=== PATIENT | female | born 1995 | race Caucasian/White ===

== ENCOUNTER 2017-02-27 22:32 | Emergency (ER) | payer SELFPAY ==
[2017-02-27] MEDS ORDERED: Ondansetron 4 MG Tab.DIS PO ONE (23:46)
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
[2017-02-28 00:12] VITALS: BP 124/58
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
== END 2017-02-28 00:12 | disposition home or self-care (01) ==
LOC: MW.ED 22:32
DX: S06.0X0A Concussion without loss of consciousness, initial encounter (principal); F17.210 Nicotine dependence, cigarettes, uncomplicated; Z91.040 Latex allergy status; Z88.8 Allergy status to other drugs, medicaments and biological substances; V49.9XXA Car occupant (driver) (passenger) injured in unspecified traffic accident, initial encounter
CPT/HCPCS: 70450; 81025; 99284; A9270; 99283

== ENCOUNTER 2017-03-08 02:52 | Emergency (ER) | payer SELFPAY ==
[2017-03-08] MEDS ORDERED: Silver Sulfadiazine 1% Crm 50 GM Tube TOP ONE (02:57)
[2017-03-08] MEDS ORDERED: Bacitracin/Neomycin/Polymyxin B Oint 28.4 GM Tube TOP ONE (03:12)
[2017-03-08] MEDS ORDERED: Ketorolac 60 MG/2 ML SDV IM ONE (03:13)
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
[2017-03-08 04:30] VITALS: BP 140/75
== END 2017-03-08 04:26 | disposition home or self-care (01) ==
LOC: MW.ED 02:52
DX: T20.00XA Burn of unspecified degree of head, face, and neck, unspecified site, initial encounter (principal); T23.002A Burn of unspecified degree of left hand, unspecified site, initial encounter; F17.210 Nicotine dependence, cigarettes, uncomplicated; Z88.8 Allergy status to other drugs, medicaments and biological substances; Z91.040 Latex allergy status; Z98.890 Other specified postprocedural states; X03.0XXA Exposure to flames in controlled fire, not in building or structure, initial encounter
CPT/HCPCS: 16000; 96372; 99284; A9270; J1885; 99283

== ENCOUNTER 2017-03-16 14:51 | Emergency (ER) | payer SELFPAY ==
[2017-03-16] MEDS ORDERED: cefTRIAXone 250 MG Vial IM ONE (15:49)
[2017-03-16] MEDS ORDERED: Silver Sulfadiazine 1% Crm 50 GM Tube TOP ONE (15:49)
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
[2017-03-16] MEDS ORDERED: Lidocaine 2% 5 ML SDV INJECT ONE (16:33)
[2017-03-16] MEDS ORDERED: cefTRIAXone 1,000 MG VIAL IM ONE (16:45)
[2017-03-16 18:39] VITALS: BP 117/67
== END 2017-03-16 17:06 | disposition home or self-care (01) ==
LOC: MW.ED 14:51
DX: T22.20XD Burn of second degree of shoulder and upper limb, except wrist and hand, unspecified site, subsequent encounter (principal); L08.9 Local infection of the skin and subcutaneous tissue, unspecified; J45.909 Unspecified asthma, uncomplicated; F32.9 Major depressive disorder, single episode, unspecified; F17.210 Nicotine dependence, cigarettes, uncomplicated; Z88.8 Allergy status to other drugs, medicaments and biological substances; Z91.040 Latex allergy status
CPT/HCPCS: 16020; 96372; 99283; A9270; J0696

== ENCOUNTER 2017-05-15 22:30 | Emergency (ER) | payer SELFPAY ==
--- NOTE | 2017-05-15 23:23 | EDM.PDOC ---
ED HPI GENERAL MEDICAL PROBLEM - General Chief Complaint: Abdominal Pain Stated Complaint: ABDOMINAL PAIN Time Seen by Provider: 05/15/17 23:18 - History of Present Illness INITIAL COMMENTS - FREE TEXT/NARRATIVE: HISTORY AND PHYSICAL: History of present illness: The patient is a healthy 22-year-old female who presents with complaints of left lower quadrant pain that started since her last period which started on May 03 and the pain seemed to worsen a proximally 9 days ago. She says it comes and goes in intensity and is not associated with nausea vomiting fever chills flank pain dysuria or hematuria. The patient has a significant surgical history of having 2 laparoscopies done in the past in [place], the last one was in August 2016, and on that last one she was diagnosed with endometriosis and she had a large left ovarian cyst that was drained surgically. Patient said she has a history of multiple ovarian cysts. Patient has been eating and drinking normally but she says that she's had a recent change in diet and over the last few months she has had more loose stools that are not black or bloody and she has not seen her provider for that. The patient denies abdominal pain or cramping with her bowel movements and is more concerned about possibly an ovarian cyst. The patient is sexually active and does not use protection and is unsure if she's but she did do a test the middle of April that was negative. The patient currently is not having any vaginal bleeding or spotting and has no dysuria frequency or urgency. She has not taken anything today for the pain. She says presses on the area of her left lower quadrant the pain gets better. Patient has one partner and says that she is having unprotected sex because she would not mind getting she has no vaginal discharge Review of systems: As per history of present illness and below otherwise all systems reviewed and negative. Past medical history: As per history of present illness and as reviewed below otherwise noncontributory. Surgical history: As per history of present illness and as reviewed below otherwise noncontributory. Social history: No reported history of drug or alcohol abuse. Family history: As per history of present illness and as reviewed below otherwise noncontributory. Physical exam: Gen.: Well-developed well-nourished female who is nontoxic and moves easily in the ED without distress. Vital signs are noted by me HEENT: Atraumatic, normocephalic, negative for conjunctival pallor or scleral icterus, mucous membranes moist, throat clear, neck supple, nontender, trachea midline. Lungs: Clear to auscultation, breath sounds equal bilaterally, chest nontender. Heart: S1S2, regular rate and rhythm no overt murmurs Abdomen: Soft, nondistended, there is no fullness no tympany on percussion and bowel sounds are hypoactive. There is minimal tenderness on deep palpation in the left lower quadrant and no tenderness throughout the rest of the abdomen. There is no rebound or guarding. Negative for masses or hepatosplenomegaly. Pelvis: Stable nontender. Genitourinary: Deferred. Rectal: Deferred. Extremities: Atraumatic, negative for cords or calf pain. Neurovascular unremarkable. Neuro: Awake, alert, oriented. Cranial nerves II through XII unremarkable. Cerebellum unremarkable. Motor and sensory unremarkable throughout. Exam nonfocal. Diagnostics: UA UCG urine culture if indicated CBC CMP pelvic ultrasound Therapeutics: If UCG is negative, Toradol Impression: Left lower quadrant pain with history of endometriosis, stable Definitive disposition and diagnosis as appropriate pending reevaluation and review of above. abdominal Pain Score (Numeric/FACES): 6 - Related Data Allergies Allergy/AdvReac Type Severity Reaction Status Date / Time latex Allergy Blisters Verified 05/15/17 22:34 Latex, Natural Rubber Allergy Blisters Verified 05/15/17 22:34 phenazopyridine Allergy Vomiting Verified 05/15/17 22:34 [From Pyridium] chloraprep Allergy Blisters Uncoded 05/15/17 22:34 Home Meds: Home Meds . [No Known Home Meds] 02/27/17 [History] Past Medical History - Past Health History Medical/Surgical History: Denies Medical/Surgical History HEENT History: Reports: None Cardiovascular History: Reports: Other (See Below) Other Cardiovascular History: Heart conditon but doesn't know the exact diagnosis Respiratory History: Reports: Asthma Gastrointestinal History: Reports: None Genitourinary History: Reports: None Other Genitourinary History: endometriosis CLIENT LIAISON History: Reports: 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 Other OB/BYN History: pt reports not being on control Musculoskeletal History: Reports: None Neurological History: Reports: None Psychiatric History: Reports: Anxiety, Depression Endocrine/Metabolic History: Reports: None Hematologic History: Reports: None Immunologic History: Reports: None Oncologic (Cancer) History: Reports: None Dermatologic History: Reports: None - Infectious Disease History Infectious Disease History: Reports: Herpes - Past Surgical History GI Surgical History: Reports: Other (See Below) Other GI Surgeries/Procedures: Laparoscopy Social & Family History - Family History Family Medical History: Noncontributory - Tobacco Use Smoking Status *Q: Current Every Day Smoker Years of Tobacco use: 6 Packs/Tins Daily: 1 Used Tobacco, but Quit: No Second Hand Smoke Exposure: No - Caffeine Use Caffeine Use: Reports: None Caffeine Use Comment: 3drinks/day - Recreational Drug Use Recreational Drug Use: No ED ROS GENERAL - Review of Systems Review Of Systems: ROS reveals no pertinent complaints other than HPI. ED EXAM, GENERAL - Physical Exam Exam: See Below (See dictation) Course - Vital Signs Last Recorded V/S: Last Vital Signs Temp 36.3 C 05/15/17 22:35 Pulse 97 05/15/17 22:35 Resp 14 05/15/17 22:35 BP 136/78 05/15/17 22:35 Pulse Ox 95 05/15/17 22:35 - Orders/Labs/Meds Orders: Active Orders 24 hr Category Date Time Status Pelvis Non OB Comp [US] Stat Exams 05/15/17 23:19 Ordered Labs: Laboratory Tests 05/15/17 05/15/17 05/15/17 Range/Units 23:20 23:20 23:26 WBC 9.95 (4.0-11.0) K/uL RBC 4.33 (4.30-5.90) M/uL Hgb 13.0 (12.0-16.0) g/dL Hct 38.0 (36.0-46.0) % MCV 87.8 (80.0-98.0) fL MCH 30.0 (27.0-32.0) pg MCHC 34.2 (31.0-37.0) g/dL RDW Std Deviation 42.7 (28.0-62.0) fl RDW Coeff of [place] 13 (11.0-15.0) % Plt Count 309 (150-400) K/uL MPV 9.60 (7.40-12.00) fL Neut % (Auto) 66.7 (48.0-80.0) % Lymph % (Auto) 25.5 (16.0-40.0) % [place] % (Auto) 6.4 (0.0-15.0) % Eos % (Auto) 1.2 (0.0-7.0) % Baso % (Auto) 0.2 (0.0-1.5) % Neut # (Auto) 6.6 H (1.4-5.7) K/uL Lymph # (Auto) 2.5 H (0.6-2.4) K/uL [place] # (Auto) 0.6 (0.0-0.8) K/uL Eos # (Auto) 0.1 (0.0-0.7) K/uL Baso # (Auto) 0.0 (0.0-0.1) K/uL Nucleated RBC % 0.0 /100WBC Nucleated RBCs # 0 K/uL Sodium (136-146) mmol/L Potassium (3.5-5.1) mmol/L Chloride (98-110) mmol/L Carbon Dioxide (21-31) mmol/L BUN (6.0-23.0) mg/dL Creatinine (0.6-1.5) mg/dL Est Cr Clr Drug Dosing mL/min Estimated GFR (MDRD) ml/min Glucose (60-110) mg/dL Calcium (8.8-10.8) mg/dL Total Bilirubin (0.1-1.5) mg/dL AST (5-40) IU/L ALT (8-54) IU/L Alkaline Phosphatase (40-150) Total Protein (6.0-8.0) g/dL Albumin (3.5-5.0) g/dL Globulin (2.0-3.5) g/dL Albumin/Globulin Ratio (1.3-2.8) Urine Color YELLOW Urine Appearance SLT CLOUDY Urine pH 7.5 (5.0-8.0) Ur Specific [place] 1.020 (1.001-1.035) Urine Protein NEGATIVE (NEGATIVE) mg/dL Urine Glucose (UA) NEGATIVE (NEGATIVE) mg/dL Urine Ketones NEGATIVE (NEGATIVE) mg/dL Urine Occult Blood TRACE-INTACT (NEGATIVE) Urine Nitrite NEGATIVE (NEGATIVE) Urine Bilirubin NEGATIVE (NEGATIVE) Urine Urobilinogen 0.2 (<2.0) EU/dL Ur Leukocyte Esterase NEGATIVE (NEGATIVE) Urine RBC 0-3 (0-2/HPF) Urine WBC 0-1 (0-5/HPF) Ur Epithelial Cells RARE (NONE-FEW) Amorphous Sediment LIGHT (NEGATIVE) Urine Bacteria FEW (NEGATIVE) Urine HCG, Qual NEGATIVE (NEGATIVE) 05/15/17 Range/Units 23:26 WBC (4.0-11.0) K/uL RBC (4.30-5.90) M/uL Hgb (12.0-16.0) g/dL Hct (36.0-46.0) % MCV (80.0-98.0) fL MCH (27.0-32.0) pg MCHC (31.0-37.0) g/dL RDW Std Deviation (28.0-62.0) fl RDW Coeff of [place] (11.0-15.0) % Plt Count (150-400) K/uL MPV (7.40-12.00) fL Neut % (Auto) (48.0-80.0) % Lymph % (Auto) (16.0-40.0) % [place] % (Auto) (0.0-15.0) % Eos % (Auto) (0.0-7.0) % Baso % (Auto) (0.0-1.5) % Neut # (Auto) (1.4-5.7) K/uL Lymph # (Auto) (0.6-2.4) K/uL [place] # (Auto) (0.0-0.8) K/uL Eos # (Auto) (0.0-0.7) K/uL Baso # (Auto) (0.0-0.1) K/uL Nucleated RBC % /100WBC Nucleated RBCs # K/uL Sodium 139 (136-146) mmol/L Potassium 3.8 (3.5-5.1) mmol/L Chloride 105 (98-110) mmol/L Carbon Dioxide 24 (21-31) mmol/L BUN 11 (6.0-23.0) mg/dL Creatinine 0.8 (0.6-1.5) mg/dL Est Cr Clr Drug Dosing 109.08 mL/min Estimated GFR (MDRD) > 60.0 ml/min Glucose 100 (60-110) mg/dL Calcium 9.9 (8.8-10.8) mg/dL Total Bilirubin 0.4 (0.1-1.5) mg/dL AST 12 (5-40) IU/L ALT 9 (8-54) IU/L Alkaline Phosphatase 64 (40-150) Total Protein 7.8 (6.0-8.0) g/dL Albumin 4.7 (3.5-5.0) g/dL Globulin 3.1 (2.0-3.5) g/dL Albumin/Globulin Ratio 1.5 (1.3-2.8) Urine Color Urine Appearance Urine pH (5.0-8.0) Ur Specific [place] (1.001-1.035) Urine Protein (NEGATIVE) mg/dL Urine Glucose (UA) (NEGATIVE) mg/dL Urine Ketones (NEGATIVE) mg/dL Urine Occult Blood (NEGATIVE) Urine Nitrite (NEGATIVE) Urine Bilirubin (NEGATIVE) Urine Urobilinogen (<2.0) EU/dL Ur Leukocyte Esterase (NEGATIVE) Urine RBC (0-2/HPF) Urine WBC (0-5/HPF) Ur Epithelial Cells (NONE-FEW) Amorphous Sediment (NEGATIVE) Urine Bacteria (NEGATIVE) Urine HCG, Qual (NEGATIVE) Meds: Medications Discontinued Medications Generic Name Dose Route Start Last Admin Trade Name Freq PRN Reason Stop Dose Admin Ketorolac Tromethamine 60 mg 05/16/17 00:02 05/16/17 00:34 Toradol IM 05/16/17 00:03 60 mg ONETIME ONE Administration Departure - Departure Time of Disposition: 00:50 Disposition: Home, Self-Care 01 Condition: Good Clinical Impression: Pelvic pain - Discharge Information Forms: ED Department Discharge Additional Instructions: The following information is given to patients seen in the emergency department who are being discharged to home. This information is to outline your options for follow-up care. We provide all patients seen in our emergency department with a follow-up referral. The need for follow-up, as well as the timing and circumstances, are variable depending upon the specifics of your emergency department visit. If you don't have a primary care physician on staff, we will provide you with a referral. We always advise you to contact your personal physician following an emergency department visit to inform them of the circumstance of the visit and for follow-up with them and/or the need for any referrals to a consulting specialist. The emergency department will also refer you to a specialist when appropriate. This referral assures that you have the opportunity for followup care with a specialist. All of these measure are taken in an effort to provide you with optimal care, which includes your followup. Under all circumstances we always encourage you to contact your private physician who remains a resource for coordinating your care. When calling for followup care, please make the office aware that this follow-up is from your recent emergency room visit. If for any reason you are refused follow-up, please contact the [facility] emergency department at and ask to speak to the emergency department charge nurse. [facility] [address] [address] Please use [id number] medications for pain and discomfort and please call tomorrow to get a clinic appointment as we discussed in the next few days. Return to ER as needed and as discussed - My Orders Last 24 Hours: My Active Orders 05/15/17 23:19 Pelvis Non OB Comp [US] Stat - Assessment/Plan Last 24 Hours: My Active Orders 05/15/17 23:19 Pelvis Non OB Comp [US] Stat
[2017-05-15 23:54] LABS: CHLORIDE,CL 105 mmol/L (98-110); SODIUM,NA 139 mmol/L (136-146)
[2017-05-16] MEDS ORDERED: Ketorolac 60 MG/2 ML SDV IM ONE (00:02)
[2017-05-16 01:19] VITALS: BP 123/66
--- NOTE | 2017-05-16 13:34 | US ---
EXAM DATE: 05/15/17 PATIENT'S AGE: 22 Patient: VANESSA CLARKE Facility: [place], [place] Site . Site : 1997 Study: US Pelvis [id number] 12:09:20 AM Ordering Physician: Doctor Andrade Final Report: INDICATION: LT PELVIC PAIN TECHNIQUE: Ultrasound pelvis transabdominal and transvaginal. Real time sonographic images with Spectral and color Doppler imaging of the ovaries were obtained. COMPARISON: None FINDINGS: Uterus: 7.9 x 4.8 x 3.2 cm. Normal echotexture of the myometrium. No masses. Small amount fluid within the cervical canal Endometrium: 8 mm. No sign of endometrial mass or fluid. Right ovary: 3.6 x 2.4 x 3.2 cm. No ovarian or adnexal masses. Normal arterial and venous blood flow. Left ovary: 3.9 x 2.9 x 4.2 cm. Dominant follicular cyst. No solid ovarian or adnexal masses. Normal arterial and venous blood flow. Cul-de-sac: Trace amount of free fluid within the pelvic cul-de-sac. IMPRESSION: Nonspecific fluid within the cervical canal. Dictated by Joshua Alcala MD @ 05/16/2017 12:12:49 AM Dictated by: Joshua Alcala MD @ 05/16/2017 00:13:57 (Electronic Signature) Report Signed by Proxy. LAWANDA
== END 2017-05-16 01:14 | disposition home or self-care (01) ==
LOC: MW.ED 22:30
DX: R10.2 Pelvic and perineal pain (principal); R10.32 Left lower quadrant pain; J45.909 Unspecified asthma, uncomplicated; Z91.040 Latex allergy status; Z88.8 Allergy status to other drugs, medicaments and biological substances; F17.210 Nicotine dependence, cigarettes, uncomplicated
CPT/HCPCS: 36415; 76856; 80053; 81001; 81025; 85025; 96372; 99284; J1885; 99283

== ENCOUNTER 2017-05-16 22:51 | Emergency (ER) | payer SELFPAY ==
[2017-05-16] MEDS ORDERED: Ondansetron 4 MG/2 ML SDV IVPUSH ONE (22:57)
[2017-05-16] MEDS ORDERED: Ketorolac 30 MG/ML SDV IVPUSH ONE (22:57)
[2017-05-16] MEDS ORDERED: Sodium Chloride 0.9% 1,000 ML IV ONE (22:57)
--- NOTE | 2017-05-16 22:59 | EDM.PDOC ---
ED HPI GENERAL MEDICAL PROBLEM - General Chief Complaint: Abdominal Pain Stated Complaint: LOWER ABDOMINAL PAIN Time Seen by Provider: 05/16/17 22:58 Source of Information: Reports: Patient - History of Present Illness INITIAL COMMENTS - FREE TEXT/NARRATIVE: HISTORY AND PHYSICAL: History of present illness: Patient in for left lower quadrant pain, see Dr. Saunders's note from yesterday with same complaint Patient has a history of endometriosis associated with left lower quadrant pain she states"is in for the usual". She is also had a history of ovarian cysts, ultrasound was performed yesterday and essentially negative per radiology No fever nausea vomiting chills sweats no chest pain shortness breath headache dizziness or palpitation no bowel or urine symptoms Review of systems: As per history of present illness and below otherwise all systems reviewed and negative. Past medical history: As per history of present illness and as reviewed below otherwise noncontributory. Surgical history: As per history of present illness and as reviewed below otherwise noncontributory. Social history: No reported history of drug or alcohol abuse. Family history: As per history of present illness and as reviewed below otherwise noncontributory. Physical exam: HEENT: Atraumatic, normocephalic, pupils reactive, negative for conjunctival pallor or scleral icterus, mucous membranes moist, throat clear, neck supple, nontender, trachea midline. Lungs: Clear to auscultation, breath sounds equal bilaterally, chest nontender. Heart: S1S2, regular, negative for clicks, rubs, or JVD. Abdomen: Soft, nondistended, nontender. Negative for masses or hepatosplenomegaly. Negative for costovertebral tenderness. Pelvis: Stable nontender. Genitourinary: Deferred. Rectal: Deferred. Extremities: Atraumatic, negative for cords or calf pain. Neurovascular unremarkable. Neuro: Awake, alert, oriented. Cranial nerves II through XII unremarkable. Cerebellum unremarkable. Motor and sensory unremarkable throughout. Exam nonfocal. Diagnostics: []Lab as below Therapeutics: []1 L normal saline bolus Toradol 30 mg IV Zofran 8 mg IV Cata[place] 50 mg by mouth 3 times a day when necessary #30 no refill Follow-up with [facility] Impression: Left lower quadrant pain, history of endometriosis with similar pain Definitive disposition and diagnosis as appropriate pending reevaluation and review of above. lower abdominal area Pain Score (Numeric/FACES): 8 - Related Data Allergies Allergy/AdvReac Type Severity Reaction Status Date / Time latex Allergy Blisters Verified 05/16/17 22:57 Latex, Natural Rubber Allergy Blisters Verified 05/16/17 22:57 phenazopyridine Allergy Vomiting Verified 05/16/17 22:57 [From Pyridium] chloraprep Allergy Blisters Uncoded 05/16/17 22:57 Home Meds: Home Meds . 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 Other OB/BYN History: pt reports not being on control Musculoskeletal History: Reports: None Neurological History: Reports: None Psychiatric History: Reports: Anxiety, Depression Endocrine/Metabolic History: Reports: None Hematologic History: Reports: None Immunologic History: Reports: None Oncologic (Cancer) History: Reports: None Dermatologic History: Reports: None - Infectious Disease History Infectious Disease History: Reports: Herpes - Past Surgical History GI Surgical History: Reports: Other (See Below) Other GI Surgeries/Procedures: Laparoscopy Social & Family History - Family History Family Medical History: Noncontributory - Tobacco Use Smoking Status *Q: Current Every Day Smoker Years of Tobacco use: 6 Packs/Tins Daily: 1 Used Tobacco, but Quit: No Second Hand Smoke Exposure: No - Caffeine Use Caffeine Use: Reports: None Caffeine Use Comment: 3drinks/day - Recreational Drug Use Recreational Drug Use: No ED ROS GENERAL - Review of Systems Review Of Systems: ROS reveals no pertinent complaints other than HPI. ED EXAM, GENERAL - Physical Exam Exam: See Below Course - Vital Signs Last Recorded V/S: Last Vital Signs Temp 36.2 C 05/16/17 22:57 Pulse 111 H 05/16/17 22:57 Resp 18 05/16/17 22:57 BP 131/75 05/16/17 22:57 Pulse Ox 98 05/16/17 22:57 - Orders/Labs/Meds Orders: Active Orders 24 hr Category Date Time Status HCG QUALITATIVE,URINE [URCHEM] Stat Lab 05/16/17 22:57 Uncollected UA W/MICROSCOPIC [URIN] Stat Lab 05/16/17 22:57 Uncollected Ondansetron [Zofran ODT] Med 05/17/17 00:14 Active 8 mg PO ONETIME PRN Medication Orders Ondansetron HCl (Zofran Odt) 8 mg PO ONETIME PRN PRN Reason: Nausea/Vomiting Labs: Laboratory Tests 05/16/17 05/16/17 05/16/17 Range/Units 23:17 23:17 23:17 WBC 8.48 (4.0-11.0) K/uL RBC 4.28 L (4.30-5.90) M/uL Hgb 12.8 (12.0-16.0) g/dL Hct 37.6 (36.0-46.0) % MCV 87.9 (80.0-98.0) fL MCH 29.9 (27.0-32.0) pg MCHC 34.0 (31.0-37.0) g/dL RDW Std Deviation 42.8 (28.0-62.0) fl RDW Coeff of [place] 14 (11.0-15.0) % Plt Count 298 (150-400) K/uL MPV 9.30 (7.40-12.00) fL Neut % (Auto) 67.7 (48.0-80.0) % Lymph % (Auto) 25.2 (16.0-40.0) % [place] % (Auto) 6.0 (0.0-15.0) % Eos % (Auto) 0.9 (0.0-7.0) % Baso % (Auto) 0.2 (0.0-1.5) % Neut # (Auto) 5.7 (1.4-5.7) K/uL Lymph # (Auto) 2.1 (0.6-2.4) K/uL [place] # (Auto) 0.5 (0.0-0.8) K/uL Eos # (Auto) 0.1 (0.0-0.7) K/uL Baso # (Auto) 0.0 (0.0-0.1) K/uL Nucleated RBC % 0.0 /100WBC Nucleated RBCs # 0 K/uL Sodium 141 (136-146) mmol/L Potassium 3.8 (3.5-5.1) mmol/L Chloride 109 (98-110) mmol/L Carbon Dioxide 23 (21-31) mmol/L BUN 15 (6.0-23.0) mg/dL Creatinine 0.9 (0.6-1.5) mg/dL Est Cr Clr Drug Dosing 96.71 mL/min Estimated GFR (MDRD) > 60.0 ml/min Glucose 88 (60-110) mg/dL Calcium 9.4 (8.8-10.8) mg/dL Total Bilirubin 0.6 (0.1-1.5) mg/dL AST 12 (5-40) IU/L ALT 9 (8-54) IU/L Alkaline Phosphatase 61 (40-150) C-Reactive Protein 0.05 (0.0-0.5) mg/dL Total Protein 7.4 (6.0-8.0) g/dL Albumin 4.5 (3.5-5.0) g/dL Globulin 2.9 (2.0-3.5) g/dL Albumin/Globulin Ratio 1.6 (1.3-2.8) Amylase 38 (10-90) U/L Lipase 12 (7-80) U/L Meds: Medications Generic Name Dose Route Start Last Admin Trade Name Freq PRN Reason Stop Dose Admin Ondansetron HCl 8 mg 05/17/17 00:14 Zofran Odt PO ONETIME PRN Nausea/Vomiting Discontinued Medications Generic Name Dose Route Start Last Admin Trade Name Freq PRN Reason Stop Dose Admin Sodium Chloride 1,000 mls @ 999 mls/hr 05/16/17 22:57 05/16/17 23:43 Normal Saline IV 05/16/17 23:57 Not Given STAT ONE Ketorolac Tromethamine 30 mg 05/16/17 22:57 05/16/17 23:43 Toradol IVPUSH 05/16/17 22:58 Not Given ONETIME ONE Ketorolac Tromethamine 60 mg 05/16/17 23:12 05/16/17 23:23 Toradol IM 05/16/17 23:13 60 mg ONETIME ONE Administration Ondansetron HCl 8 mg 05/16/17 22:57 05/16/17 23:43 Zofran IVPUSH 05/16/17 22:58 Not Given ONETIME ONE Departure - Departure Time of Disposition: 00:28 Disposition: Home, Self-Care 01 Condition: Good Clinical Impression: Abdominal pain - Discharge Information Forms: ED Department Discharge Additional Instructions: Medication as prescribed Return if symptoms persist or worsen 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 This information is to outline your options for follow-up care. We provide all patients seen in our emergency department with a follow-up referral. The need for follow-up, as well as the timing and circumstances, are variable depending upon the specifics of your emergency department visit. If you don't have a primary care physician on staff, we will provide you with a referral. We always advise you to contact your personal physician following an emergency department visit to inform them of the circumstance of the visit and for follow-up with them and/or the need for any referrals to a consulting specialist. The emergency department will also refer you to a specialist when appropriate. This referral assures that you have the opportunity for follow-up care with a specialist. All of these measure are taken in an effort to provide you with optimal care, which includes your follow-up. Under all circumstances we always encourage you to contact your private physician who remains a resource for coordinating your care. When calling for follow-up care, please make the office aware that this follow-up is from your recent emergency room visit. If for any reason you are refused follow-up, please contact the [facility] emergency department at and asked to speak to the emergency department charge nurse. - My Orders Last 24 Hours: My Active Orders 05/16/17 22:57 HCG QUALITATIVE,URINE [URCHEM] Stat UA W/MICROSCOPIC [URIN] Stat 05/17/17 00:14 Ondansetron [Zofran ODT] 8 mg PO ONETIME PRN - Assessment/Plan Last 24 Hours: My Active Orders 05/16/17 22:57 HCG QUALITATIVE,URINE [URCHEM] Stat UA W/MICROSCOPIC [URIN] Stat 05/17/17 00:14 Ondansetron [Zofran ODT] 8 mg PO ONETIME PRN
[2017-05-16] MEDS ORDERED: Ketorolac 60 MG/2 ML SDV IM ONE (23:12)
[2017-05-16 23:49] LABS: CHLORIDE,CL 109 mmol/L (98-110); SODIUM,NA 141 mmol/L (136-146)
[2017-05-17] MEDS ORDERED: Ondansetron 4 MG Tab.DIS PO PRN (00:14)
[2017-05-17 03:07] VITALS: BP 109/69
== END 2017-05-17 00:38 | disposition home or self-care (01) ==
LOC: MW.ED 22:51
DX: R10.32 Left lower quadrant pain (principal); J45.909 Unspecified asthma, uncomplicated; F17.210 Nicotine dependence, cigarettes, uncomplicated; Z91.040 Latex allergy status; Z88.8 Allergy status to other drugs, medicaments and biological substances
CPT/HCPCS: 36415; 80053; 82150; 83690; 85025; 86140; 96372; 99284; A9270; J1885; 99283

== ENCOUNTER 2017-07-23 00:02 | Emergency (ER) | payer SELFPAY ==
--- NOTE | 2017-07-23 00:38 | EDM.PDOC ---
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 Began having some bleeding and passed a couple of small clots today no fever nausea vomiting chills sweats no chest pain shortness breath headache dizziness palpitation no bowel or urine symptoms ] Review of systems: As per history of present illness and below otherwise all systems reviewed and negative. Past medical history: As per history of present illness and as reviewed below otherwise noncontributory. Surgical history: As per history of present illness and as reviewed below otherwise noncontributory. Social history: No reported history of drug or alcohol abuse. Family history: As per history of present illness and as reviewed below otherwise noncontributory. Physical exam: HEENT: Atraumatic, normocephalic, pupils reactive, negative for conjunctival pallor or scleral icterus, mucous membranes moist, throat clear, neck supple, nontender, trachea midline. Lungs: Clear to auscultation, breath sounds equal bilaterally, chest nontender. Heart: S1S2, regular, negative for clicks, rubs, or JVD. Abdomen: Soft, nondistended, nontender. Negative for masses or hepatosplenomegaly. Negative for costovertebral tenderness. Pelvis: Stable nontender. Genitourinary: Cervix is closed no products of conception no mass scarred lesion Rectal: Deferred. Extremities: Atraumatic, negative for cords or calf pain. Neurovascular unremarkable. Neuro: Awake, alert, oriented. Cranial nerves II through XII unremarkable. Cerebellum unremarkable. Motor and sensory unremarkable throughout. Exam nonfocal. Diagnostics: [Lab as below Ultrasound OB ] Therapeutics: [Normal saline bolus Zofran 8 mg IV ] Impression: LMP June 09, 2017 [Negative hCGs Positive home tests 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 with irregular menstruation Cervix closed Blood type AB positive Definitive disposition and diagnosis as appropriate pending reevaluation and review of above. Lower Back Pain Score (Numeric/FACES): 8 - Related Data Allergies Allergy/AdvReac Type Severity Reaction Status Date / Time latex Allergy Blisters Verified 07/23/17 00:25 Latex, Natural Rubber Allergy Blisters Verified 07/23/17 00:25 phenazopyridine Allergy Vomiting Verified 07/23/17 00:25 [From Pyridium] chloraprep Allergy Blisters Uncoded 07/23/17 00:25 Home Meds: Home Meds Vit #108/Iron/FA [ One Tablet] 1 each PO DAILY 07/23/17 [ History] Past Medical History - Past Health History Medical/Surgical History: Denies Medical/Surgical History HEENT History: Reports: None Cardiovascular History: Reports: Other (See Below) Other Cardiovascular History: Heart conditon but doesn't know the exact diagnosis Respiratory History: Reports: Asthma Gastrointestinal History: Reports: None Genitourinary History: Reports: None Other Genitourinary History: endometriosis 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 Other OB/BYN History: pt reports not being on control Musculoskeletal History: Reports: None Neurological History: Reports: None Psychiatric History: Reports: Anxiety, Depression Endocrine/Metabolic History: Reports: None Hematologic History: Reports: None Immunologic History: Reports: None Oncologic (Cancer) History: Reports: None Dermatologic History: Reports: None - Infectious Disease History Infectious Disease History: Reports: Herpes - Past Surgical History GI Surgical History: Reports: Other (See Below) Other GI Surgeries/Procedures: Laparoscopy Social & Family History - Family History Family Medical History: Noncontributory - Tobacco Use Smoking Status *Q: Current Every Day Smoker Years of Tobacco use: 6 Packs/Tins Daily: 1 Used Tobacco, but Quit: No Second Hand Smoke Exposure: No - Caffeine Use Caffeine Use: Reports: None Caffeine Use Comment: 3drinks/day - Recreational Drug Use Recreational Drug Use: No ED ROS GENERAL - Review of Systems Review Of Systems: ROS reveals no pertinent complaints other than HPI. ED EXAM, GENERAL - Physical Exam Exam: See Below Course - Vital Signs Last Recorded V/S: Last Vital Signs Temp 36.8 C 07/23/17 00:28 Pulse 98 07/23/17 00:28 Resp 19 07/23/17 00:28 BP 119/75 07/23/17 00:28 Pulse Ox 98 07/23/17 00:28 - Orders/Labs/Meds Orders: Active Orders 24 hr Category Date Time Status OB 1st Tri Sgl 1st Gest [US] Stat Exams 07/23/17 00:36 Taken Labs: Laboratory Tests 07/23/17 07/23/17 07/23/17 Range/Units 00:50 00:50 00:50 WBC 9.50 (4.0-11.0) K/uL RBC 4.28 L (4.30-5.90) M/uL Hgb 13.1 (12.0-16.0) g/dL Hct 37.7 (36.0-46.0) % MCV 88.1 (80.0-98.0) fL MCH 30.6 (27.0-32.0) pg MCHC 34.7 (31.0-37.0) g/dL RDW Std Deviation 43.4 (28.0-62.0) fl RDW Coeff of [place] 13 (11.0-15.0) % Plt Count 299 (150-400) K/uL MPV 9.40 (7.40-12.00) fL Neut % (Auto) 52.9 (48.0-80.0) % Lymph % (Auto) 34.8 (16.0-40.0) % [place] % (Auto) 8.6 (0.0-15.0) % Eos % (Auto) 3.4 (0.0-7.0) % Baso % (Auto) 0.3 (0.0-1.5) % Neut # (Auto) 5.0 (1.4-5.7) K/uL Lymph # (Auto) 3.3 H (0.6-2.4) K/uL [place] # (Auto) 0.8 (0.0-0.8) K/uL Eos # (Auto) 0.3 (0.0-0.7) K/uL Baso # (Auto) 0.0 (0.0-0.1) K/uL Nucleated RBC % 0.0 /100WBC Nucleated RBCs # 0 K/uL Sodium 139 (136-146) mmol/L Potassium 3.4 L (3.5-5.1) mmol/L Chloride 107 (98-110) mmol/L Carbon Dioxide 23 (21-31) mmol/L BUN 10 (6.0-23.0) mg/dL Creatinine 0.8 (0.6-1.5) mg/dL Est Cr Clr Drug Dosing 109.08 mL/min Estimated GFR (MDRD) > 60.0 ml/min Glucose 94 (60-110) mg/dL Calcium 10.1 (8.8-10.8) mg/dL Total Bilirubin 0.4 (0.1-1.5) mg/dL AST 16 (5-40) IU/L ALT 10 (8-54) IU/L Alkaline Phosphatase 61 (40-150) Total Protein 7.6 (6.0-8.0) g/dL Albumin 4.5 (3.5-5.0) g/dL Globulin 3.1 (2.0-3.5) g/dL Albumin/Globulin Ratio 1.5 (1.3-2.8) HCG, Quant < 1.2 mIU/mL Urine Color Urine Appearance Urine pH (5.0-8.0) Ur Specific [place] (1.001-1.035) Urine Protein (NEGATIVE) mg/dL Urine Glucose (UA) (NEGATIVE) mg/dL Urine Ketones (NEGATIVE) mg/dL Urine Occult Blood (NEGATIVE) Urine Nitrite (NEGATIVE) Urine Bilirubin (NEGATIVE) Urine Urobilinogen (<2.0) EU/dL Ur Leukocyte Esterase (NEGATIVE) Urine HCG, Qual (NEGATIVE) Blood Type AB POSITIVE 07/23/17 07/23/17 Range/Units 01:33 01:33 WBC (4.0-11.0) K/uL RBC (4.30-5.90) M/uL Hgb (12.0-16.0) g/dL Hct (36.0-46.0) % MCV (80.0-98.0) fL MCH (27.0-32.0) pg MCHC (31.0-37.0) g/dL RDW Std Deviation (28.0-62.0) fl RDW Coeff of [place] (11.0-15.0) % Plt Count (150-400) K/uL MPV (7.40-12.00) fL Neut % (Auto) (48.0-80.0) % Lymph % (Auto) (16.0-40.0) % [place] % (Auto) (0.0-15.0) % Eos % (Auto) (0.0-7.0) % Baso % (Auto) (0.0-1.5) % Neut # (Auto) (1.4-5.7) K/uL Lymph # (Auto) (0.6-2.4) K/uL [place] # (Auto) (0.0-0.8) K/uL Eos # (Auto) (0.0-0.7) K/uL Baso # (Auto) (0.0-0.1) K/uL Nucleated RBC % /100WBC Nucleated RBCs # K/uL Sodium (136-146) mmol/L Potassium (3.5-5.1) mmol/L Chloride (98-110) mmol/L Carbon Dioxide (21-31) mmol/L BUN (6.0-23.0) mg/dL Creatinine (0.6-1.5) mg/dL Est Cr Clr Drug Dosing mL/min Estimated GFR (MDRD) ml/min Glucose (60-110) mg/dL Calcium (8.8-10.8) mg/dL Total Bilirubin (0.1-1.5) mg/dL AST (5-40) IU/L ALT (8-54) IU/L Alkaline Phosphatase (40-150) Total Protein (6.0-8.0) g/dL Albumin (3.5-5.0) g/dL Globulin (2.0-3.5) g/dL Albumin/Globulin Ratio (1.3-2.8) HCG, Quant mIU/mL Urine Color YELLOW Urine Appearance CLEAR Urine pH 6.0 (5.0-8.0) Ur Specific [place] 1.020 (1.001-1.035) Urine Protein NEGATIVE (NEGATIVE) mg/dL Urine Glucose (UA) NEGATIVE (NEGATIVE) mg/dL Urine Ketones NEGATIVE (NEGATIVE) mg/dL Urine Occult Blood LARGE H (NEGATIVE) Urine Nitrite NEGATIVE (NEGATIVE) Urine Bilirubin NEGATIVE (NEGATIVE) Urine Urobilinogen 0.2 (<2.0) EU/dL Ur Leukocyte Esterase SMALL (NEGATIVE) Urine HCG, Qual NEGATIVE (NEGATIVE) Blood Type Meds: Medications Discontinued Medications Generic Name Dose Route Start Last Admin Trade Name Freq PRN Reason Stop Dose Admin Sodium Chloride 1,000 mls @ 999 mls/hr 07/23/17 01:22 07/23/17 02:22 Normal Saline IV 07/23/17 02:22 999 mls/hr STAT ONE Administration Morphine Sulfate 2 mg 07/23/17 01:22 07/23/17 02:31 Morphine IV 10/18/17 01:23 2 mg ONETIME ONE Administration Ondansetron HCl 8 mg 07/23/17 01:22 07/23/17 02:22 Zofran IVPUSH 07/23/17 01:23 8 mg ONETIME ONE Administration Departure - Departure Time of Disposition: 03:12 Disposition: Home, Self-Care 01 Condition: Good Clinical Impression: 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, Irregular menstruation - Discharge Information Referrals: PCP,None [Primary Care Provider] - Forms: ED Department Discharge Additional Instructions: Ibuprofen 400-800 mg by mouth 3 times a day when necessary 7-10 days Return if symptoms persist or worsen Follow-up with gynecology, call for appointment and number below for appropriate follow-up [facility] [address] [address] The following information is given to patients seen in the emergency department who are being discharged to home. This information is to outline your options for follow-up care. We provide all patients seen in our emergency department with a follow-up referral. The need for follow-up, as well as the timing and circumstances, are variable depending upon the specifics of your emergency department visit. If you don't have a primary care physician on staff, we will provide you with a referral. We always advise you to contact your personal physician following an emergency department visit to inform them of the circumstance of the visit and for follow-up with them and/or the need for any referrals to a consulting specialist. The emergency department will also refer you to a specialist when appropriate. This referral assures that you have the opportunity for follow-up care with a specialist. All of these measure are taken in an effort to provide you with optimal care, which includes your follow-up. Under all circumstances we always encourage you to contact your private physician who remains a resource for coordinating your care. When calling for follow-up care, please make the office aware that this follow-up is from your recent emergency room visit. If for any reason you are refused follow-up, please contact the [facility] emergency department at and asked to speak to the emergency department charge nurse. - My Orders Last 24 Hours: My Active Orders 07/23/17 00:36 OB 1st Tri Sgl 1st Gest [US] Stat - Assessment/Plan Last 24 Hours: My Active Orders 07/23/17 00:36 OB 1st Tri Sgl 1st Gest [US] Stat
[2017-07-23 01:17] LABS: CHLORIDE,CL 107 mmol/L (98-110); SODIUM,NA 139 mmol/L (136-146)
[2017-07-23] MEDS ORDERED: Morphine 10 MG/ML Syringe IV ONE (01:22)
[2017-07-23] MEDS ORDERED: Sodium Chloride 0.9% 1,000 ML IV ONE (01:22)
[2017-07-23] MEDS ORDERED: Ondansetron 4 MG/2 ML SDV IVPUSH ONE (01:22)
[2017-07-23 03:15] VITALS: BP 110/74
--- NOTE | 2017-07-23 13:18 | US ---
EXAM DATE: 07/23/17 PATIENT'S AGE: 22 Patient: VANESSA CLARKE Facility: [place], [place] Site . Site : 1995 Study: US OB Pelvis [id number]/23/2017 2:08:53 AM Ordering Physician: Stuart Fisher Final Report: INDICATION: Bleeding TECHNIQUE: Ultrasound OB pelvis transvaginal. Real time do scale imaging of the pelvis was performed. COMPARISON: 05/15/17. FINDINGS: LMP: 06/18/2017 Sonographic imaging demonstrates no evidence of an intrauterine gestational sac. No evidence of debris or fluid in the endometrial canal. The cervix is closed. The myometrium appears normal. The ovaries and adnexa are normal. Trace free fluid in the cul-de-sac. IMPRESSION: No evidence for intrauterine gestational sac. No fluid or debris in the endometrial canal. Correlate with beta HCG levels. Sonographically normal ovaries and adnexa. Dictated by Zeus Huffman MD @ 07/23/2017 2:23:03 AM Dictated by: Zeus Huffman MD @ 07/23/2017 02:23:09 (Electronic Signature) Report Signed by Proxy. LAWANDA
== END 2017-07-23 03:16 | disposition home or self-care (01) ==
LOC: MW.ED 00:02
DX: N92.6 Irregular menstruation, unspecified (principal); N80.9 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, unspecified; F17.210 Nicotine dependence, cigarettes, uncomplicated; Z88.8 Allergy status to other drugs, medicaments and biological substances; Z91.040 Latex allergy status
CPT/HCPCS: 36415; 76801; 80053; 81003; 81025; 84702; 85025; 86900; 86901; 96361; 96374; 96375; 99284; J2270; J2405; J7040; 99283

== ENCOUNTER 2017-10-09 22:27 | Emergency (ER) | payer SELFPAY ==
--- NOTE | 2017-10-10 00:15 | EDM.PDOC ---
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 Stated Complaint: UNK Time Seen by Provider: 10/10/17 00:15 Source of Information: Reports: Patient - History of Present Illness INITIAL COMMENTS - FREE TEXT/NARRATIVE: HISTORY AND PHYSICAL: History of present illness: [Patient with history of endometriosis presents with 5 out of 10 pain diffuse lower abdomen pelvic nonradiating pain consistent with usual symptoms she has been taking ibuprofen and Midol as well as aspirin without benefit He is currently menstruating she has had several loose stools which is consistent with her usual history no fever nausea vomiting chills sweats no chest pain shortness breath headache dizziness or palpitations no urine symptoms no vaginal discharge ] Review of systems: As per history of present illness and below otherwise all systems reviewed and negative. Past medical history: As per history of present illness and as reviewed below otherwise noncontributory. Surgical history: As per history of present illness and as reviewed below otherwise noncontributory. Social history: No reported history of drug or alcohol abuse. Family history: As per history of present illness and as reviewed below otherwise noncontributory. Physical exam: HEENT: Atraumatic, normocephalic, pupils reactive, negative for conjunctival pallor or scleral icterus, mucous membranes moist, throat clear, neck supple, nontender, trachea midline. Lungs: Clear to auscultation, breath sounds equal bilaterally, chest nontender. Heart: S1S2, regular, negative for clicks, rubs, or JVD. Abdomen: Soft, nondistended, nontender. Negative for masses or hepatosplenomegaly. Negative for costovertebral tenderness. Pelvis: Stable nontender. Genitourinary: Deferred. Rectal: Deferred. Extremities: Atraumatic, negative for cords or calf pain. Neurovascular unremarkable. Neuro: Awake, alert, oriented. Cranial nerves II through XII unremarkable. Cerebellum unremarkable. Motor and sensory unremarkable throughout. Exam nonfocal. Diagnostics: [CBC CMP UA hCG ] Therapeutics: [Toradol's 30 mg IV 1 L normal saline bolus ] Tramadol 50 mg by mouth 3 times a day when necessary #30 no refill Impression: [Abdominal pain History of endometriosis] Definitive disposition and diagnosis as appropriate pending reevaluation and review of above. lower abdomin Pain Score (Numeric/FACES): 6 - Related Data Allergies Allergy/AdvReac Type Severity Reaction Status Date / Time latex Allergy Blisters Verified 07/23/17 00:25 Latex, Natural Rubber Allergy Blisters Verified 07/23/17 00:25 lorazepam [From Ativan] Allergy Seizure Verified 10/09/17 23:12 phenazopyridine Allergy Vomiting Verified 07/23/17 00:25 [From Pyridium] chloraprep Allergy Blisters Uncoded 07/23/17 00:25 Home Meds: Home Meds valACYclovir HCl [Valtrex] 500 mg PO TID 10/09/17 [History] Past Medical History - Past Health History Medical/Surgical History: Denies Medical/Surgical History HEENT History: Reports: None Cardiovascular History: Reports: Other (See Below) Other Cardiovascular History: Heart conditon but doesn't know the exact diagnosis Respiratory History: Reports: Asthma Gastrointestinal History: Reports: None Genitourinary History: Reports: None Other Genitourinary History: endometriosis 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 Other OB/BYN History: pt reports not being on control Musculoskeletal History: Reports: None Neurological History: Reports: None Psychiatric History: Reports: Anxiety, Depression Endocrine/Metabolic History: Reports: None Hematologic History: Reports: None Immunologic History: Reports: None Oncologic (Cancer) History: Reports: None Dermatologic History: Reports: None - Infectious Disease History Infectious Disease History: Reports: None - Past Surgical History Head Surgeries/Procedures: Reports: None GI Surgical History: Reports: Other (See Below) Other GI Surgeries/Procedures: Laparoscopy Social & Family History - Family History Family Medical History: Noncontributory - Tobacco Use Smoking Status *Q: Never Smoker Years of Tobacco use: 6 Packs/Tins Daily: 1 Used Tobacco, but Quit: No Second Hand Smoke Exposure: No - Caffeine Use Caffeine Use: Reports: None Caffeine Use Comment: 3drinks/day - Recreational Drug Use Recreational Drug Use: Yes ED ROS GENERAL - Review of Systems Review Of Systems: ROS reveals no pertinent complaints other than HPI. ED EXAM, GENERAL - Physical Exam Exam: See Below Course - Vital Signs Last Recorded V/S: Last Vital Signs Temp 98.2 F 10/09/17 23:14 Pulse 107 H 10/09/17 23:14 Resp 18 10/09/17 23:14 BP 128/62 10/09/17 23:14 Pulse Ox 98 10/09/17 23:14 - Orders/Labs/Meds Orders: Active Orders 24 hr Category Date Time Status CRP, HIGH SENSITIVITY [REF] Stat Lab 10/09/17 00:11 Received Sodium Chloride 0.9% [Normal Saline] 1,000 ml Med 10/10/17 00:16 Active IV STAT Medication Orders Sodium Chloride (Normal Saline) 1,000 mls @ 999 mls/hr IV STAT ONE Stop: 10/10/17 01:16 Last Admin: 10/10/17 00:28 Dose: 999 mls/hr Labs: Laboratory Tests 10/09/17 10/09/17 10/09/17 Range/Units 00:11 00:11 23:20 WBC 10.23 (4.0-11.0) K/uL RBC 4.04 L (4.30-5.90) M/uL Hgb 12.2 (12.0-16.0) g/dL Hct 35.2 L (36.0-46.0) % MCV 87.1 (80.0-98.0) fL MCH 30.2 (27.0-32.0) pg MCHC 34.7 (31.0-37.0) g/dL RDW Std Deviation 41.1 (28.0-62.0) fl RDW Coeff of [place] 13 (11.0-15.0) % Plt Count 270 (150-400) K/uL MPV 9.60 (7.40-12.00) fL Neut % (Auto) 79.3 (48.0-80.0) % Lymph % (Auto) 13.8 L (16.0-40.0) % [place] % (Auto) 6.0 (0.0-15.0) % Eos % (Auto) 0.7 (0.0-7.0) % Baso % (Auto) 0.2 (0.0-1.5) % Neut # (Auto) 8.1 H (1.4-5.7) K/uL Lymph # (Auto) 1.4 (0.6-2.4) K/uL [place] # (Auto) 0.6 (0.0-0.8) K/uL Eos # (Auto) 0.1 (0.0-0.7) K/uL Baso # (Auto) 0.0 (0.0-0.1) K/uL Nucleated RBC % 0.0 /100WBC Nucleated RBCs # 0 K/uL Sodium 139 (136-146) mmol/L Potassium 3.6 (3.5-5.1) mmol/L Chloride 110 (98-110) mmol/L Carbon Dioxide 22 (21-31) mmol/L BUN 10 (6.0-23.0) mg/dL Creatinine 0.7 (0.6-1.5) mg/dL Est Cr Clr Drug Dosing 124.67 mL/min Estimated GFR (MDRD) > 60.0 ml/min Glucose 87 (60-110) mg/dL Calcium 9.4 (8.8-10.8) mg/dL Total Bilirubin 0.6 (0.1-1.5) mg/dL AST 11 (5-40) IU/L ALT 7 L (8-54) IU/L Alkaline Phosphatase 52 (40-150) Total Protein 6.8 (6.0-8.0) g/dL Albumin 4.3 (3.5-5.0) g/dL Globulin 2.5 (2.0-3.5) g/dL Albumin/Globulin Ratio 1.7 (1.3-2.8) Urine Color Urine Appearance Urine pH (5.0-8.0) Ur Specific [place] (1.001-1.035) Urine Protein (NEGATIVE) mg/dL Urine Glucose (UA) (NEGATIVE) mg/dL Urine Ketones (NEGATIVE) mg/dL Urine Occult Blood (NEGATIVE) Urine Nitrite (NEGATIVE) Urine Bilirubin (NEGATIVE) Urine Urobilinogen (<2.0) EU/dL Ur Leukocyte Esterase (NEGATIVE) Urine RBC (0-2/HPF) Urine WBC (0-5/HPF) Ur Epithelial Cells (NONE-FEW) Urine Bacteria (NEGATIVE) Urine HCG, Qual NEGATIVE (NEGATIVE) 10/09/17 Range/Units 23:20 WBC (4.0-11.0) K/uL RBC (4.30-5.90) M/uL Hgb (12.0-16.0) g/dL Hct (36.0-46.0) % MCV (80.0-98.0) fL MCH (27.0-32.0) pg MCHC (31.0-37.0) g/dL RDW Std Deviation (28.0-62.0) fl RDW Coeff of [place] (11.0-15.0) % Plt Count (150-400) K/uL MPV (7.40-12.00) fL Neut % (Auto) (48.0-80.0) % Lymph % (Auto) (16.0-40.0) % [place] % (Auto) (0.0-15.0) % Eos % (Auto) (0.0-7.0) % Baso % (Auto) (0.0-1.5) % Neut # (Auto) (1.4-5.7) K/uL Lymph # (Auto) (0.6-2.4) K/uL [place] # (Auto) (0.0-0.8) K/uL Eos # (Auto) (0.0-0.7) K/uL Baso # (Auto) (0.0-0.1) K/uL Nucleated RBC % /100WBC Nucleated RBCs # K/uL Sodium (136-146) mmol/L Potassium (3.5-5.1) mmol/L Chloride (98-110) mmol/L Carbon Dioxide (21-31) mmol/L BUN (6.0-23.0) mg/dL Creatinine (0.6-1.5) mg/dL Est Cr Clr Drug Dosing mL/min Estimated GFR (MDRD) ml/min Glucose (60-110) mg/dL Calcium (8.8-10.8) mg/dL Total Bilirubin (0.1-1.5) mg/dL AST (5-40) IU/L ALT (8-54) IU/L Alkaline Phosphatase (40-150) Total Protein (6.0-8.0) g/dL Albumin (3.5-5.0) g/dL Globulin (2.0-3.5) g/dL Albumin/Globulin Ratio (1.3-2.8) Urine Color YELLOW Urine Appearance CLEAR Urine pH 6.0 (5.0-8.0) Ur Specific [place] 1.020 (1.001-1.035) Urine Protein NEGATIVE (NEGATIVE) mg/dL Urine Glucose (UA) NEGATIVE (NEGATIVE) mg/dL Urine Ketones NEGATIVE (NEGATIVE) mg/dL Urine Occult Blood MODERATE (NEGATIVE) Urine Nitrite NEGATIVE (NEGATIVE) Urine Bilirubin NEGATIVE (NEGATIVE) Urine Urobilinogen 0.2 (<2.0) EU/dL Ur Leukocyte Esterase NEGATIVE (NEGATIVE) Urine RBC 0-2 (0-2/HPF) Urine WBC 0-1 (0-5/HPF) Ur Epithelial Cells FEW (NONE-FEW) Urine Bacteria RARE (NEGATIVE) Urine HCG, Qual (NEGATIVE) Meds: Medications Generic Name Dose Route Start Last Admin Trade Name Freq PRN Reason Stop Dose Admin Sodium Chloride 1,000 mls @ 999 mls/hr 10/10/17 00:16 10/10/17 00:28 Normal Saline IV 10/10/17 01:16 999 mls/hr STAT ONE Administration Discontinued Medications Generic Name Dose Route Start Last Admin Trade Name Freq PRN Reason Stop Dose Admin Ketorolac Tromethamine 30 mg 10/10/17 00:16 10/10/17 00:28 Toradol IVPUSH 10/10/17 00:17 30 mg ONETIME ONE Administration Ondansetron HCl 8 mg 10/10/17 00:16 10/10/17 00:28 Zofran IVPUSH 10/10/17 00:17 8 mg ONETIME ONE Administration Departure - Departure Time of Disposition: :03 Disposition: Home, Self-Care 01 Condition: Good Clinical Impression: 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, Abdominal pain - Discharge Information Referrals: PCP,None [Primary Care Provider] - Forms: ED Department Discharge Additional Instructions: Return if symptoms persist or worsen or new concerning symptoms develop Medications as directed Follow-up with gynecology: Number below for appropriate follow-up [facility] [address] [place] [id number] The following information is given to patients seen in the emergency department who are being discharged to home. This information is to outline your options for follow-up care. We provide all patients seen in our emergency department with a follow-up referral. The need for follow-up, as well as the timing and circumstances, are variable depending upon the specifics of your emergency department visit. If you don't have a primary care physician on staff, we will provide you with a referral. We always advise you to contact your personal physician following an emergency department visit to inform them of the circumstance of the visit and for follow-up with them and/or the need for any referrals to a consulting specialist. The emergency department will also refer you to a specialist when appropriate. This referral assures that you have the opportunity for follow-up care with a specialist. All of these measure are taken in an effort to provide you with optimal care, which includes your follow-up. Under all circumstances we always encourage you to contact your private physician who remains a resource for coordinating your care. When calling for follow-up care, please make the office aware that this follow-up is from your recent emergency room visit. If for any reason you are refused follow-up, please contact the [facility] emergency department at and asked to speak to the emergency department charge nurse. - My Orders Last 24 Hours: My Active Orders 10/09/17 00:11 CRP, HIGH SENSITIVITY [REF] Stat 10/10/17 00:16 Sodium Chloride 0.9% [Normal Saline] 1,000 ml IV STAT - Assessment/Plan Last 24 Hours: My Active Orders 10/09/17 00:11 CRP, HIGH SENSITIVITY [REF] Stat 10/10/17 00:16 Sodium Chloride 0.9% [Normal Saline] 1,000 ml IV STAT
[2017-10-10] MEDS ORDERED: Ondansetron 4 MG/2 ML SDV IVPUSH ONE (00:16)
[2017-10-10] MEDS ORDERED: Ketorolac 30 MG/ML SDV IVPUSH ONE (00:16)
[2017-10-10] MEDS ORDERED: Sodium Chloride 0.9% 1,000 ML IV ONE (00:16)
[2017-10-10 00:44] LABS: CHLORIDE,CL 110 mmol/L (98-110); SODIUM,NA 139 mmol/L (136-146)
[2017-10-10] MEDS ORDERED: traMADol 50 MG Tab PO ONE (01:12)
[2017-10-10 02:22] VITALS: BP 119/54
== END 2017-10-10 01:47 | disposition home or self-care (01) ==
LOC: MW.ED 22:27
DX: N80.9 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, unspecified (principal); Z88.8 Allergy status to other drugs, medicaments and biological substances; Z91.040 Latex allergy status
CPT/HCPCS: 36415; 80053; 81001; 81025; 85025; 86140; 96361; 96374; 96375; 99284; A9270; J1885; J2405; J7040; 99283

== ENCOUNTER 2017-11-07 20:01 | Emergency (ER) | payer SELFPAY ==
--- NOTE | 2017-11-07 20:13 | EDM.PDOC ---
ED HPI GENERAL MEDICAL PROBLEM - General Chief Complaint: Genitourinary Problem Stated Complaint: LOWER BACK PAIN Time Seen by Provider: 11/07/17 20:13 Source of Information: Reports: Patient - History of Present Illness INITIAL COMMENTS - FREE TEXT/NARRATIVE: HISTORY AND PHYSICAL: History of present illness: [Patient presents with frequency and dysuria over the last week no fever nausea vomiting chills sweats some mild flank pain left greater than right ] Review of systems: As per history of present illness and below otherwise all systems reviewed and negative. Past medical history: As per history of present illness and as reviewed below otherwise noncontributory. Surgical history: As per history of present illness and as reviewed below otherwise noncontributory. Social history: No reported history of drug or alcohol abuse. Family history: As per history of present illness and as reviewed below otherwise noncontributory. Physical exam: HEENT: Atraumatic, normocephalic, pupils reactive, negative for conjunctival pallor or scleral icterus, mucous membranes moist, throat clear, neck supple, nontender, trachea midline. Lungs: Clear to auscultation, breath sounds equal bilaterally, chest nontender. Heart: S1S2, regular, negative for clicks, rubs, or JVD. Abdomen: Soft, nondistended, nontender. Negative for masses or hepatosplenomegaly. Mild costovertebral tenderness on the left/morbid discomfort and tender. Pelvis: Stable nontender. Genitourinary: Deferred. Rectal: Deferred. Extremities: Atraumatic, negative for cords or calf pain. Neurovascular unremarkable. Neuro: Awake, alert, oriented. Cranial nerves II through XII unremarkable. Cerebellum unremarkable. Motor and sensory unremarkable throughout. Exam nonfocal. Diagnostics: [UA hCG ] Therapeutics: [Levaquin 500 mg by mouth now and daily #10 no refill Pyridium ] Impression: [UTI Mild clinical pyelonephritis] Definitive disposition and diagnosis as appropriate pending reevaluation and review of above. flank Pain Score (Numeric/FACES): 7 - Related Data Allergies Allergy/AdvReac Type Severity Reaction Status Date / Time latex Allergy Blisters Verified 11/07/17 20:19 Latex, Natural Rubber Allergy Blisters Verified 11/07/17 20:19 lorazepam [From Ativan] Allergy Seizure Verified 11/07/17 20:19 phenazopyridine Allergy Vomiting Verified 11/07/17 20:19 [From Pyridium] chloraprep Allergy Blisters Uncoded 11/07/17 20:19 Home Meds: Home Meds valACYclovir HCl [Valtrex] 500 mg PO TID 10/09/17 [History] Past Medical History - Past Health History Medical/Surgical History: Denies Medical/Surgical History HEENT History: Reports: None Cardiovascular History: Reports: Other (See Below) Other Cardiovascular History: Heart conditon but doesn't know the exact diagnosis Respiratory History: Reports: Asthma Gastrointestinal History: Reports: None Genitourinary History: Reports: None Other Genitourinary History: endometriosis 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 Other OB/BYN History: pt reports not being on control Musculoskeletal History: Reports: None Neurological History: Reports: None Psychiatric History: Reports: Anxiety, Depression Endocrine/Metabolic History: Reports: None Hematologic History: Reports: None Immunologic History: Reports: None Oncologic (Cancer) History: Reports: None Dermatologic History: Reports: None - Infectious Disease History Infectious Disease History: Reports: None - Past Surgical History Head Surgeries/Procedures: Reports: None GI Surgical History: Reports: Other (See Below) Other GI Surgeries/Procedures: Laparoscopy Social & Family History - Family History Family Medical History: Noncontributory - Tobacco Use Smoking Status *Q: Never Smoker Years of Tobacco use: 6 Packs/Tins Daily: 1 Used Tobacco, but Quit: No Second Hand Smoke Exposure: No - Caffeine Use Caffeine Use: Reports: None Caffeine Use Comment: 3drinks/day - Recreational Drug Use Recreational Drug Use: Yes ED ROS GENERAL - Review of Systems Review Of Systems: ROS reveals no pertinent complaints other than HPI. ED EXAM, GENERAL - Physical Exam Exam: See Below Course - Vital Signs Last Recorded V/S: Last Vital Signs Temp 98.6 F 11/07/17 20:19 Pulse 90 11/07/17 20:19 Resp 18 11/07/17 20:19 BP 120/70 11/07/17 20:19 Pulse Ox 98 11/07/17 20:19 - Orders/Labs/Meds Orders: Active Orders 24 hr Category Date Time Status HCG QUALITATIVE,URINE [URCHEM] Stat Lab 11/07/17 20:20 Received UA W/MICROSCOPIC [URIN] Stat Lab 11/07/17 20:23 Ordered Departure - Departure Time of Disposition: 20:33 Disposition: Home, Self-Care 01 Condition: Good Clinical Impression: UTI, Urinary tract infectious disease, Dysuria - Discharge Information Referrals: Thelma Colbert LIVESTOCK SLAUGHTERER [Primary Care Provider] - Forms: ED Department Discharge Additional Instructions: The following information is given to patients seen in the emergency department who are being discharged to home. This information is to outline your options for follow-up care. We provide all patients seen in our emergency department with a follow-up referral. The need for follow-up, as well as the timing and circumstances, are variable depending upon the specifics of your emergency department visit. If you don't have a primary care physician on staff, we will provide you with a referral. We always advise you to contact your personal physician following an emergency department visit to inform them of the circumstance of the visit and for follow-up with them and/or the need for any referrals to a consulting specialist. The emergency department will also refer you to a specialist when appropriate. This referral assures that you have the opportunity for follow-up care with a specialist. All of these measure are taken in an effort to provide you with optimal care, which includes your follow-up. Under all circumstances we always encourage you to contact your private physician who remains a resource for coordinating your care. When calling for follow-up care, please make the office aware that this follow-up is from your recent emergency room visit. If for any reason you are refused follow-up, please contact the [facility] emergency department at and asked to speak to the emergency department charge nurse. - My Orders Last 24 Hours: My Active Orders 11/07/17 20:20 HCG QUALITATIVE,URINE [URCHEM] Stat 11/07/17 20:23 UA W/MICROSCOPIC [URIN] Stat - Assessment/Plan Last 24 Hours: My Active Orders 11/07/17 20:20 HCG QUALITATIVE,URINE [URCHEM] Stat 11/07/17 20:23 UA W/MICROSCOPIC [URIN] Stat
[2017-11-07] MEDS ORDERED: Azithromycin 250 MG Tab PO STA (20:49)
[2017-11-07] MEDS ORDERED: cefTRIAXone 250 MG in Lidocaine 1% 1 ML IM ONE (20:50)
[2017-11-07] MEDS ORDERED: Ibuprofen 400 MG Tab PO ONE (20:56)
[2017-11-08 01:53] VITALS: BP 117/77
== END 2017-11-07 21:39 | disposition home or self-care (01) ==
LOC: MW.ED 20:01
DX: N39.0 Urinary tract infection, site not specified (principal); Z88.8 Allergy status to other drugs, medicaments and biological substances; Z91.040 Latex allergy status
CPT/HCPCS: 81001; 81025; 87086; 96372; 99283; A9270; J0696; 87491; 87591

== ENCOUNTER 2017-12-13 00:25 | Emergency (ER) | payer SELFPAY ==
[2017-12-13] MEDS ORDERED: Sodium Chloride 0.9% 10 ML Syringe FLUSH PRN (00:45)
[2017-12-13] MEDS ORDERED: Ketorolac 30 MG/ML SDV IVPUSH ONE (00:45)
[2017-12-13] MEDS ORDERED: Sodium Chloride 0.9% 2.5 ML Syringe FLUSH PRN (00:45)
[2017-12-13] MEDS ORDERED: Morphine 2 MG/ML Syringe IVPUSH ONE (00:45)
[2017-12-13] MEDS ORDERED: Ondansetron 4 MG/2 ML SDV IVPUSH ONE (00:45)
[2017-12-13] MEDS ORDERED: Sodium Chloride 0.9% 1,000 ML IV ONE (00:45)
--- NOTE | 2017-12-13 00:49 | EDM.PDOC ---
ED HPI GENERAL MEDICAL PROBLEM - General Chief Complaint: Abdominal Pain Stated Complaint: RIGHT SIDE ABDOMINAL PAIN Time Seen by Provider: 12/13/17 00:39 - History of Present Illness INITIAL COMMENTS - FREE TEXT/NARRATIVE: HISTORY AND PHYSICAL: History of present illness: The patient is a 22-year-old female who presents with right-sided abdominal pain which starts at her right mid back and radiates to the right mid and right lower abdomen that started after she woke up this morning. She says it felt cramping in character initially and now it is more squeezing in character and she had a bowel movement today which was hard but that is characteristic for her. She had no nausea and vomiting until just a couple of hours ago. She has been eating through the day although not much of an appetite and she has not had any urinary symptoms or vaginal complaints. The patient has a significant gynecologic history of endometriosis and has had 2 laparoscopies for it she's never had any open surgical procedures. She also says she has had an ovarian cyst in the past. Patient says that she gets irregular periods and she has been trying to get so she is unsure of that. She has no discrete midline back pain or upper flank pain. Patient took ibuprofen throughout the course of the day and the pain is worsened so she came for evaluation. She says this pain does not feel like her endometriosis and she has not had any trauma recently. The pain doesn't radiate to her legs. Patient is on any fever or upper respiratory symptoms. The patient admits she does not hydrate very well and mostly drinks caffeinated products. The patient also denies any hematuria or dysuria Review of systems: As per history of present illness and below otherwise all systems reviewed and negative. Past medical history: As per history of present illness and as reviewed below otherwise noncontributory. Surgical history: As per history of present illness and as reviewed below otherwise noncontributory. Social history: No reported history of drug or alcohol abuse. Family history: As per history of present illness and as reviewed below otherwise noncontributory. Physical exam: General: Well-developed well-nourished thin female who is nontoxic and vital signs have been reviewed by me. Patient moves easily in the ED. HEENT: Atraumatic, normocephalic, negative for conjunctival pallor or scleral icterus, mucous membranes moist, throat clear, neck supple, nontender, trachea midline. Lungs: Clear to auscultation, breath sounds equal bilaterally, chest nontender. Heart: S1S2, regular in rhythm no overt murmurs Abdomen: Soft, nondistended, bowel sounds are hypoactive. There is tenderness in the right mid and right lower abdominal areas which is mild in character without rebound or guarding. Negative for masses or hepatosplenomegaly. Negative for costovertebral tenderness. Pelvis: Stable nontender. Genitourinary: Deferred. Rectal: Deferred. Extremities: Atraumatic, negative for cords or calf pain. Neurovascular unremarkable. Neuro: Awake, alert, oriented. Cranial nerves II through XII unremarkable. Cerebellum unremarkable. Motor and sensory unremarkable throughout. Exam nonfocal. Diagnostics: CBC CMP amylase lipase UA UCG urine culture if indicated CT scan of the abdomen and pelvis Therapeutics: IV IV fluids morphine Toradol Zofran and Bentyl Patient is aware of all testing results and we have discussed that this possibly could be due to colonic colic or potentially her endometriosis but I cannot diagnose that here. She has followed in our clinic before and advised her to reconnect. I will give her Bentyl and some tramadol to use for pain and advised her on dietary changes and increasing hydration and fiber in her diet and [id number] MiraLAX. Impression: Right-sided abdominal pain, constipation, history of endometriosis, Definitive disposition and diagnosis as appropriate pending reevaluation and review of above. right flank/right mid abdominal Pain Score (Numeric/FACES): 6 - Related Data Allergies Allergy/AdvReac Type Severity Reaction Status Date / Time latex Allergy Blisters Verified 12/13/17 00:32 Latex, Natural Rubber Allergy Blisters Verified 12/13/17 00:32 lorazepam [From Ativan] Allergy Seizure Verified 12/13/17 00:32 phenazopyridine Allergy Vomiting Verified 12/13/17 00:32 [From Pyridium] chloraprep Allergy Blisters Uncoded 12/13/17 00:32 Home Meds: Home Meds valACYclovir HCl [Valtrex] 500 mg PO TID 10/09/17 [History] Past Medical History - Past Health History Medical/Surgical History: Denies Medical/Surgical History HEENT History: Reports: None Cardiovascular History: Reports: Other (See Below) Other Cardiovascular History: Heart conditon but doesn't know the exact diagnosis Respiratory History: Reports: Asthma Gastrointestinal History: Reports: None Genitourinary History: Reports: None, Other (See Below) Other Genitourinary History: endometriosis, painful bladder syndrom 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 NON MEDICAL History: Reports: 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 Other OB/BYN History: pt reports not being on control Musculoskeletal History: Reports: None Neurological History: Reports: None Psychiatric History: Reports: Anxiety, Depression Endocrine/Metabolic History: Reports: None Hematologic History: Reports: None Immunologic History: Reports: None Oncologic (Cancer) History: Reports: None Dermatologic History: Reports: None - Infectious Disease History Infectious Disease History: Reports: None - Past Surgical History Head Surgeries/Procedures: Reports: None GI Surgical History: Reports: Other (See Below) Other GI Surgeries/Procedures: Laparoscopy Social & Family History - Family History Family Medical History: Noncontributory - Tobacco Use Smoking Status *Q: Current Every Day Smoker Years of Tobacco use: 6 Packs/Tins Daily: 1 Used Tobacco, but Quit: No Second Hand Smoke Exposure: No - Caffeine Use Caffeine Use: Reports: None Caffeine Use Comment: 3drinks/day - Recreational Drug Use Recreational Drug Use: No ED ROS GENERAL - Review of Systems Review Of Systems: ROS reveals no pertinent complaints other than HPI. ED EXAM, GENERAL - Physical Exam Exam: See Below (see dictation) Course - Vital Signs Last Recorded V/S: Last Vital Signs Temp 36.8 C 12/13/17 00:32 Pulse 107 H 12/13/17 00:32 Resp 16 12/13/17 00:32 BP 131/75 12/13/17 00:32 Pulse Ox 98 12/13/17 00:32 - Orders/Labs/Meds Orders: Active Orders 24 hr Category Date Time Status Abdomen Pelvis w Cont [CT] Stat Exams 12/13/17 00:45 Taken Dicyclomine [Bentyl] Med 12/13/17 02:13 Once 20 mg PO ONETIME ONE Sodium Chloride 0.9% [Saline Flush] Med 12/13/17 00:45 Active 10 ml FLUSH ASDIRECTED PRN Sodium Chloride 0.9% [Saline Flush] Med 12/13/17 00:45 Active 2.5 ml FLUSH ASDIRECTED PRN Saline Lock Insert [OM.PC] Stat Oth 12/13/17 00:44 Ordered Medication Orders Dicyclomine HCl (Bentyl) 20 mg PO ONETIME ONE Stop: 12/13/17 02:14 Sodium Chloride (Saline Flush) 10 ml FLUSH ASDIRECTED PRN PRN Reason: Keep Vein Open Sodium Chloride (Saline Flush) 2.5 ml FLUSH ASDIRECTED PRN PRN Reason: Keep Vein Open Labs: Laboratory Tests 12/13/17 12/13/17 12/13/17 Range/Units 00:45 00:45 00:50 WBC 8.50 (4.0-11.0) K/uL RBC 4.24 L (4.30-5.90) M/uL Hgb 12.9 (12.0-16.0) g/dL Hct 37.0 (36.0-46.0) % MCV 87.3 (80.0-98.0) fL MCH 30.4 (27.0-32.0) pg MCHC 34.9 (31.0-37.0) g/dL RDW Std Deviation 42.5 (28.0-62.0) fl RDW Coeff of [place] 13 (11.0-15.0) % Plt Count 342 (150-400) K/uL MPV 9.20 (7.40-12.00) fL Neut % (Auto) 50.4 (48.0-80.0) % Lymph % (Auto) 40.9 H (16.0-40.0) % [place] % (Auto) 5.6 (0.0-15.0) % Eos % (Auto) 2.7 (0.0-7.0) % Baso % (Auto) 0.4 (0.0-1.5) % Neut # (Auto) 4.3 (1.4-5.7) K/uL Lymph # (Auto) 3.5 H (0.6-2.4) K/uL Dawson # (Auto) 0.5 (0.0-0.8) K/uL Eos # (Auto) 0.2 (0.0-0.7) K/uL Baso # (Auto) 0.0 (0.0-0.1) K/uL Nucleated RBC % 0.0 /100WBC Nucleated RBCs # 0 K/uL Sodium (136-145) mmol/L Potassium (3.5-5.1) mmol/L Chloride (98-107) mmol/L Carbon Dioxide (21.0-32.0) mmol/L BUN (7.0-18.0) mg/dL Creatinine (0.6-1.0) mg/dL Est Cr Clr Drug Dosing mL/min Estimated GFR (MDRD) ml/min Glucose (74-106) mg/dL Calcium (8.5-10.1) mg/dL Total Bilirubin (0.2-1.0) mg/dL AST (15-37) IU/L ALT (14-63) IU/L Alkaline Phosphatase (46-116) U/L Total Protein (6.4-8.2) g/dL Albumin (3.4-5.0) g/dL Globulin (2.0-3.5) g/dL Albumin/Globulin Ratio (1.3-2.8) Amylase (25-115) U/L Lipase (73-393) U/L Urine Color YELLOW Urine Appearance CLEAR Urine pH 8.0 (5.0-8.0) Ur Specific [place] 1.015 (1.001-1.035) Urine Protein NEGATIVE (NEGATIVE) mg/dL Urine Glucose (UA) NEGATIVE (NEGATIVE) mg/dL Urine Ketones NEGATIVE (NEGATIVE) mg/dL Urine Occult Blood NEGATIVE (NEGATIVE) Urine Nitrite NEGATIVE (NEGATIVE) Urine Bilirubin NEGATIVE (NEGATIVE) Urine Urobilinogen 0.2 (<2.0) EU/dL Ur Leukocyte Esterase NEGATIVE (NEGATIVE) Urine RBC 0-2 (0-2/HPF) Urine WBC 0-3 (0-5/HPF) Ur Epithelial Cells FEW (NONE-FEW) Amorphous Sediment MODERATE (NEGATIVE) Urine Bacteria FEW (NEGATIVE) Urine HCG, Qual NEGATIVE (NEGATIVE) 12/13/17 Range/Units 00:50 WBC (4.0-11.0) K/uL RBC (4.30-5.90) M/uL Hgb (12.0-16.0) g/dL Hct (36.0-46.0) % MCV (80.0-98.0) fL MCH (27.0-32.0) pg MCHC (31.0-37.0) g/dL RDW Std Deviation (28.0-62.0) fl RDW Coeff of [place] (11.0-15.0) % Plt Count (150-400) K/uL MPV (7.40-12.00) fL Neut % (Auto) (48.0-80.0) % Lymph % (Auto) (16.0-40.0) % Dawson % (Auto) (0.0-15.0) % Eos % (Auto) (0.0-7.0) % Baso % (Auto) (0.0-1.5) % Neut # (Auto) (1.4-5.7) K/uL Lymph # (Auto) (0.6-2.4) K/uL Dawson # (Auto) (0.0-0.8) K/uL Eos # (Auto) (0.0-0.7) K/uL Baso # (Auto) (0.0-0.1) K/uL Nucleated RBC % /100WBC Nucleated RBCs # K/uL Sodium 141 (136-145) mmol/L Potassium 3.4 L (3.5-5.1) mmol/L Chloride 106 (98-107) mmol/L Carbon Dioxide 24.9 (21.0-32.0) mmol/L BUN 12 (7.0-18.0) mg/dL Creatinine 0.8 (0.6-1.0) mg/dL Est Cr Clr Drug Dosing 109.08 mL/min Estimated GFR (MDRD) > 60.0 ml/min Glucose 118 H (74-106) mg/dL Calcium 9.3 (8.5-10.1) mg/dL Total Bilirubin 0.2 (0.2-1.0) mg/dL AST 12 L (15-37) IU/L ALT 14 (14-63) IU/L Alkaline Phosphatase 53 (46-116) U/L Total Protein 7.1 (6.4-8.2) g/dL Albumin 4.0 (3.4-5.0) g/dL Globulin 3.1 (2.0-3.5) g/dL Albumin/Globulin Ratio 1.3 (1.3-2.8) Amylase 35 (25-115) U/L Lipase 84 (73-393) U/L Urine Color Urine Appearance Urine pH (5.0-8.0) Ur Specific [place] (1.001-1.035) Urine Protein (NEGATIVE) mg/dL Urine Glucose (UA) (NEGATIVE) mg/dL Urine Ketones (NEGATIVE) mg/dL Urine Occult Blood (NEGATIVE) Urine Nitrite (NEGATIVE) Urine Bilirubin (NEGATIVE) Urine Urobilinogen (<2.0) EU/dL Ur Leukocyte Esterase (NEGATIVE) Urine RBC (0-2/HPF) Urine WBC (0-5/HPF) Ur Epithelial Cells (NONE-FEW) Amorphous Sediment (NEGATIVE) Urine Bacteria (NEGATIVE) Urine HCG, Qual (NEGATIVE) Meds: Medications Generic Name Dose Route Start Last Admin Trade Name Freq PRN Reason Stop Dose Admin Dicyclomine HCl 20 mg 12/13/17 02:13 Bentyl PO 12/13/17 02:14 ONETIME ONE Sodium Chloride 10 ml 12/13/17 00:45 Saline Flush FLUSH ASDIRECTED PRN Keep Vein Open Sodium Chloride 2.5 ml 12/13/17 00:45 Saline Flush FLUSH ASDIRECTED PRN Keep Vein Open Discontinued Medications Generic Name Dose Route Start Last Admin Trade Name Freq PRN Reason Stop Dose Admin Sodium Chloride 1,000 mls @ 999 mls/hr 12/13/17 00:45 12/13/17 00:50 Normal Saline IV 12/13/17 01:45 999 mls/hr STAT ONE Administration Iopamidol 100 ml 12/13/17 02:05 12/13/17 02:06 Isovue-370 (76%) IVPUSH 12/13/17 02:06 100 ml ONETIME STA Administration Ketorolac Tromethamine 30 mg 12/13/17 00:45 12/13/17 00:54 Toradol IVPUSH 12/13/17 00:46 30 mg ONETIME ONE Administration Morphine Sulfate 2 mg 12/13/17 00:45 12/13/17 00:55 Morphine IVPUSH 12/13/17 00:46 2 mg ONETIME ONE Administration Ondansetron HCl 4 mg 12/13/17 00:45 12/13/17 00:54 Zofran IVPUSH 12/13/17 00:46 4 mg ONETIME ONE Administration Departure - Departure Time of Disposition: 02:15 Disposition: Home, Self-Care 01 Condition: Good Clinical Impression: Abdominal pain Qualifiers: Abdominal location: right lower quadrant Qualified Code(s): R10.31 - Right lower quadrant pain - Discharge Information Referrals: Thelma Colbert TECHNICAL SALES SUPPORT SPECIALIST [Primary Care Provider] - Forms: ED Department Discharge Additional Instructions: The following information is given to patients seen in the emergency department who are being discharged to home. This information is to outline your options for follow-up care. We provide all patients seen in our emergency department with a follow-up referral. The need for follow-up, as well as the timing and circumstances, are variable depending upon the specifics of your emergency department visit. If you don't have a primary care physician on staff, we will provide you with a referral. We always advise you to contact your personal physician following an emergency department visit to inform them of the circumstance of the visit and for follow-up with them and/or the need for any referrals to a consulting specialist. The emergency department will also refer you to a specialist when appropriate. This referral assures that you have the opportunity for followup care with a specialist. All of these measure are taken in an effort to provide you with optimal care, which includes your followup. Under all circumstances we always encourage you to contact your private physician who remains a resource for coordinating your care. When calling for followup care, please make the office aware that this follow-up is from your recent emergency room visit. If for any reason you are refused follow-up, please contact the [facility] emergency department at and ask to speak to the emergency department charge nurse. [facility] Primary care- Internal Medicine and Family [address] [address] Please try to increase hydration and reduce caffeine intake, increase fiber in your diet and use [id number] stool softeners and fiber supplements. Please also start taking [id number] MiraLAX once a day to try to promote bowel cleansing. Please use the [facility]icyclom[facility] and [facility]. Please call and schedule a follow-up appointment in the clinic and return to ER as needed and as discussed - My Orders Last 24 Hours: My Active Orders 12/13/17 00:44 Saline Lock Insert [OM.PC] Stat 12/13/17 00:45 Abdomen Pelvis w Cont [CT] Stat Sodium Chloride 0.9% [Saline Flush] 10 ml FLUSH ASDIRECTED PRN Sodium Chloride 0.9% [Saline Flush] 2.5 ml FLUSH ASDIRECTED PRN 12/13/17 02:13 Dicyclomine [Bentyl] 20 mg PO ONETIME ONE - Assessment/Plan Last 24 Hours: My Active Orders 12/13/17 00:44 Saline Lock Insert [OM.PC] Stat 12/13/17 00:45 Abdomen Pelvis w Cont [CT] Stat Sodium Chloride 0.9% [Saline Flush] 10 ml FLUSH ASDIRECTED PRN Sodium Chloride 0.9% [Saline Flush] 2.5 ml FLUSH ASDIRECTED PRN 12/13/17 02:13 Dicyclomine [Bentyl] 20 mg PO ONETIME ONE
[2017-12-13 01:22] LABS: CHLORIDE,CL 106 mmol/L (98-107); SODIUM,NA 141 mmol/L (136-145)
[2017-12-13] MEDS ORDERED: Iopamidol 755 Mg/ML 100 ML Bottle IVPUSH STA (02:05)
[2017-12-13] MEDS ORDERED: Dicyclomine 10 MG Cap PO ONE (02:13)
[2017-12-13 02:37] VITALS: BP 117/60
--- NOTE | 2017-12-15 10:52 | CT ---
EXAM DATE: 12/13/17 PATIENT'S AGE: 22 Patient: VANESSA CLARKE Facility: [place], [place] Site . Site : 1995 Study: CT Abdomen/Pelvis WITH [id number]/[id number] 1:48:15 AM Ordering Physician: Zora Gama Final Report: INDICATION: R side abd pain TECHNIQUE: CT abdomen and pelvis acquired with IV contrast. COMPARISON: None FINDINGS: Lower chest: Unremarkable. Liver: Nonspecific hepatomegaly. Spleen: Unremarkable. Pancreas: Unremarkable. Gallbladder and bile ducts: Unremarkable. Kidneys: Multiple left renal cysts the largest measuring 1.7 cm. Adrenal glands: Unremarkable. GI tract: Moderate amount of stool. Appendix is normal. Vascular structures: Negative. No sign of aneurysm. Lymph nodes: Unremarkable. Miscellaneous: Unremarkable. No free air. Small amount of free fluid. Pelvic Organs: Unremarkable. Bones: Unremarkable for age. IMPRESSION: No acute abnormality of the abdomen and pelvis. Moderate amount of stool. Dictated by Joshua Alcala MD @ 12/13/2017 2:01:14 AM Dictated by: Joshua Alcala MD @ 12/13/2017 02:01:58 (Electronic Signature) Report Signed by Proxy. JOHN [facility]. [facility] CHILDREN[facility]S HOSPITALAnkit
== END 2017-12-13 02:35 | disposition home or self-care (01) ==
LOC: MW.ED 00:25
DX: R10.31 Right lower quadrant pain (principal); K59.00 Constipation, unspecified; J45.909 Unspecified asthma, uncomplicated; F41.9 Anxiety disorder, unspecified; F17.210 Nicotine dependence, cigarettes, uncomplicated; Z87.42 Personal history of other diseases of the female genital tract; Z91.040 Latex allergy status; Z88.8 Allergy status to other drugs, medicaments and biological substances; Z79.899 Other long term (current) drug therapy
CPT/HCPCS: 36415; 74177; 80053; 81001; 81025; 82150; 83690; 85025; 96361; 96374; 96375; 99284; A9270; J1885; J2270; J2405; J7040; Q9967

== ENCOUNTER 2017-12-22 01:59 | Emergency (ER) | payer SELFPAY ==
--- NOTE | 2017-12-22 02:36 | EDM.PDOC ---
ED HPI GENERAL MEDICAL PROBLEM - General Chief Complaint: General Stated Complaint: MOUTH PAIN Time Seen by Provider: 12/22/17 02:35 Source of Information: Reports: Patient - History of Present Illness INITIAL COMMENTS - FREE TEXT/NARRATIVE: HISTORY AND PHYSICAL: History of present illness: [Patient presents with pain left upper jawline, she had a temporary crown placed last July she is not had follow-up with dentist. She did call and leave voicemail today expecting an appointment tomorrow she presents as such with 7 out of 10 pain left upper jawline she appreciates some swelling however I do not visualize any swelling she is tender along the upper jawline. No fever nausea vomiting chills sweats ] Review of systems: As per history of present illness and below otherwise all systems reviewed and negative. Past medical history: As per history of present illness and as reviewed below otherwise noncontributory. Surgical history: As per history of present illness and as reviewed below otherwise noncontributory. Social history: No reported history of drug or alcohol abuse. Family history: As per history of present illness and as reviewed below otherwise noncontributory. Physical exam: HEENT: Atraumatic, normocephalic, pupils reactive, negative for conjunctival pallor or scleral icterus, mucous membranes moist, throat clear, neck supple, nontender, trachea midline. [place] noted left upper temporary tender with palpation Lungs: Clear to auscultation, breath sounds equal bilaterally, chest nontender. Heart: S1S2, regular, negative for clicks, rubs, or JVD. Abdomen: Soft, nondistended, nontender. Negative for masses or hepatosplenomegaly. Negative for costovertebral tenderness. Pelvis: Stable nontender. Genitourinary: Deferred. Rectal: Deferred. Extremities: Atraumatic, negative for cords or calf pain. Neurovascular unremarkable. Neuro: Awake, alert, oriented. Cranial nerves II through XII unremarkable. Cerebellum unremarkable. Motor and sensory unremarkable throughout. Exam nonfocal. Diagnostics: [Clinical ] Therapeutics: [Toradol 60 IM Amoxicillin 875 by mouth twice a day #20 no refill Toradol 10 mg by mouth 3 times a day #15 no refill ] Impression: [Dental pain] Definitive disposition and diagnosis as appropriate pending reevaluation and review of above. Treatments SEW OUT OPERATOR: Reports: NSAIDS, Other (see below) Other Treatments SEW OUT OPERATOR: oragel Left Face Pain Score (Numeric/FACES): 10 - Related Data Allergies Allergy/AdvReac Type Severity Reaction Status Date / Time latex Allergy Blisters Verified 12/13/17 00:32 Latex, Natural Rubber Allergy Blisters Verified 12/13/17 00:32 lorazepam [From Ativan] Allergy Seizure Verified 12/13/17 00:32 phenazopyridine Allergy Vomiting Verified 12/13/17 00:32 [From Pyridium] chloraprep Allergy Blisters Uncoded 12/13/17 00:32 Home Meds: Home Meds valACYclovir HCl [Valtrex] 500 mg PO TID PRN 10/09/17 [History] Vit W-Ca,Fe,FA(<1 mg) [ Vitamins] PO DAILY 12/22/17 [History] Past Medical History - Past Health History Medical/Surgical History: Denies Medical/Surgical History HEENT History: Reports: None Cardiovascular History: Reports: Other (See Below) Other Cardiovascular History: Heart conditon but doesn't know the exact diagnosis Respiratory History: Reports: Asthma Gastrointestinal History: Reports: None Genitourinary History: Reports: None, Other (See Below) Other Genitourinary History: endometriosis, painful bladder syndrom, HSV 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 Other OB/BYN History: pt reports not being on control Musculoskeletal History: Reports: None Neurological History: Reports: None Psychiatric History: Reports: Anxiety, Depression Endocrine/Metabolic History: Reports: None Hematologic History: Reports: None Immunologic History: Reports: None Oncologic (Cancer) History: Reports: None Dermatologic History: Reports: None - Infectious Disease History Infectious Disease History: Reports: Herpes - Past Surgical History Head Surgeries/Procedures: Reports: None GI Surgical History: Reports: Other (See Below) Other GI Surgeries/Procedures: Laparoscopy Other Female Surgeries/Procedures: pt states hshe has home confirmed , LMP Oct 30. Pt states she has apt with obgyn . Social & Family History - Family History Family Medical History: Noncontributory - Tobacco Use Smoking Status *Q: Current Every Day Smoker Years of Tobacco use: 6 Packs/Tins Daily: 1 Used Tobacco, but Quit: No Second Hand Smoke Exposure: No - Caffeine Use Caffeine Use: Reports: None Caffeine Use Comment: 3drinks/day - Recreational Drug Use Recreational Drug Use: No ED ROS GENERAL - Review of Systems Review Of Systems: ROS reveals no pertinent complaints other than HPI. ED EXAM, GENERAL - Physical Exam Exam: See Below Course - Vital Signs Last Recorded V/S: Last Vital Signs Temp 97.8 F 12/22/17 02:09 Pulse 99 12/22/17 02:09 Resp 16 12/22/17 02:09 BP 131/73 12/22/17 02:09 Pulse Ox 100 12/22/17 02:09 Departure - Departure Time of Disposition: 02:47 Disposition: Home, Self-Care 01 Condition: Good Clinical Impression: Pain, dental - Discharge Information Referrals: Thelma Colbert PACS ADMINISTRATOR [Primary Care Provider] - Forms: ED Department Discharge Additional Instructions: The following information is given to patients seen in the emergency department who are being discharged to home. This information is to outline your options for follow-up care. We provide all patients seen in our emergency department with a follow-up referral. The need for follow-up, as well as the timing and circumstances, are variable depending upon the specifics of your emergency department visit. If you don't have a primary care physician on staff, we will provide you with a referral. We always advise you to contact your personal physician following an emergency department visit to inform them of the circumstance of the visit and for follow-up with them and/or the need for any referrals to a consulting specialist. The emergency department will also refer you to a specialist when appropriate. This referral assures that you have the opportunity for follow-up care with a specialist. All of these measure are taken in an effort to provide you with optimal care, which includes your follow-up. Under all circumstances we always encourage you to contact your private physician who remains a resource for coordinating your care. When calling for follow-up care, please make the office aware that this follow-up is from your recent emergency room visit. If for any reason you are refused follow-up, please contact the [facility] emergency department at and asked to speak to the emergency department charge nurse.
[2017-12-22] MEDS ORDERED: Ketorolac 60 MG/2 ML SDV IM ONE (02:48)
[2017-12-22] MEDS ORDERED: Amoxicillin 500 MG Cap PO ONE (02:48)
[2017-12-22 04:49] VITALS: BP 125/53
== END 2017-12-22 03:30 | disposition home or self-care (01) ==
LOC: MW.ED 01:59
DX: K08.89 Other specified disorders of teeth and supporting structures (principal); F17.210 Nicotine dependence, cigarettes, uncomplicated; Z91.040 Latex allergy status; Z88.8 Allergy status to other drugs, medicaments and biological substances
CPT/HCPCS: 96372; 99282; A9270; J1885

== ENCOUNTER 2018-02-06 17:36 | Emergency (ER) | payer OTHER ==
--- NOTE | 2018-02-06 17:51 | EDM.PDOC ---
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 Review of systems: As per history of present illness and below otherwise all systems reviewed and negative. Past medical history: As per history of present illness and as reviewed below otherwise noncontributory. Surgical history: As per history of present illness and as reviewed below otherwise noncontributory. Social history: No reported history of drug or alcohol abuse. Family history: As per history of present illness and as reviewed below otherwise noncontributory. Physical exam: HEENT: Atraumatic, normocephalic, pupils reactive, no obvious corneal yousif abrasions foreign-body very minimal injection of the conjunctiva left greater than right visual acuity grossly normal negative for conjunctival pallor or scleral icterus, mucous membranes moist, throat clear, neck supple, nontender, trachea midline. Lungs: Clear to auscultation, breath sounds equal bilaterally, chest nontender. Heart: S1S2, regular, negative for clicks, rubs, or JVD. Abdomen: Soft, nondistended, nontender. Negative for masses or hepatosplenomegaly. Negative for costovertebral tenderness. Pelvis: Stable nontender. Genitourinary: Deferred. Rectal: Deferred. Extremities: Atraumatic, negative for cords or calf pain. Neurovascular unremarkable. Neuro: Awake, alert, oriented. Cranial nerves II through XII unremarkable. Cerebellum unremarkable. Motor and sensory unremarkable throughout. Exam nonfocal. Diagnostics: None Therapeutics: Ocular anesthesia followed by Austen lens with 1 L saline each eye irrigation. Impression: #1 noxious exposure with minor chemical conjunctivitis Definitive disposition and diagnosis as appropriate pending reevaluation and review of above. Bilateral Eye Pain Score (Numeric/FACES): 3 - Related Data Allergies Allergy/AdvReac Type Severity Reaction Status Date / Time latex Allergy Blisters Verified 02/06/18 18:01 Latex, Natural Rubber Allergy Blisters Verified 02/06/18 18:01 lorazepam [From Ativan] Allergy Seizure Verified 02/06/18 18:01 phenazopyridine Allergy Vomiting Verified 02/06/18 18:01 [From Pyridium] chloraprep Allergy Blisters Uncoded 02/06/18 18:01 Home Meds: Home Meds valACYclovir HCl [Valtrex] 500 mg PO DAILY PRN 10/09/17 [History] Vit W-Ca,Fe,FA(<1 mg) [ Vitamins] 1 tab PO DAILY 12/22/17 [ History] Past Medical History - Past Health History Medical/Surgical History: Denies Medical/Surgical History HEENT History: Reports: None Cardiovascular History: Reports: Other (See Below) Other Cardiovascular History: Heart conditon but doesn't know the exact diagnosis Respiratory History: Reports: Asthma Gastrointestinal History: Reports: None Genitourinary History: Reports: None, Other (See Below) Other Genitourinary History: endometriosis, painful bladder syndrom, HSV 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 Other OB/BYN History: pt reports not being on control Musculoskeletal History: Reports: None Neurological History: Reports: None Psychiatric History: Reports: Anxiety, Depression Endocrine/Metabolic History: Reports: None Hematologic History: Reports: None Immunologic History: Reports: None Oncologic (Cancer) History: Reports: None Dermatologic History: Reports: None - Infectious Disease History Infectious Disease History: Reports: Herpes - Past Surgical History Head Surgeries/Procedures: Reports: None GI Surgical History: Reports: Other (See Below) Other GI Surgeries/Procedures: Laparoscopy Other Female Surgeries/Procedures: pt states hshe has home confirmed , LMP Oct 30. Pt states she has apt with obgyn . Social & Family History - Family History Family Medical History: Noncontributory - Tobacco Use Smoking Status *Q: Current Every Day Smoker Years of Tobacco use: 6 Packs/Tins Daily: 1 Used Tobacco, but Quit: No Second Hand Smoke Exposure: No - Caffeine Use Caffeine Use: Reports: None Caffeine Use Comment: 3drinks/day - Recreational Drug Use Recreational Drug Use: No ED ROS GENERAL - Review of Systems Review Of Systems: ROS reveals no pertinent complaints other than HPI. ED EXAM GENERAL W FULL EYE - Physical Exam Exam: See Below (See dictation) Course - Vital Signs Text/Narrative:: I discussed case with ophthalmology who agrees with disposition home natural tears 4 times a day he requested I give patient his cell number which is [phone] and that she follows up with him on Friday at 8 AM. BPH status post irrigation pending case endorsed to Dr. Davidson who will reevaluate disposition accordingly as discussed Last Recorded V/S: Last Vital Signs Temp 98.7 F 02/06/18 17:44 Pulse 130 H 02/06/18 17:44 Resp 20 02/06/18 17:44 BP 126/79 02/06/18 17:44 Pulse Ox 96 02/06/18 17:44 - Orders/Labs/Meds Orders: Active Orders 24 hr Category Date Time Status Proparacaine [Proparacaine 0.5% Ophth Soln] Med 02/06/18 17:53 Active 2 ml EYEBOTH STAT Medication Orders Proparacaine HCl (Proparacaine 0.5% Ophth Soln) 2 ml EYEBOTH STAT LILIANA Last Admin: 02/06/18 17:58 Dose: 2 drop Meds: Medications Generic Name Dose Route Start Last Admin Trade Name Freq PRN Reason Stop Dose Admin Proparacaine HCl 2 ml 02/06/18 17:53 02/06/18 17:58 Proparacaine 0.5% Ophth Soln EYEBOTH 2 drop STAT LILIANA Administration Departure - Departure Disposition: Home, Self-Care 01 Clinical Impression: Conjunctivitis - Discharge Information Referrals: PCP,None [Primary Care Provider] - Forms: ED Department Discharge Additional Instructions: Artificial tears 4 times daily No contact lens usage Follow-up with ophthalmology on Friday at [facility] 8 AM Return to emergency room if symptoms persist or worsen or you may call the supply chain generalist at [phone] between and Friday as needed [address] [address] The following information is given to patients seen in the emergency department who are being discharged to home. This information is to outline your options for follow-up care. We provide all patients seen in our emergency department with a follow-up referral. The need for follow-up, as well as the timing and circumstances, are variable depending upon the specifics of your emergency department visit. If you don't have a primary care physician on staff, we will provide you with a referral. We always advise you to contact your personal physician following an emergency department visit to inform them of the circumstance of the visit and for follow-up with them and/or the need for any referrals to a consulting specialist. The emergency department will also refer you to a specialist when appropriate. This referral assures that you have the opportunity for follow-up care with a specialist. All of these measure are taken in an effort to provide you with optimal care, which includes your follow-up. Under all circumstances we always encourage you to contact your private physician who remains a resource for coordinating your care. When calling for follow-up care, please make the office aware that this follow-up is from your recent emergency room visit. If for any reason you are refused follow-up, please contact the [facility] emergency department at and asked to speak to the emergency department charge nurse. <Phillip Arce - Last Filed: 02/06/18 19:17> ED HPI GENERAL MEDICAL PROBLEM - History of Present Illness INITIAL COMMENTS - FREE TEXT/NARRATIVE: Have seen and evaluated the patient and agree with the above HEENT atraumatic normocephalic pupils reactive no foreign body or obvious chemical yousif, acuity as above pH is 7.4 post treatment above Chest clear CV regular Abdomen benign Extremities four-inch motion strength 5 out of 5 no edema WINDOW CUTTER alert nonfocal Diagnostics: PH 7.4 Therapeutics Austen lens 1 L normal saline each eye Dr. Rosado was consulted, ophthalmology on-call via Dr. Jin, recommendation for artificial tears 4 times a day and follow-up Friday Recommend no contact lens use Follow-up with Dr. rosado Friday, she may call his cell phone or return to ER if problems develop in the interim Impression: Chemical conjunctivitis, post noxious exposure Departure - Departure Time of Disposition: 19:15 Condition: Good
[2018-02-06] MEDS ORDERED: Proparacaine 0.5% Ophth Soln 15 ML Bottle EYEBOTH SCH (17:53)
[2018-02-06 19:43] VITALS: BP 124/67
== END 2018-02-06 19:45 | disposition home or self-care (01) ==
LOC: MW.ED 17:36
DX: T65.91XA Toxic effect of unspecified substance, accidental (unintentional), initial encounter (principal); H10.213 Acute toxic conjunctivitis, bilateral; Z91.040 Latex allergy status; Z88.8 Allergy status to other drugs, medicaments and biological substances; Z79.899 Other long term (current) drug therapy; F17.210 Nicotine dependence, cigarettes, uncomplicated; Y99.0 Civilian activity done for income or pay
CPT/HCPCS: 99283

== ENCOUNTER 2018-03-14 21:58 | Emergency (ER) | payer SELFPAY ==
--- NOTE | 2018-03-14 22:14 | EDM.PDOC ---
ED HPI GENERAL MEDICAL PROBLEM - General Stated Complaint: ABDOMINAL PAIN Time Seen by Provider: 03/14/18 22:10 - History of Present Illness INITIAL COMMENTS - FREE TEXT/NARRATIVE: HISTORY AND PHYSICAL: History of present illness: Patient's 22-year-old female with history of chronic intermittent abdominal pain secondary to endometriosis she's been seen by us in the past she had trouble securing follow-up due to insurance reasons and is here today with concern of analgesia she denies fever chills nausea states she had 2 negative home tests at home and has no concern of she deferred any diagnostics. Review of systems: As per history of present illness and below otherwise all systems reviewed and negative. Past medical history: As per history of present illness and as reviewed below otherwise noncontributory. Surgical history: As per history of present illness and as reviewed below otherwise noncontributory. Social history: No reported history of drug or alcohol abuse. Family history: As per history of present illness and as reviewed below otherwise noncontributory. Physical exam: HEENT: Atraumatic, normocephalic, pupils reactive, negative for conjunctival pallor or scleral icterus, mucous membranes moist, throat clear, neck supple, nontender, trachea midline. Lungs: Clear to auscultation, breath sounds equal bilaterally, chest nontender. Heart: S1S2, regular, negative for clicks, rubs, or JVD. Abdomen: Soft, nondistended, no localized tenderness no rebound no guarding Negative for masses or hepatosplenomegaly. Negative for costovertebral tenderness. Pelvis: Stable nontender. Genitourinary: Deferred. Rectal: Deferred. Extremities: Atraumatic, negative for cords or calf pain. Neurovascular unremarkable. Neuro: Awake, alert, oriented. Cranial nerves II through XII unremarkable. Cerebellum unremarkable. Motor and sensory unremarkable throughout. Exam nonfocal. Diagnostics: Deferred by patient Therapeutics: None Impression: #1 chronic intermittent abdominal pain #2 history of endometriosis Definitive disposition and diagnosis as appropriate pending reevaluation and review of above. - Related Data Allergies Allergy/AdvReac Type Severity Reaction Status Date / Time latex Allergy Blisters Verified 02/06/18 18:01 Latex, Natural Rubber Allergy Blisters Verified 02/06/18 18:01 lorazepam [From Ativan] Allergy Seizure Verified 02/06/18 18:01 phenazopyridine Allergy Vomiting Verified 02/06/18 18:01 [From Pyridium] chloraprep Allergy Blisters Uncoded 02/06/18 18:01 Home Meds: Home Meds valACYclovir HCl [Valtrex] 500 mg PO DAILY PRN 10/09/17 [History] Vit W-Ca,Fe,FA(<1 mg) [ Vitamins] 1 tab PO DAILY 12/22/17 [ History] Past Medical History - Past Health History Medical/Surgical History: Denies Medical/Surgical History HEENT History: Reports: None Cardiovascular History: Reports: Other (See Below) Other Cardiovascular History: Heart conditon but doesn't know the exact diagnosis Respiratory History: Reports: Asthma Gastrointestinal History: Reports: None Genitourinary History: Reports: None, Other (See Below) Other Genitourinary History: endometriosis, painful bladder syndrom, HSV 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 Other OB/BYN History: pt reports not being on control Musculoskeletal History: Reports: None Neurological History: Reports: None Psychiatric History: Reports: Anxiety, Depression Endocrine/Metabolic History: Reports: None Hematologic History: Reports: None Immunologic History: Reports: None Oncologic (Cancer) History: Reports: None Dermatologic History: Reports: None - Infectious Disease History Infectious Disease History: Reports: Herpes - Past Surgical History Head Surgeries/Procedures: Reports: None GI Surgical History: Reports: Other (See Below) Other GI Surgeries/Procedures: Laparoscopy Other Female Surgeries/Procedures: pt states hshe has home confirmed , LMP Oct 30. Pt states she has apt with obgyn . Social & Family History - Family History Family Medical History: Noncontributory - Caffeine Use Caffeine Use: Reports: None Caffeine Use Comment: 3drinks/day ED ROS GENERAL - Review of Systems Review Of Systems: ROS reveals no pertinent complaints other than HPI. ED EXAM, GENERAL - Physical Exam Exam: See Below (The dictation) Departure - Departure Time of Disposition: 22:12 Disposition: Home, Self-Care 01 Condition: Good Clinical Impression: Chronic abdominal pain, 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 - Discharge Information Referrals: Thelma Colbert BED MANAGER [Primary Care Provider] - Additional Instructions: The following information is given to patients seen in the emergency department who are being discharged to home. This information is to outline your options for follow-up care. We provide all patients seen in our emergency department with a follow-up referral. The need for follow-up, as well as the timing and circumstances, are variable depending upon the specifics of your emergency department visit. If you don't have a primary care physician on staff, we will provide you with a referral. We always advise you to contact your personal physician following an emergency department visit to inform them of the circumstance of the visit and for follow-up with them and/or the need for any referrals to a consulting specialist. The emergency department will also refer you to a specialist when appropriate. This referral assures that you have the opportunity for followup care with a specialist. All of these measure are taken in an effort to provide you with optimal care, which includes your followup. Under all circumstances we always encourage you to contact your private physician who remains a resource for coordinating your care. When calling for followup care, please make the office aware that this follow-up is from your recent emergency room visit. If for any reason you are refused follow-up, please contact the [facility] emergency department at and asked to speak to the emergency department charge nurse. Follow-up primary medical doctor/RESIDENT CARE AIDE he has discussed Ultram as prescribed return as needed as discussed
[2018-03-14 22:48] VITALS: BP 134/59
== END 2018-03-14 22:30 | disposition home or self-care (01) ==
LOC: MW.ED 21:58
DX: N80.9 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, unspecified (principal); Z91.040 Latex allergy status; Z88.8 Allergy status to other drugs, medicaments and biological substances; Z79.899 Other long term (current) drug therapy
CPT/HCPCS: 99282; 99283

== ENCOUNTER 2018-04-06 02:09 | Emergency (ER) | payer SELFPAY ==
--- NOTE | 2018-04-06 02:49 | EDM.PDOC ---
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 Patient states that she took a test that was positive and today began having some crampy abdominal pain. Last menstrual period she believes was on March 13 or . Making her 3 weeks and 3 days. Patient has had 3 previous miscarriages so she is currently A3. She denies any vaginal bleeding or discharge. No history of STD. Denies any pain with urination. Does have a history of endometriosis. Has had some nausea without vomiting. Denies any current chest pain, palpitations, shortness of breath, syncopal episodes, focal neurologic deficits. Review of systems: As per history of present illness and below otherwise all systems reviewed and negative. Past medical history: As per history of present illness and as reviewed below otherwise noncontributory. Surgical history: As per history of present illness and as reviewed below otherwise noncontributory. Social history: No reported history of drug or alcohol abuse. Family history: As per history of present illness and as reviewed below otherwise noncontributory. Physical exam: HEENT: Atraumatic, normocephalic, pupils reactive, negative for conjunctival pallor or scleral icterus, mucous membranes moist, throat clear, neck supple, nontender, trachea midline. Lungs: Clear to auscultation, breath sounds equal bilaterally, chest nontender. Heart: S1S2, regular, negative for clicks, rubs, or JVD. Abdomen: Soft, nondistended, nontender. Negative for masses or hepatosplenomegaly. Negative for costovertebral tenderness. Pelvis: Stable nontender. Genitourinary: Deferred. Rectal: Deferred. Extremities: Atraumatic, negative for cords or calf pain. Neurovascular unremarkable. Neuro: Awake, alert, oriented. Cranial nerves II through XII unremarkable. Cerebellum unremarkable. Motor and sensory unremarkable throughout. Exam nonfocal. Diagnostics: UA/UC, urine qual/quant Therapeutics: [] Impression: Abdominal cramps False positive home Plan: HCG Quant and Qual were negative and patient most likely had a false positive on her home test. This was explained to the patient and she was instructed to follow-up with her PCP Thelma Colbert. She was also instructed to return to the ER if she had any new or worsening symptoms. Abdomen Pain Score (Numeric/FACES): 4 - Related Data Allergies Allergy/AdvReac Type Severity Reaction Status Date / Time latex Allergy Blisters Verified 04/06/18 02:23 Latex, Natural Rubber Allergy Blisters Verified 04/06/18 02:23 lorazepam [From Ativan] Allergy Seizure Verified 04/06/18 02:23 phenazopyridine Allergy Vomiting Verified 04/06/18 02:23 [From Pyridium] chloraprep Allergy Blisters Uncoded 04/06/18 02:23 Home Meds: Home Meds Vit W-Ca,Fe,FA(<1 mg) [ Vitamins] 1 tab PO DAILY 12/22/17 [ History] Past Medical History - Past Health History Medical/Surgical History: Denies Medical/Surgical History HEENT History: Reports: None Cardiovascular History: Reports: Other (See Below) Other Cardiovascular History: Heart conditon but doesn't know the exact diagnosis Respiratory History: Reports: Asthma Gastrointestinal History: Reports: None Genitourinary History: Reports: None, Other (See Below) Other Genitourinary History: endometriosis, painful bladder syndrom, HSV 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: Reports: 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 Other 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: pt reports not being on control Musculoskeletal History: Reports: None Neurological History: Reports: None Psychiatric History: Reports: Anxiety, Depression Endocrine/Metabolic History: Reports: None Hematologic History: Reports: None Immunologic History: Reports: None Oncologic (Cancer) History: Reports: None Dermatologic History: Reports: None - Infectious Disease History Infectious Disease History: Reports: None - Past Surgical History Head Surgeries/Procedures: Reports: None GI Surgical History: Reports: Other (See Below) Other GI Surgeries/Procedures: Laparoscopy Social & Family History - Family History Family Medical History: Noncontributory - Tobacco Use Smoking Status *Q: Current Every Day Smoker Years of Tobacco use: 6 Packs/Tins Daily: 1 - Caffeine Use Caffeine Use: Reports: Energy Drinks, Soda Caffeine Use Comment: 3drinks/day - Recreational Drug Use Recreational Drug Use: No ED ROS GENERAL - Review of Systems Review Of Systems: ROS reveals no pertinent complaints other than HPI. ED EXAM, GENERAL - Physical Exam Exam: See Below Course - Vital Signs Last Recorded V/S: Last Vital Signs Temp 98.1 F 04/06/18 02:24 Pulse 110 H 04/06/18 02:24 Resp 18 04/06/18 02:24 BP 131/76 04/06/18 02:24 Pulse Ox 98 04/06/18 02:24 - Orders/Labs/Meds Orders: Active Orders 24 hr Category Date Time Status CULTURE URINE [RM] Stat Lab 04/06/18 03:01 Ordered HCG QUALITATIVE,URINE [URCHEM] Stat Lab 04/06/18 03:01 Ordered UA W/MICROSCOPIC [URIN] Stat Lab 04/06/18 03:01 Ordered Labs: Laboratory Tests 04/06/18 04/06/18 04/06/18 Range/Units 03:01 03:01 03:01 HCG, Quant < 1.0 mIU/mL Urine Color YELLOW Urine Appearance CLEAR Urine pH 7.0 (5.0-8.0) Ur Specific Nichols 1.015 (1.001-1.035) Urine Protein NEGATIVE (NEGATIVE) mg/dL Urine Glucose (UA) NEGATIVE (NEGATIVE) mg/dL Urine Ketones NEGATIVE (NEGATIVE) mg/dL Urine Occult Blood NEGATIVE (NEGATIVE) Urine Nitrite NEGATIVE (NEGATIVE) Urine Bilirubin NEGATIVE (NEGATIVE) Urine Urobilinogen 0.2 (<2.0) EU/dL Ur Leukocyte Esterase NEGATIVE (NEGATIVE) Urine RBC 0-2 (0-2/HPF) Urine WBC 0-2 (0-5/HPF) Ur Epithelial Cells FEW (NONE-FEW) Urine Bacteria FEW (NEGATIVE) Urine HCG, Qual NEGATIVE (NEGATIVE) Departure - Departure Time of Disposition: 04:38 Disposition: Home, Self-Care 01 Condition: Good Clinical Impression: Abdominal bloating with cramps - Discharge Information Referrals: PCP,None [Primary Care Provider] - Forms: ED Department Discharge Additional Instructions: My general discharge The following information is given to patients seen in the emergency department who are being discharged to home. This information is to outline your options for follow-up care. We provide all patients seen in our emergency department with a follow-up referral. The need for follow-up, as well as the timing and circumstances, are variable depending upon the specifics of your emergency department visit. If you don't have a primary care physician on staff, we will provide you with a referral. We always advise you to contact your personal physician following an emergency department visit to inform them of the circumstance of the visit and for follow-up with them and/or the need for any referrals to a consulting specialist. The emergency department will also refer you to a specialist when appropriate. This referral assures that you have the opportunity for follow-up care with a specialist. All of these measure are taken in an effort to provide you with optimal care, which includes your follow-up. Under all circumstances we always encourage you to contact your private physician who remains a resource for coordinating your care. When calling for follow-up care, please make the office aware that this follow-up is from your recent emergency room visit. If for any reason you are refused follow-up, please contact the [facility] Emergency Department at and asked to speak to the emergency department charge nurse. [facility] - [facility] [address] [place] [id number] Follow-up with Thelma as soon as possible. Be sure to tell them that he was in the emergency department and they would like you to be followed up with. Return to emergency department if any new or worsening symptoms. - My Orders Last 24 Hours: My Active Orders 04/06/18 03:01 CULTURE URINE [RM] Stat HCG QUALITATIVE,URINE [URCHEM] Stat UA W/MICROSCOPIC [URIN] Stat - Assessment/Plan Last 24 Hours: My Active Orders 04/06/18 03:01 CULTURE URINE [RM] Stat HCG QUALITATIVE,URINE [URCHEM] Stat UA W/MICROSCOPIC [URIN] Stat
[2018-04-06 05:17] VITALS: BP 118/52
== END 2018-04-06 04:44 | disposition home or self-care (01) ==
LOC: MW.ED 02:09
DX: R14.0 Abdominal distension (gaseous) (principal); J45.909 Unspecified asthma, uncomplicated; F32.9 Major depressive disorder, single episode, unspecified; F17.210 Nicotine dependence, cigarettes, uncomplicated; F41.9 Anxiety disorder, unspecified; Z91.040 Latex allergy status; Z88.8 Allergy status to other drugs, medicaments and biological substances
CPT/HCPCS: 36415; 81001; 81025; 84702; 87086; 99284

== ENCOUNTER 2020-05-29 15:34 | Emergency (ER) | payer OTHER, MEDICAID ==
--- NOTE | 2020-05-29 16:10 | EDM.PDOC ---
ED HPI GENERAL MEDICAL PROBLEM - General Chief Complaint: General Stated Complaint: WORKERS COMP Time Seen by Provider: 05/29/20 15:47 Source of Information: Reports: Patient History Limitations: Reports: No Limitations - History of Present Illness INITIAL COMMENTS - FREE TEXT/NARRATIVE: HISTORY AND PHYSICAL: History of present illness: Patient is a 25-year-old female who presents to the ED today with concern of a needlestick to her right middle finger that occurred at work. 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 Patient states she looked in the garbage and noted that there was a needle that had poked her. Patient states that it did not draw blood but was instructed by her work to come and get and be evaluated. Patient denies any symptoms or concerns at this time. Patient denies fever, chills, chest pain, shortness of breath, or cough. Denies headache, neck stiff ness, change in vision, syncope, or near syncope. Denies nausea, vomiting, abdominal pain, diarrhea, constipation, or dysuria. Has not noted any blood in urine or stool. Patient has been eating and drinking appropriately. Review of systems: As per history of present illness and below otherwise all systems reviewed and negative. Past medical history: As per history of present illness and as reviewed below otherwise noncontributo ry. Surgical history: As per history of present illness and as reviewed below otherwise noncontributory. Social history: See social history for further information Family history: As per history of present illness and as reviewed below otherwise noncontributory. Physical exam: General: Patient is alert, oriented, and in no acute distress. Patient sitting comfortably on exam table. HEENT: Atraumatic, normocephalic, pupils equal and reactive bilaterally, negative for conjunctival pallor or scleral icterus, mucous membranes moist, TMs normal bilaterally, throat clear, neck supple, nontender, trachea midline. No drooling or trismus noted. No meningeal signs. No hot potato voice noted. Lungs: Clear to auscultation, breath sounds equal bilaterally, chest nontender. Heart: S1S2, regular rate and rhythm without overt murmur Abdomen: Soft, nondistended, nontender. Negative for masses or hepatosplenomegaly. Negative for costovertebral tenderness. Pelvis: Stable nontender. Genitourinary: Deferred. Rectal: Deferred. Skin: Intact, warm, dry. No lesions or rashes noted. Extremities: Atraumatic, negative for cords or calf pain. Neurovascular unremarkable. Neuro: Awake, alert, oriented. Cranial nerves II through XII unremarkable. Cerebellum unremarkable. Motor and sensory unremarkable throughout. Exam nonfocal. Notes: Discussed importance for follow-up with a primary care provider. Voices understanding and is agreeable to plan of care. Denies any further questions or concerns at this time. Diagnostics: Source exposure labs Therapeutics: None Prescription: None Impression: Needlestick exposure Plan: 1. Follow-up with your primary care provider for repeat lab draw as discussed. Return to the ED as needed and as discussed. Definitive disposition and diagnosis as appropriate pending reevaluation and review of above. - Related Data Allergies Allergy/AdvReac Type Severity Reaction Status Date / Time latex Allergy Blisters Verified 05/29/20 15:47 Latex, Natural Rubber Allergy Blisters Verified 05/29/20 15:47 lorazepam [From Ativan] Allergy Seizure Verified 05/29/20 15:47 phenazopyridine Allergy Vomiting Verified 05/29/20 15:47 [From Pyridium] promethazine Allergy Other Verified 05/29/20 15:47 chloraprep Allergy Blisters Uncoded 05/29/20 15:47 Home Meds: Home Meds Albuterol Sulfate [Albuterol Sulfate Hfa] 1 puff INH ASDIRECTED 05/29/20 [History] Albuterol [Proventil Neb Soln] 1 dose INH ASDIRECTED 05/29/20 [History] valACYclovir [Valtrex] 1 tab PO ASDIRECTED 05/29/20 [History] Past Medical History - Past Health History Medical/Surgical History: Denies Medical/Surgical History HEENT History: Reports: None Cardiovascular History: Reports: Other (See Below) Other Cardiovascular History: cyantistachardia Respiratory History: Reports: Asthma Gastrointestinal History: Reports: None Genitourinary History: Reports: None Other Genitourinary History: endometriosis, painful bladder syndrom, HSV 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, 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 Musculoskeletal History: Reports: None Neurological History: Reports: None Psychiatric History: Reports: Anxiety, Depression Endocrine/Metabolic History: Reports: None Hematologic History: Reports: None Immunologic History: Reports: None Oncologic (Cancer) History: Reports: None Dermatologic History: Reports: None - Infectious Disease History Infectious Disease History: Reports: Herpes - Past Surgical History Head Surgeries/Procedures: Reports: None HEENT Surgical History: Reports: None Cardiovascular Surgical History: Reports: None Respiratory Surgical History: Reports: None GI Surgical History: Reports: Other (See Below) Other GI Surgeries/Procedures: Laparoscopy Female Surgical History: Reports: None Endocrine Surgical History: Reports: None Neurological Surgical History: Reports: None Musculoskeletal Surgical History: Reports: None Oncologic Surgical History: Reports: None Dermatological Surgical History: Reports: None Social & Family History - Family History Family Medical History: Noncontributory - Tobacco Use Smoking Status *Q: Current Every Day Smoker Years of Tobacco use: 10 Packs/Tins Daily: 1 - Caffeine Use Caffeine Use: Reports: Energy Drinks Caffeine Use Comment: 3drinks/day - Recreational Drug Use Recreational Drug Use: No ED ROS GENERAL - Review of Systems Review Of Systems: Comprehensive ROS is negative, except as noted in HPI. ED EXAM, GENERAL - Physical Exam Exam: See Below (see dictation) Course - Vital Signs Last Recorded V/S: Last Vital Signs Temp 97.5 F 05/29/20 15:45 Pulse 107 H 05/29/20 15:45 Resp 18 05/29/20 15:45 BP 118/83 05/29/20 15:45 Pulse Ox 97 05/29/20 15:45 - Orders/Labs/Meds Orders: Active Orders 24 hr Category Date Time Status HEPATITIS B SURFACE AG [CHEM] Routine Lab 05/29/20 15:59 Ordered HEPATITIS C ANTIBODY [CHEM] Routine Lab 05/29/20 15:59 Ordered HIV12 AG/AB 4TH GEN [CHEM] Routine Lab 05/29/20 15:59 Ordered Departure - Departure Time of Disposition: 16:08 Disposition: Home, Self-Care 01 Clinical Impression: Needle exposure Qualifiers: Encounter type: initial encounter Qualified Code(s): X58.XXXA - Exposure to other specified factors, initial encounter - Discharge Information Referrals: PCP,None [Primary Care Provider] - Forms: ED Department Discharge Additional Instructions: The following information is given to patients seen in the emergency department who are being discharged to home. This information is to outline your options for follow-up care. We provide all patients seen in our emergency department with a follow-up referral. The need for follow-up, as well as the timing and circumstances, are variable depending upon the specifics of your emergency department visit. If you don't have a primary care physician on staff, we will provide you with a referral. We always advise you to contact your personal physician following an emergency department visit to inform them of the circumstance of the visit and for follow-up with them and/or the need for any referrals to a consulting specialist. The emergency department will also refer you to a specialist when appropriate. This referral assures that you have the opportunity for follow-up care with a specialist. All of these measure are taken in an effort to provide you with optimal care, which includes your follow-up. Under all circumstances we always encourage you to contact your private physician who remains a resource for coordinating your care. When calling for follow-up care, please make the office aware that this follow-up is from your recent emergency room visit. If for any reason you are refused follow-up, please contact the [facility] Emergency Department at and asked to speak to the emergency department charge nurse. [facility] [address] [place] [address] [place] [address] 1. Follow-up with your primary care provider for repeat lab draw as discussed. Return to the ED as needed and as discussed. Sepsis Event Note (ED) - Evaluation Sepsis Screening Result: No Definite Risk - Focused Exam Vital Signs: Vital Signs Temp Pulse Resp BP Pulse Ox 05/29/20 15:45 97.5 F 107 H 18 118/83 97 - My Orders Last 24 Hours: My Active Orders 05/29/20 15:59 HEPATITIS B SURFACE AG [CHEM] Routine HEPATITIS C ANTIBODY [CHEM] Routine HIV12 AG/AB 4TH GEN [CHEM] Routine - Assessment/Plan Last 24 Hours: My Active Orders 05/29/20 15:59 HEPATITIS B SURFACE AG [CHEM] Routine HEPATITIS C ANTIBODY [CHEM] Routine HIV12 AG/AB 4TH GEN [CHEM] Routine
[2020-05-29 16:27] VITALS: BP 127/74; PULSE 102
== END 2020-05-29 16:20 | disposition home or self-care (01) ==
LOC: MW.ED 15:34
DX: S60.452A Superficial foreign body of right middle finger, initial encounter (principal); J45.909 Unspecified asthma, uncomplicated; F17.210 Nicotine dependence, cigarettes, uncomplicated; Z91.040 Latex allergy status; Z88.3 Allergy status to other anti-infective agents; Z88.8 Allergy status to other drugs, medicaments and biological substances; X58.XXXA Exposure to other specified factors, initial encounter; Y92.89 Other specified places as the place of occurrence of the external cause; Y99.0 Civilian activity done for income or pay
CPT/HCPCS: 36415; 86803; 87340; 87389; 99282; 99283

== ENCOUNTER 2020-06-25 12:41 | Emergency (ER) | payer MEDICAID, OTHER ==
[2020-06-25] MEDS ORDERED: Ibuprofen 800 MG Tab PO ONE (13:12)
--- NOTE | 2020-06-25 13:20 | EDM.PDOC ---
ED HPI GENERAL MEDICAL PROBLEM - General Chief Complaint: Upper Extremity Injury/Pain Stated Complaint: RIGHT WRIST INJURY Time Seen by Provider: 06/25/20 12:58 - History of Present Illness INITIAL COMMENTS - FREE TEXT/NARRATIVE: History of present illness: [] Patient presents with right thumb pain and decreased range of motion for the past 2 days patient previously had some difficulty with her thumb last December she had a tendon release surgery in [place] where she was living at the time and that had healed well and done fine until 2 days ago when she suddenly had increased amounts of pain and was unable to move the thumb and its full range of motion. She denies any new injuries there is been no fever chills no redness or swelling at the site of the surgery had completely healed prior to this episode. Movement makes it worse being still makes it better Review of systems: As per history of present illness and below otherwise all systems reviewed and negative. Past medical history: As per history of present illness and as reviewed below otherwise noncontributory. Surgical history: As per history of present illness and as reviewed below otherwise noncontributory. Social history: No reported history of drug or alcohol abuse. Family history: As per history of present illness and as reviewed below otherwise noncontributory. Physical exam: HEENT: Atraumatic, normocephalic, pupils reactive, negative for conjunctival pallor or scleral icterus, mucous membranes moist, throat clear, neck supple, nontender, trachea midline. Lungs: Clear to auscultation, breath sounds equal bilaterally, chest nontender. Heart: S1S2, regular, negative for clicks, rubs, or JVD. Abdomen: Soft, nondistended, nontender. Negative for masses or hepatosplenomegaly. Negative for costovertebral tenderness. Pelvis: Stable nontender. Genitourinary: Deferred. Rectal: Deferred. Extremities: Atraumatic, negative for cords or calf pain. Neurovascular unremarkable. There is pain with passive range of motion of the thumb she has g ood distal pulse motor sensation cap refill there is no signs of infection at the incision site which has healed completely no bony tenderness Neuro: Awake, alert, oriented. Cranial nerves II through XII unremarkable. Cerebellum unremarkable. Motor and sensory unremarkable throughout. Exam nonfocal. Diagnostics: [] Therapeutics: [] Impression: Tendinitis and wrist pain right thumb [] Plan: Obtain an x-ray of the right wrist, Motrin ice pack and application of thumb spica by nursing staff for pain control [] Definitive disposition and diagnosis as appropriate pending reevaluation and review of above. R Forearm/Wrist/Hand Pain Score (Numeric/FACES): 7 - Related Data Allergies Allergy/AdvReac Type Severity Reaction Status Date / Time latex Allergy Blisters Verified 06/25/20 13:15 Latex, Natural Rubber Allergy Blisters Verified 06/25/20 13:15 lorazepam [From Ativan] Allergy Seizure Verified 06/25/20 13:15 phenazopyridine Allergy Vomiting Verified 06/25/20 13:15 [From Pyridium] promethazine Allergy Other Verified 06/25/20 13:15 chloraprep Allergy Blisters Uncoded 06/25/20 13:15 Home Meds: Home Meds Naproxen [Naprosyn] 500 mg PO Q12HR #20 tab 06/25/20 [Rx] Past Medical History - Past Health History Medical/Surgical History: Denies Medical/Surgical History HEENT History: Reports: None Cardiovascular History: Reports: Other (See Below) Other Cardiovascular History: cyantistachardia Respiratory History: Reports: Asthma Gastrointestinal History: Reports: None Genitourinary History: Reports: None Other Genitourinary History: endometriosis, painful bladder syndrom, HSV 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: 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, Other SUPER[employer]OR [employer] History: pt reports not being on control Musculoskeletal History: Reports: None Neurological History: Reports: None Psychiatric History: Reports: Anxiety, Depression Endocrine/Metabolic History: Reports: None Hematologic History: Reports: None Immunologic History: Reports: None Oncologic (Cancer) History: Reports: None Dermatologic History: Reports: None - Infectious Disease History Infectious Disease History: Reports: Herpes - Past Surgical History Head Surgeries/Procedures: Reports: None HEENT Surgical History: Reports: None Cardiovascular Surgical History: Reports: None Respiratory Surgical History: Reports: None GI Surgical History: Reports: Other (See Below) Other GI Surgeries/Procedures: Laparoscopy Female Surgical History: Reports: None Endocrine Surgical History: Reports: None Neurological Surgical History: Reports: None Musculoskeletal Surgical History: Reports: None Oncologic Surgical History: Reports: None Dermatological Surgical History: Reports: None Social & Family History - Family History Family Medical History: Noncontributory - Caffeine Use Caffeine Use: Reports: Energy Drinks Caffeine Use Comment: 3drinks/day Review of Systems - Review of Systems Review Of Systems: See Below ED EXAM, GENERAL - Physical Exam Exam: See Below Course - Vital Signs Text/Narrative:: Patient be splinted naproxen at home follow-up with orthopedics A 3 view right wrist was obtained that is negative for acute fractures or dislocations read and interpreted by me Last Recorded V/S: Last Vital Signs Temp 36.3 C 06/25/20 13:16 Pulse 87 06/25/20 13:16 Resp 16 06/25/20 13:16 BP 122/69 06/25/20 13:16 Pulse Ox 99 06/25/20 13:16 - Orders/Labs/Meds Orders: Active Orders 24 hr Category Date Time Status Wrist Comp Min 3V Rt [CR] Stat Exams 06/25/20 13:12 Taken DME for Discharge [COMM] Stat Oth 06/25/20 13:13 Ordered Meds: Medications Discontinued Medications Generic Name Dose Route Start Last Admin Trade Name Freq PRN Reason Stop Dose Admin Ibuprofen 800 mg 06/25/20 13:12 Motrin PO 06/25/20 13:13 ONETIME ONE Departure - Departure Time of Disposition: 13:38 Disposition: Home, Self-Care 01 Condition: Good Clinical Impression: Tendinitis - Discharge Information *PRESCRIPTION DRUG MONITORING PROGRAM REVIEWED*: Not Applicable *COPY OF PRESCRIPTION DRUG MONITORING REPORT IN PATIENT DAMION: Not Applicable Prescriptions: Naproxen [Naprosyn] 500 mg PO Q12HR #20 tab Instructions: Tenosynovitis Referrals: PCP,None [Primary Care Provider] - Forms: ED Department Discharge, ED Return to Work/School Form Additional Instructions: The following information is given to patients seen in the emergency department who are being discharged to home. This information is to outline your options for follow-up care. We provide all patients seen in our emergency department with a follow-up referral. The need for follow-up, as well as the timing and circumstances, are variable depending upon the specifics of your emergency department visit. If you don't have a primary care physician on staff, we will provide you with a referral. We always advise you to contact your personal physician following an emergency department visit to inform them of the circumstance of the visit and for follow-up with them and/or the need for any referrals to a consulting specialist. The emergency department will also refer you to a specialist when appropriate. This referral assures that you have the opportunity for follow-up care with a specialist. All of these measure are taken in an effort to provide you with optimal care, which includes your follow-up. Under all circumstances we always encourage you to contact your private physician who remains a resource for coordinating your care. When calling for follow-up care, please make the office aware that this follow-up is from your recent emergency room visit. If for any reason you are refused follow-up, please contact the [facility] Emergency Department at and asked to speak to the emergency department charge nurse. [facility] Professional Building [address] [place] [address], [address] [place] [address] Sepsis Event Note (ED) - Focused Exam Vital Signs: Vital Signs Temp Pulse Resp BP Pulse Ox 06/25/20 13:16 36.3 C 87 16 122/69 99 - My Orders Last 24 Hours: My Active Orders 06/25/20 13:12 Wrist Comp Min 3V Rt [CR] Stat 06/25/20 13:13 DME for Discharge [COMM] Stat - Assessment/Plan Last 24 Hours: My Active Orders 06/25/20 13:12 Wrist Comp Min 3V Rt [CR] Stat 06/25/20 13:13 DME for Discharge [COMM] Stat
--- NOTE | 2020-06-25 13:41 | CR ---
Right wrist: 3 views of the right wrist were obtained. Comparison: No previous wrist study. Several calcifications are seen lateral to the trapezium. This may relate to tendon calcification. Joint spaces are preserved. No acute fracture or other bony abnormality is appreciated. Impression: 1. Calcifications lateral to the trapezium which may be tendinous in location and representing calcific tendinitis if patient has symptoms to this area. Findings are otherwise dystrophic if patient has no symptoms to this area. 2. No acute bony abnormality is appreciated. Diagnostic code #3 Study was dictated in MDT
[2020-06-25 13:46] VITALS: BP 117/73; PULSE 84
== END 2020-06-25 14:03 | disposition home or self-care (01) ==
LOC: MW.ED 12:41
DX: M77.9 Enthesopathy, unspecified (principal); J45.909 Unspecified asthma, uncomplicated; Z88.8 Allergy status to other drugs, medicaments and biological substances; Z91.040 Latex allergy status
CPT/HCPCS: 29125; 73110; 99283; A9270; 99282

== ENCOUNTER 2020-07-02 15:20 | Emergency (ER) | payer MEDICAID ==
[2020-07-02 15:37] VITALS: BP 123/69; PULSE 99
--- NOTE | 2020-07-02 15:45 | EDM.PDOC ---
ED HPI GENERAL MEDICAL PROBLEM - General Chief Complaint: ROSTER CLERK Problem Stated Complaint: CRAMPING/6WK GESTATION Time Seen by Provider: 07/02/20 15:23 Source of Information: Reports: Patient History Limitations: Reports: No Limitations - History of Present Illness INITIAL COMMENTS - FREE TEXT/NARRATIVE: HISTORY AND PHYSICAL: History of present illness: Patient is a 25-year-old female who presents to the emergency room with complaints of abdominal cramping and pressure in . She states she is approximately 6 weeks gestation, started having cramping around noon. Patient states she was seen at "[facility]" and had an ultrasound which told her she was approximately 6 weeks and 2 days. Due to the cramping and numerous previous miscarriages she wanted to come in for evaluation. Denies any vaginal bleeding or discharge. Patient denies any fever, chills, headache, change in vision, syncope or near syncope. Denies any chest pain, back pain, shortness of breath or cough. Denies any nausea, vomiting, diarrhea, constipation or dysuria. Has not noted any blood in urine or stool. Patient has been eating and drinking appropriately. She recently moved here from out of [facility], no previous ROSTER CLERK care here/set up. 5, para 1. Review of systems: As per history of present illness and below otherwise all systems reviewed and negative. Past medical history: As per history of present illness and as reviewed below otherwise noncontributory. Surgical history: As per history of present illness and as reviewed below otherwise noncontributory. Social history: See social history for further information Family history: As per history of present illness and as reviewed below otherwise noncontributory. Physical exam: General: Well developed and well nourished. Alert and orientated x 3. Nontoxic in appearance and in no acute distress. Vital signs are stable and have been reviewed by me. Nursing notes were reviewed. HEENT: Atraumatic, normocephalic, pupils equal and reactive bilaterally, negative for conjunctival pallor or scleral icterus, mucous membranes moist, TMs normal bilaterally, throat clear, neck supple, nontender, trachea midline. No drooling or trismus noted. No meningeal signs. No hot potato voice noted. Lungs: Clear to auscultation, breath sounds equal bilaterally, chest nontender. Normal work of breathing, no accessory muscles used. Heart: S1S2, regular rate and rhythm without overt murmur Abdomen: Soft, nondistended, nontender. Negative for masses or hepatosplenomegaly. Negative for costovertebral tenderness. Skin: Intact, warm, dry. No lesions or rashes noted. Hematologic: No petechiae or purpra. Mucosa appropriate color and normal nail bed color and refill. Extremities: Atraumatic, moves all extremities per self without difficulty or deficits, negative for cords or calf pain. Neurovascular unremarkable. Neuro: Awake, alert, oriented. Cranial nerves II through XII unremarkable. Cerebellum unremarkable. Motor and sensory unremarkable throughout. Exam nonfocal. Psychiatric: Mood and affect are appropriate. Normal thought process. Answering questions appropriately. Notes: Quant HCG 1.0; no previous quants available. Ultrasound shows no intrauterine gestational sac. Cystic area with thick surrounding rim within the left adnexa, radiology states this is suspicious for ectopic . Mild to moderate free fluid in the left adnexa. 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 Patient is able to be discharged home, will follow-up with ROSTER CLERK within 2 weeks. I have spoken with the patient and discussed today's findings, in addition to providing specific details for plan of care. The patient is stable for discharge, counseling was provided and we discussed in great detail signs and symptoms that would prompt them to return to the Emergency Department. Medication, follow up and supportive care measures were reviewed and discussed. Voices understanding and is agreeable to plan of care. Denies any further questions or concerns at this time. Diagnostics: CBC, CMP, UA, Quant HCG Therapeutics: None Prescription: None Impression: Abdominal Pain Plan: 1. Your ultrasound shows no gestational sac. There is some concern with some debri in the left adnexa (this needs to be followed). [facility] at [facility] or [facility]. Please be re- evaluated in 1-2 weeks. 2. Pelvic rest until cleared by your OBGYN (no tampons, sex, etc...) 3. Tylenol as needed for pain management. 4. Follow up with her ROSTER CLERK in the next 1-2 days. Return to the ED as needed and as discussed. Definitive disposition and diagnosis as appropriate pending reevaluation and review of above. lower abdomen Pain Score (Numeric/FACES): 7 - Related Data Allergies Allergy/AdvReac Type Severity Reaction Status Date / Time latex Allergy Blisters Verified 07/02/20 15:29 Latex, Natural Rubber Allergy Blisters Verified 07/02/20 15:29 lorazepam [From Ativan] Allergy Seizure Verified 07/02/20 15:29 phenazopyridine Allergy Vomiting Verified 07/02/20 15:29 [From Pyridium] promethazine Allergy Other Verified 07/02/20 15:29 chloraprep Allergy Blisters Uncoded 07/02/20 15:29 Home Meds: Home Meds . 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, Other ROSTER CLERK History: pt reports not being on control Musculoskeletal History: Reports: None Neurological History: Reports: None Psychiatric History: Reports: Anxiety, Depression Endocrine/Metabolic History: Reports: None Hematologic History: Reports: None Immunologic History: Reports: None Oncologic (Cancer) History: Reports: None Dermatologic History: Reports: None - Infectious Disease History Infectious Disease History: Reports: None - Past Surgical History Head Surgeries/Procedures: Reports: None HEENT Surgical History: Reports: None Cardiovascular Surgical History: Reports: None Respiratory Surgical History: Reports: None GI Surgical History: Reports: Other (See Below) Other GI Surgeries/Procedures: Laparoscopy Female Surgical History: Reports: None Endocrine Surgical History: Reports: None Neurological Surgical History: Reports: None Musculoskeletal Surgical History: Reports: None Oncologic Surgical History: Reports: None Dermatological Surgical History: Reports: None Social & Family History - Family History Family Medical History: Noncontributory - Tobacco Use Smoking Status *Q: Current Every Day Smoker Years of Tobacco use: 10 Packs/Tins Daily: 1 - Caffeine Use Caffeine Use: Reports: Energy Drinks Caffeine Use Comment: 3drinks/day - Recreational Drug Use Recreational Drug Use: No ED ROS GENERAL - Review of Systems Review Of Systems: Comprehensive ROS is negative, except as noted in HPI. ED EXAM - Physical Exam Exam: See Below (See dictation) Course - Vital Signs Last Recorded V/S: Last Vital Signs Temp 97.9 F 07/02/20 15:30 Pulse 99 07/02/20 15:30 Resp 17 07/02/20 15:30 BP 123/69 07/02/20 15:30 Pulse Ox 97 07/02/20 15:30 - Orders/Labs/Meds Labs: Laboratory Tests 07/02/20 07/02/20 07/02/20 Range/Units 15:34 15:48 15:48 WBC 7.19 (4.0-11.0) K/uL RBC 4.37 (4.30-5.90) M/uL Hgb 13.1 (12.0-16.0) g/dL Hct 38.8 (36.0-46.0) % MCV 88.8 (80.0-98.0) fL MCH 30.0 (27.0-32.0) pg MCHC 33.8 (31.0-37.0) g/dL RDW Std Deviation 42.4 (28.0-62.0) fl RDW Coeff of [place] 13 (11.0-15.0) % Plt Count 267 (150-400) K/uL MPV 10.10 (7.40-12.00) fL Neut % (Auto) 56.9 (48.0-80.0) % Lymph % (Auto) 35.2 (16.0-40.0) % Rains % (Auto) 5.7 (0.0-15.0) % Eos % (Auto) 1.9 (0.0-7.0) % Baso % (Auto) 0.3 (0.0-1.5) % Neut # (Auto) 4.1 (1.4-5.7) K/uL Lymph # (Auto) 2.5 H (0.6-2.4) K/uL Rains # (Auto) 0.4 (0.0-0.8) K/uL Eos # (Auto) 0.1 (0.0-0.7) K/uL Baso # (Auto) 0.0 (0.0-0.1) K/uL Nucleated RBC % 0.0 /100WBC Nucleated RBCs # 0 K/uL Sodium 139 (136-145) mmol/L Potassium 3.5 (3.5-5.1) mmol/L Chloride 105 (98-107) mmol/L Carbon Dioxide 25.2 (21.0-32.0) mmol/L BUN 24 H (7.0-18.0) mg/dL Creatinine 0.8 (0.6-1.0) mg/dL Est Cr Clr Drug Dosing 106.36 mL/min Estimated GFR (MDRD) > 60.0 ml/min Glucose 103 (74-106) mg/dL Calcium 9.1 (8.5-10.1) mg/dL Total Bilirubin 0.5 (0.2-1.0) mg/dL AST 12 L (15-37) IU/L ALT 19 (14-63) IU/L Alkaline Phosphatase 58 (46-116) U/L Total Protein 7.3 (6.4-8.2) g/dL Albumin 4.4 (3.4-5.0) g/dL Globulin 2.9 (2.6-4.0) g/dL Albumin/Globulin Ratio 1.5 (0.9-1.6) HCG, Quant 1.0 mIU/mL Urine Color YELLOW Urine Appearance CLEAR Urine pH 6.0 (5.0-8.0) Ur Specific [place] >= 1.030 (1.001-1.035) Urine Protein NEGATIVE (NEGATIVE) mg/dL Urine Glucose (UA) NEGATIVE (NEGATIVE) mg/dL Urine Ketones NEGATIVE (NEGATIVE) mg/dL Urine Occult Blood TRACE-INTACT H (NEGATIVE) Urine Nitrite NEGATIVE (NEGATIVE) Urine Bilirubin NEGATIVE (NEGATIVE) Urine Urobilinogen 0.2 (<2.0) EU/dL Ur Leukocyte Esterase SMALL H (NEGATIVE) Urine RBC 3-5 (0-2/HPF) Urine WBC 1-2 (0-5/HPF) Ur Epithelial Cells MODERATE (NONE-FEW) Urine Bacteria RARE (NEGATIVE) Blood Type 07/02/20 Range/Units 15:48 WBC (4.0-11.0) K/uL RBC (4.30-5.90) M/uL Hgb (12.0-16.0) g/dL Hct (36.0-46.0) % MCV (80.0-98.0) fL MCH (27.0-32.0) pg MCHC (31.0-37.0) g/dL RDW Std Deviation (28.0-62.0) fl RDW Coeff of [place] (11.0-15.0) % Plt Count (150-400) K/uL MPV (7.40-12.00) fL Neut % (Auto) (48.0-80.0) % Lymph % (Auto) (16.0-40.0) % Rains % (Auto) (0.0-15.0) % Eos % (Auto) (0.0-7.0) % Baso % (Auto) (0.0-1.5) % Neut # (Auto) (1.4-5.7) K/uL Lymph # (Auto) (0.6-2.4) K/uL Rains # (Auto) (0.0-0.8) K/uL Eos # (Auto) (0.0-0.7) K/uL Baso # (Auto) (0.0-0.1) K/uL Nucleated RBC % /100WBC Nucleated RBCs # K/uL Sodium (136-145) mmol/L Potassium (3.5-5.1) mmol/L Chloride (98-107) mmol/L Carbon Dioxide (21.0-32.0) mmol/L BUN (7.0-18.0) mg/dL Creatinine (0.6-1.0) mg/dL Est Cr Clr Drug Dosing mL/min Estimated GFR (MDRD) ml/min Glucose (74-106) mg/dL Calcium (8.5-10.1) mg/dL Total Bilirubin (0.2-1.0) mg/dL AST (15-37) IU/L ALT (14-63) IU/L Alkaline Phosphatase (46-116) U/L Total Protein (6.4-8.2) g/dL Albumin (3.4-5.0) g/dL Globulin (2.6-4.0) g/dL Albumin/Globulin Ratio (0.9-1.6) HCG, Quant mIU/mL Urine Color Urine Appearance Urine pH (5.0-8.0) Ur Specific [place] (1.001-1.035) Urine Protein (NEGATIVE) mg/dL Urine Glucose (UA) (NEGATIVE) mg/dL Urine Ketones (NEGATIVE) mg/dL Urine Occult Blood (NEGATIVE) Urine Nitrite (NEGATIVE) Urine Bilirubin (NEGATIVE) Urine Urobilinogen (<2.0) EU/dL Ur Leukocyte Esterase (NEGATIVE) Urine RBC (0-2/HPF) Urine WBC (0-5/HPF) Ur Epithelial Cells (NONE-FEW) Urine Bacteria (NEGATIVE) Blood Type AB POSITIVE Departure - Departure Time of Disposition: 17:03 Disposition: Home, Self-Care 01 Clinical Impression: Abdominal pain Qualifiers: Abdominal location: lower abdomen, unspecified Qualified Code(s): R10.30 - Lower abdominal pain, unspecified - Discharge Information Instructions: Threatened Miscarriage, [id number] Referrals: PCP,Not In Area [Primary Care Provider] - Forms: ED Department Discharge Additional Instructions: The following information is given to patients seen in the emergency department who are being discharged to home. This information is to outline your options for follow-up care. We provide all patients seen in our emergency department with a follow-up referral. The need for follow-up, as well as the timing and circumstances, are variable depending upon the specifics of your emergency department visit. If you don't have a primary care physician on staff, we will provide you with a referral. We always advise you to contact your personal physician following an emergency department visit to inform them of the circumstance of the visit and for follow-up with them and/or the need for any referrals to a consulting specialist. The emergency department will also refer you to a specialist when appropriate. This referral assures that you have the opportunity for follow-up care with a specialist. All of these measure are taken in an effort to provide you with optimal care, which includes your follow-up. Under all circumstances we always encourage you to contact your private physician who remains a resource for coordinating your care. When calling for follow-up care, please make the office aware that this follow-up is from your recent emergency room visit. If for any reason you are refused follow-up, please contact the [facility] Emergency Department at and asked to speak to the emergency department charge nurse. [facility] Primary Care - Women's Health [address] [place] [id number] [facility] [address] [place] [address] Thank you for choosing the [facility] emergency department in [place] for your medical needs today. It was a pleasure caring for you. Today you were seen in the emergency department for pelvic pain in . 1. Your ultrasound shows no gestational sac. There is some concern with some debri in the left adnexa (this needs to be followed). You can follow up at the [facility] or [facility]. Please be re- evaluated in 1-2 weeks. 2. Pelvic rest until cleared by your OBGYN (no tampons, sex, etc...) 3. Tylenol as needed for pain management. 4. Follow up with her ROSTER CLERK in the next 1-2 days. Return to the ED as needed and as discussed. Sepsis Event Note (ED) - Evaluation Sepsis Screening Result: No Definite Risk - Focused Exam Vital Signs: Vital Signs Temp Pulse Resp BP Pulse Ox 07/02/20 15:30 97.9 F 99 17 123/69 97
[2020-07-02 16:35] LABS: BLOOD UREA NITROGEN,BUN 24 mg/dL (7.0-18.0); CARBON DIOXIDE,CO2 25.2 mmol/L (21.0-32.0); CHLORIDE,CL 105 mmol/L (98-107); GLUCOSE RANDOM 103 mg/dL (74-106); POTASSIUM,K 3.5 mmol/L (3.5-5.1); SODIUM,NA 139 mmol/L (136-145)
--- NOTE | 2020-07-02 16:37 | US ---
First trimester obstetrical ultrasound: Multiple real-time images were obtained transvaginally. Comparison: No previous study for current is available. Findings: Uterus is anteverted. No intrauterine gestational sac is identified. There is a small amount of free fluid being seen within the right adnexa. Left adnexa shows a small cystic area with debris measuring 2.5 cm suspicious for ectopic if patient has correlating beta-hCG. Right adnexa appears within normal limits. Impression: 1. No intrauterine gestational sac. 2. Cystic area with thick surrounding rim within the left adnexa suspicious for ectopic if patient has correlating beta-hCG. 3. Mild to moderate of free fluid within the left adnexa. Diagnostic code #5 This report was dictated in MDT
== END 2020-07-02 17:30 | disposition home or self-care (01) ==
LOC: MW.ED 15:20
DX: O26.91 Pregnancy related conditions, unspecified, first trimester (principal); Z3A.01 Less than 8 weeks gestation of pregnancy; R10.30 Lower abdominal pain, unspecified; J45.909 Unspecified asthma, uncomplicated; O99.331 Smoking (tobacco) complicating pregnancy, first trimester; F17.210 Nicotine dependence, cigarettes, uncomplicated; Z91.040 Latex allergy status; Z88.8 Allergy status to other drugs, medicaments and biological substances; Z88.3 Allergy status to other anti-infective agents
CPT/HCPCS: 36415; 76801; 76801-26; 80053; 81001; 84702; 85025; 86900; 86901; 99283; 99284-25

== ENCOUNTER 2020-08-15 11:49 | Emergency (ER) | payer MEDICAID ==
--- NOTE | 2020-08-15 12:09 | EDM.PDOC ---
ED HPI GENERAL MEDICAL PROBLEM - General Chief Complaint: Upper Extremity Injury/Pain Stated Complaint: POSSIBLE BROKEN WRIST RIGHT HAND Time Seen by Provider: 08/15/20 12:02 Source of Information: Reports: Patient History Limitations: Reports: No Limitations - History of Present Illness INITIAL COMMENTS - FREE TEXT/NARRATIVE: 25-year-old female presents for pain in right wrist following a fall. Patient states that she fell forward landing on the radial aspect of her right wrist. She denies hitting her head or loss of consciousness. She states that she has limited movement of the hand secondary to pain. She also notes some numbness and tingling sensation to the entire hand. She notes history of tendon release surgery in December of this year on the same wrist. right wrist Pain Score (Numeric/FACES): 9 - Related Data Allergies Allergy/AdvReac Type Severity Reaction Status Date / Time latex Allergy Blisters Verified 08/15/20 12:31 Latex, Natural Rubber Allergy Blisters Verified 08/15/20 12:31 lorazepam [From Ativan] Allergy Seizure Verified 08/15/20 12:31 phenazopyridine Allergy Vomiting Verified 08/15/20 12:31 [From Pyridium] promethazine Allergy Other Verified 08/15/20 12:31 chloraprep Allergy Blisters Uncoded 08/15/20 12:31 Home Meds: Home Meds . 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 Musculoskeletal History: Reports: None Neurological History: Reports: None Psychiatric History: Reports: Anxiety, Depression Endocrine/Metabolic History: Reports: None Hematologic History: Reports: None Immunologic History: Reports: None Oncologic (Cancer) History: Reports: None Dermatologic History: Reports: None - Infectious Disease History Infectious Disease History: Reports: None - Past Surgical History Head Surgeries/Procedures: Reports: None HEENT Surgical History: Reports: None Cardiovascular Surgical History: Reports: None Respiratory Surgical History: Reports: None GI Surgical History: Reports: Other (See Below) Other GI Surgeries/Procedures: Laparoscopy Female Surgical History: Reports: None Endocrine Surgical History: Reports: None Neurological Surgical History: Reports: None Musculoskeletal Surgical History: Reports: None Oncologic Surgical History: Reports: None Dermatological Surgical History: Reports: None Social & Family History - Family History Family Medical History: No Pertinent Family History - Caffeine Use Caffeine Use: Reports: Energy Drinks Caffeine Use Comment: 3drinks/day Review of Systems - Review of Systems Review Of Systems: Comprehensive ROS is negative, except as noted in HPI. ED EXAM, GENERAL - Physical Exam Exam: See Below Exam Limited By: No Limitations General Appearance: Alert, WD/WN, No Apparent Distress Throat/Mouth: Normal Voice, No Airway Compromise Neck: Non-Tender, Full Range of Motion Respiratory/Chest: No Respiratory Distress, No Accessory Muscle Use Cardiovascular: Normal Peripheral Pulses Extremities: Other (no overt deformity of the RUE; + bruising to radial aspect of R hand/wrist, +TTP of R wrist diffuse, normal color/cap refill/temperature of R hand but with limited ROM, patient states she can feel me touching all of R hand/wrist but notes a numb/tingle sensation) Psychiatric: Normal Affect, Normal Mood Skin Exam: Warm, Dry, Intact, Normal Color Course - Vital Signs Last Recorded V/S: Last Vital Signs Temp 97.8 F 08/15/20 12:31 Pulse 111 H 08/15/20 12:31 Resp 18 08/15/20 12:31 BP 115/77 08/15/20 12:31 Pulse Ox 98 08/15/20 12:31 - Orders/Labs/Meds Orders: Active Orders 24 hr Category Date Time Status Splinting [RC] ASDIRECTED Care 08/15/20 13:10 Ordered Meds: Medications Discontinued Medications Generic Name Dose Route Start Last Admin Trade Name Freq PRN Reason Stop Dose Admin Ibuprofen 600 mg 08/15/20 12:31 08/15/20 12:37 Motrin PO 08/15/20 12:32 600 mg ONETIME ONE Administration Oxycodone/Acetaminophen 1 tab 08/15/20 12:31 08/15/20 12:37 Percocet 325-5 Mg PO 08/15/20 12:32 1 tab ONETIME ONE Administration - Re-Assessments/Exams Free Text/Narrative Re-Assessment/Exam: 08/15/20 12:36 Will treat pain, will get XR imaging to r/o fracture, will f/u results and disposition accordingly. 08/15/20 13:10 Subtle lucency at radial styloid process concerning for possible nondisplaced fracture. Will place patient in a short arm splint, recommend follow-up with orthopedics in a week for reimaging. Will discharge with pain medication and return precautions for compartment syndrome Departure - Departure Time of Disposition: 13:11 Disposition: Home, Self-Care 01 Condition: Good Clinical Impression: Fracture of radius Qualifiers: Encounter type: initial encounter Radius location: styloid process Fracture type: closed Fracture alignment: nondisplaced Laterality: right Qualified Code(s): S52.514A - Nondisplaced fracture of right radial styloid process, initial encounter for closed fracture - Discharge Information Instructions: Wrist Fracture Treated With Immobilization, [id number] Referrals: PCP,None [Primary Care Provider] - Forms: ED Department Discharge Additional Instructions: Your x-ray of your wrist shows a subtle lucency at your radial styloid process. This is a small part of the end of your arm bone. A subtle lucency on x-ray could be a normal variant meaning there is no fracture, or it could be a very small fracture. We will put you in a wrist splint, and you should follow-up with an orthopedic surgeon in roughly 1 week to have a repeat x-ray. When there is a subtle fracture, it becomes more noticeable after about a week on repeat imaging. If there is no fracture, there will not be a difference on the repeat image. Either way, it is very unlikely that this will need surgery. If you develop worsening pain or any concerning symptoms, come back to the emergency department for reassessment. [facility] [address], [address] [place] [address] The following information is given to patients seen in the emergency department who are being discharged to home. This information is to outline your options for follow-up care. We provide all patients seen in our emergency department with a follow-up referral. The need for follow-up, as well as the timing and circumstances, are variable depending upon the specifics of your emergency department visit. If you don't have a primary care physician on staff, we will provide you with a referral. We always advise you to contact your personal physician following an emergency department visit to inform them of the circumstance of the visit and for follow-up with them and/or the need for any referrals to a consulting specialist. The emergency department will also refer you to a specialist when appropriate. This referral assures that you have the opportunity for follow-up care with a specialist. All of these measure are taken in an effort to provide you with optimal care, which includes your follow-up. Under all circumstances we always encourage you to contact your private physician who remains a resource for coordinating your care. When calling for follow-up care, please make the office aware that this follow-up is from your recent emergency room visit. If for any reason you are refused follow-up, please contact the [facility] Emergency Department at and asked to speak to the emergency department charge nurse. Please follow up with your primary care physician. If you do not have a primary care physician, see below: [facility] [address] [place] [id number] [facility] [address] [place] [id number] Sepsis Event Note (ED) - Focused Exam Vital Signs: Vital Signs Temp Pulse Resp BP Pulse Ox 08/15/20 12:31 97.8 F 111 H 18 115/77 98 - My Orders Last 24 Hours: My Active Orders 08/15/20 13:10 Splinting [RC] ASDIRECTED - Assessment/Plan Last 24 Hours: My Active Orders 08/15/20 13:10 Splinting [RC] ASDIRECTED
[2020-08-15] MEDS ORDERED: Ibuprofen 600 MG Tab PO ONE (12:31)
[2020-08-15] MEDS ORDERED: Acetaminophen/oxyCODONE 325-5 MG Tab PO ONE (12:31)
--- NOTE | 2020-08-15 13:06 | CR ---
Indication: Fall Comparison: None available. Technique: AP, Lateral, and Oblique views right were obtained Findings: There is questionable subtle lucency through the radial styloid process. There is no other large, displaced fracture. There is mild soft tissue prominence. Impression: Questionable subtle lucency through the radial styloid process which may represent a nondisplaced injury. Correlate with site of clinical tenderness. Dictated by Gino Clark MD @ Aug 15 2020 1:03PM Signed by Dr. Gino Clark @ Aug 15 2020 1:05PM
[2020-08-15 13:50] VITALS: BP 124/69; PULSE 112
== END 2020-08-15 13:35 | disposition home or self-care (01) ==
LOC: MW.ED 11:49
DX: S52.514A Nondisplaced fracture of right radial styloid process, initial encounter for closed fracture (principal); J45.909 Unspecified asthma, uncomplicated; Z91.040 Latex allergy status; Z88.8 Allergy status to other drugs, medicaments and biological substances; W19.XXXA Unspecified fall, initial encounter
CPT/HCPCS: 73110; 99283; A9270; 29125

== ENCOUNTER 2020-11-08 22:19 | Emergency (ER) | payer MEDICAID ==
[2020-11-08] MEDS ORDERED: Acetaminophen/HYDROcodone 325-5 MG Tab PO ONE (22:57)
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
[2020-11-09 01:09] VITALS: BP 113/53; PULSE 84
== END 2020-11-09 00:45 | disposition home or self-care (01) ==
LOC: MW.ED 22:19
DX: G89.18 Other acute postprocedural pain (principal); J45.909 Unspecified asthma, uncomplicated; Z88.5 Allergy status to narcotic agent; Z91.040 Latex allergy status; Z88.8 Allergy status to other drugs, medicaments and biological substances
CPT/HCPCS: 71046; 99284; A9270; 99282

== ENCOUNTER 2021-01-16 22:00 | Emergency (ER) | payer SELFPAY ==
[2021-01-16] MEDS ORDERED: Sodium Chloride 0.9% 10 ML Syringe FLUSH PRN (22:06)
[2021-01-16] MEDS ORDERED: Sodium Chloride 0.9% 2.5 ML Syringe FLUSH PRN (22:06)
[2021-01-16] MEDS ORDERED: Lactated Ringers 1,000 ML IV ONE (22:06)
--- NOTE | 2021-01-16 22:14 | EDM.PDOC ---
ED HPI GENERAL MEDICAL PROBLEM - General Chief Complaint: Syncope Stated Complaint: HIT HEAD, LOSS CONSCIOUSNESS Time Seen by Provider: 01/16/21 22:02 Source of Information: Reports: Patient History Limitations: Reports: No Limitations - History of Present Illness INITIAL COMMENTS - FREE TEXT/NARRATIVE: 25-year-old female presents with head injury status post syncopal episode. She was standing and her body felt warm and fuzzy, her vision started getting black and she felt palpitations as if her heart rate "dropped" and she passed out, she hit the wall on the right side of her forehead with LOC. He sees an foundry technician at [facility], Dr. Keane. She has had a loop recorder in since November. Patient denies fever, chills, chest pain, shortness of breath, abdominal pain, focal numbness or weakness. ROS: A 10-point review of systems, other than pertinent positives and negatives as stated per HPI, is otherwise negative Past medical history: No additional pertinent history Past Surgical history: No additional pertinent history Social history: No additional pertinent history Family history: No additional pertinent history PHYSICAL EXAM General: AOx4, GCS = 15, No distress HEENT: dry mucous membrane Neck: supple, no meningismus, no Kernig or Brudzinski Cardiac: S1S2 tachycardia Respiratory: CTAB, no crackles or rales, no wheezing Abdomen: Soft, nontender, no rebound or guarding, nondistended, no pulsatile mass. Back: nontender Musculoskeletal: NVI distally, no deformity Neuro: No focal deficits, CN 2 - 12 WNL. headache Pain Score (Numeric/FACES): 9 - Related Data Allergies Allergy/AdvReac Type Severity Reaction Status Date / Time hydromorphone [From Dilaudid] Allergy Rash Verified 01/16/21 22:11 latex Allergy Blisters Verified 01/16/21 22:11 Latex, Natural Rubber Allergy Blisters Verified 01/16/21 22:11 lorazepam [From Ativan] Allergy Seizure Verified 01/16/21 22:11 phenazopyridine Allergy Vomiting Verified 01/16/21 22:11 [From Pyridium] promethazine Allergy Other Verified 01/16/21 22:11 chloraprep Allergy Blisters Uncoded 01/16/21 22:11 Home Meds: Home Meds . [No Known Home Meds] 11/08/20 [History] Past Medical History - Past Health History Medical/Surgical History: Denies Medical/Surgical History HEENT History: Reports: None Cardiovascular History: Reports: Other (See Below) Other Cardiovascular History: cyantistachardia Respiratory History: Reports: Asthma Gastrointestinal History: Reports: None Genitourinary History: Reports: None Other Genitourinary History: endometriosis, painful bladder syndrome HAND EDGER History: Reports: 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, Other HAND EDGER History: pt reports not being on control Musculoskeletal History: Reports: None Neurological History: Reports: None Psychiatric History: Reports: Anxiety, Depression Endocrine/Metabolic History: Reports: None Hematologic History: Reports: None Immunologic History: Reports: None Oncologic (Cancer) History: Reports: None Dermatologic History: Reports: None - Infectious Disease History Infectious Disease History: Reports: None - Past Surgical History Head Surgeries/Procedures: Reports: None HEENT Surgical History: Reports: None Cardiovascular Surgical History: Reports: None Respiratory Surgical History: Reports: None GI Surgical History: Reports: Other (See Below) Other GI Surgeries/Procedures: Laparoscopy Female Surgical History: Reports: None Endocrine Surgical History: Reports: None Neurological Surgical History: Reports: None Musculoskeletal Surgical History: Reports: None Other Musculoskeletal Surgeries/Procedures:: right wrist surgery Oncologic Surgical History: Reports: None Dermatological Surgical History: Reports: None Social & Family History - Family History Family Medical History: No Pertinent Family History - Caffeine Use Caffeine Use: Reports: Energy Drinks Caffeine Use Comment: 3drinks/day ED ROS GENERAL - Review of Systems Review Of Systems: See Below (see dictation) ED EXAM, GENERAL - Physical Exam Exam: See Below (see dictation) #1 Interpretation EKG Interpretation Comments: Heart rate = 101 bpm, sinus tachycardia, normal QRS interval, no STEMI. EKG and rhythm strip interpreted by me at 2205 Course - Vital Signs Last Recorded V/S: Last Vital Signs Temp 98.7 F 01/16/21 22:05 Pulse 104 H 01/16/21 22:05 Resp 16 01/16/21 22:05 BP 131/84 01/16/21 22:05 Pulse Ox 99 01/16/21 22:05 Orthostatic Blood Pressure [ 123/71 Supine] Orthostatic Blood Pressure [ 120/71 Sitting] Orthostatic Blood Pressure [ 122/70 Standing] - Orders/Labs/Meds Orders: Active Orders 24 hr Category Date Time Status Cardiac Monitoring [RC] . DIRECTED Care 01/16/21 22:06 Active EKG Documentation Completion [RC] STAT Care 01/16/21 22:07 Active Orthostatic Vital Signs [RC] ASDIRECTED Care 01/16/21 22:07 Active Pulse Oximetry [RC] ASDIRECTED Care 01/16/21 22:06 Active Sodium Chloride 0.9% [Saline Flush] Med 01/16/21 22:06 Active 10 ml FLUSH ASDIRECTED PRN Sodium Chloride 0.9% [Saline Flush] Med 01/16/21 22:06 Active 2.5 ml FLUSH ASDIRECTED PRN Saline Lock Insert [OM.PC] Stat Oth 01/16/21 22:07 Ordered Medication Orders Sodium Chloride (Sodium Chloride 0.9% 10 Ml Syringe) 10 ml FLUSH ASDIRECTED PRN PRN Reason: Keep Vein Open Last Admin: 01/17/21 00:43 Dose: 10 ml Documented by: LIZZY Sodium Chloride (Sodium Chloride 0.9% 2.5 Ml Syringe) 2.5 ml FLUSH ASDIRECTED PRN PRN Reason: Keep Vein Open Last Admin: 01/17/21 00:42 Dose: 2.5 ml Documented by: LIZZY Labs: Laboratory Tests 01/16/21 01/16/21 01/16/21 Range/Units 22:05 22:05 22:05 WBC 8.88 (4.0-11.0) K/uL RBC 4.54 (4.30-5.90) M/uL Hgb 14.1 (12.0-16.0) g/dL Hct 40.9 (36.0-46.0) % MCV 90.1 (80.0-98.0) fL MCH 31.1 (27.0-32.0) pg MCHC 34.5 (31.0-37.0) g/dL RDW Std Deviation 42.7 (28.0-62.0) fl RDW Coeff of [place] 13 (11.0-15.0) % Plt Count 329 (150-400) K/uL MPV 10.10 (7.40-12.00) fL Neut % (Auto) 53.1 (48.0-80.0) % Lymph % (Auto) 31.3 (16.0-40.0) % Sabine % (Auto) 6.6 (0.0-15.0) % Eos % (Auto) 8.7 H (0.0-7.0) % Baso % (Auto) 0.3 (0.0-1.5) % Neut # (Auto) 4.7 (1.4-5.7) K/uL Lymph # (Auto) 2.8 H (0.6-2.4) K/uL Sabine # (Auto) 0.6 (0.0-0.8) K/uL Eos # (Auto) 0.8 H (0.0-0.7) K/uL Baso # (Auto) 0.0 (0.0-0.1) K/uL Nucleated RBC % 0.0 /100WBC Nucleated RBCs # 0 K/uL Sodium 139 (136-145) mmol/L Potassium 3.3 L (3.5-5.1) mmol/L Chloride 103 (98-107) mmol/L Carbon Dioxide 25.6 (21.0-32.0) mmol/L BUN 16 (7.0-18.0) mg/dL Creatinine 1.0 (0.6-1.0) mg/dL Est Cr Clr Drug Dosing 66.02 mL/min Estimated GFR (MDRD) > 60.0 ml/min Glucose 128 H (74-106) mg/dL Calcium 9.2 (8.5-10.1) mg/dL Phosphorus 3.3 (2.6-4.7) mg/dL Magnesium 2.2 (1.8-2.4) mg/dL Total Bilirubin 0.1 L (0.2-1.0) mg/dL AST 10 L (15-37) IU/L ALT 18 (14-63) IU/L Alkaline Phosphatase 67 (46-116) U/L Troponin I < 0.050 (0.000-0.056) ng/mL Total Protein 7.9 (6.4-8.2) g/dL Albumin 4.3 (3.4-5.0) g/dL Globulin 3.6 (2.6-4.0) g/dL Albumin/Globulin Ratio 1.2 (0.9-1.6) HCG, Qual NEGATIVE (NEG) Urine Color Urine Appearance Urine pH (5.0-8.0) Ur Specific Ell[place] (1.001-1.035) Urine Protein (NEGATIVE) mg/dL Urine Glucose (UA) (NEGATIVE) mg/dL Urine Ketones (NEGATIVE) mg/dL Urine Occult Blood (NEGATIVE) Urine Nitrite (NEGATIVE) Urine Bilirubin (NEGATIVE) Urine Urobilinogen (<2.0) EU/dL Ur Leukocyte Esterase (NEGATIVE) 01/16/21 Range/Units 22:25 WBC (4.0-11.0) K/uL RBC (4.30-5.90) M/uL Hgb (12.0-16.0) g/dL Hct (36.0-46.0) % MCV (80.0-98.0) fL MCH (27.0-32.0) pg MCHC (31.0-37.0) g/dL RDW Std Deviation (28.0-62.0) fl RDW Coeff of [place] (11.0-15.0) % Plt Count (150-400) K/uL MPV (7.40-12.00) fL Neut % (Auto) (48.0-80.0) % Lymph % (Auto) (16.0-40.0) % Sabine % (Auto) (0.0-15.0) % Eos % (Auto) (0.0-7.0) % Baso % (Auto) (0.0-1.5) % Neut # (Auto) (1.4-5.7) K/uL Lymph # (Auto) (0.6-2.4) K/uL Sabine # (Auto) (0.0-0.8) K/uL Eos # (Auto) (0.0-0.7) K/uL Baso # (Auto) (0.0-0.1) K/uL Nucleated RBC % /100WBC Nucleated RBCs # K/uL Sodium (136-145) mmol/L Potassium (3.5-5.1) mmol/L Chloride (98-107) mmol/L Carbon Dioxide (21.0-32.0) mmol/L BUN (7.0-18.0) mg/dL Creatinine (0.6-1.0) mg/dL Est Cr Clr Drug Dosing mL/min Estimated GFR (MDRD) ml/min Glucose (74-106) mg/dL Calcium (8.5-10.1) mg/dL Phosphorus (2.6-4.7) mg/dL Magnesium (1.8-2.4) mg/dL Total Bilirubin (0.2-1.0) mg/dL AST (15-37) IU/L ALT (14-63) IU/L Alkaline Phosphatase (46-116) U/L Troponin I (0.000-0.056) ng/mL Total Protein (6.4-8.2) g/dL Albumin (3.4-5.0) g/dL Globulin (2.6-4.0) g/dL Albumin/Globulin Ratio (0.9-1.6) HCG, Qual (NEG) Urine Color YELLOW Urine Appearance CLOUDY Urine pH 7.0 (5.0-8.0) Ur Specific Ell[place] 1.025 (1.001-1.035) Urine Protein NEGATIVE (NEGATIVE) mg/dL Urine Glucose (UA) NEGATIVE (NEGATIVE) mg/dL Urine Ketones NEGATIVE (NEGATIVE) mg/dL Urine Occult Blood NEGATIVE (NEGATIVE) Urine Nitrite NEGATIVE (NEGATIVE) Urine Bilirubin NEGATIVE (NEGATIVE) Urine Urobilinogen 0.2 (<2.0) EU/dL Ur Leukocyte Esterase NEGATIVE (NEGATIVE) Meds: Medications Generic Name Dose Route Start Last Admin Trade Name Freq PRN Reason Stop Dose Admin Sodium Chloride 10 ml 01/16/21 22:06 01/17/21 00:43 Sodium Chloride 0.9% 10 Ml Syringe FLUSH 10 ml ASDIRECTED PRN Administration Keep Vein Open Sodium Chloride 2.5 ml 01/16/21 22:06 01/17/21 00:42 Sodium Chloride 0.9% 2.5 Ml Syringe FLUSH 2.5 ml ASDIRECTED PRN Administration Keep Vein Open Discontinued Medications Generic Name Dose Route Start Last Admin Trade Name Freq PRN Reason Stop Dose Admin Acetaminophen 1,000 mg 01/17/21 00:30 01/17/21 00:43 Acetaminophen 500 Mg Tab PO 01/17/21 00:31 1,000 mg ONETIME ONE Administration Lactated Ringer's 1,000 mls @ 999 mls/hr 01/16/21 22:06 01/16/21 22:30 Ringers, Lactated IV 01/16/21 23:06 999 mls/hr .BOLUS ONE Administration Potassium Chloride 40 meq 01/16/21 23:44 01/17/21 00:43 Potassium Chloride 20 Meq Tab.Er PO 01/16/21 23:45 40 meq ONETIME ONE Administration - Re-Assessments/Exams Free Text/Narrative Re-Assessment/Exam: 01/17/21 01:25 After IVF in the ER, the patient improved and is currently stable for discharge. I performed a repeat exam and did not appreciate new abnormal findings. Patient exhibits normal vital signs and has a normal gait on road test. I advised the patient to return to the ER for reevaluation if symptoms worsened, including fever, worsening pain, or any other worrisome symptoms. I instructed the patient to follow up with their PCP within 2-3 days. MEDICAL DECISION MAKING: I reviewed the patients past medical records, lab and radiographic findings. I discussed the case with the patient. My differential diagnosis included: Electrolyte abnormality, hypoglycemia, dehydration. Patient's clinical history is consistent with vasovagal syncope. Potassium = 3.3, repleted in the ED. CT head was performed for injury to her head and did not reveal ICH or fracture. Patient's urine did not demonstrate UTI. She is not . Her EKG did not demonstrate arrhythmia. She has a loop monitor in place followed by an foundry technician. I suspect she is stable for outpatient follow-up. Departure - Departure Time of Disposition: 01:28 Disposition: Home, Self-Care 01 Condition: Good Clinical Impression: Vasovagal syncope, Dehydration, Hypokalemia - Discharge Information *PRESCRIPTION DRUG MONITORING PROGRAM REVIEWED*: Not Applicable *COPY OF PRESCRIPTION DRUG MONITORING REPORT IN PATIENT DAMION: Not Applicable Instructions: Dehydration, Adult, [id number], Syncope, [id number], Hypokalemia Referrals: PCP,None [Primary Care Provider] - Forms: ED Department Discharge Additional Instructions: The need for follow-up, as well as the timing and circumstances, are variable depending upon the specifics of your emergency department visit. If you don't have a primary care physician on staff, we will provide you with a referral. We always advise you to contact your personal physician following an emergency department visit to inform them of the circumstance of the visit and for follow-up with them and/or the need for any referrals to a consulting specialist. The emergency department will also refer you to a specialist when appropriate. This referral assures that you have the opportunity for follow-up care with a specialist. All of these measure are taken in an effort to provide you with optimal care, which includes your follow-up. Under all circumstances we always encourage you to contact your private physician who remains a resource for coordinating your care. When calling for follow-up care, please make the office aware that this follow-up is from your recent emergency room visit. If for any reason you are refused follow-up, please contact the [facility] Emergency Department at and asked to speak to the emergency department charge nurse. If you do not have a primary care doctor, please follow up with the clinics below within 3-5 days. [facility] [address] [place], [place] [id number] [address] [address] Sepsis Event Note (ED) - Evaluation Sepsis Screening Result: No Definite Risk - Focused Exam Vital Signs: Vital Signs Temp Pulse Resp BP Pulse Ox 01/16/21 22:05 98.7 F 104 H 16 131/84 99 - My Orders Last 24 Hours: My Active Orders 01/16/21 22:06 Cardiac Monitoring [RC] . DIRECTED Pulse Oximetry [RC] ASDIRECTED Sodium Chloride 0.9% [Saline Flush] 10 ml FLUSH ASDIRECTED PRN Sodium Chloride 0.9% [Saline Flush] 2.5 ml FLUSH ASDIRECTED PRN 01/16/21 22:07 EKG Documentation Completion [RC] STAT Orthostatic Vital Signs [RC] ASDIRECTED Saline Lock Insert [OM.PC] Stat - Assessment/Plan Last 24 Hours: My Active Orders 01/16/21 22:06 Cardiac Monitoring [RC] . DIRECTED Pulse Oximetry [RC] ASDIRECTED Sodium Chloride 0.9% [Saline Flush] 10 ml FLUSH ASDIRECTED PRN Sodium Chloride 0.9% [Saline Flush] 2.5 ml FLUSH ASDIRECTED PRN 01/16/21 22:07 EKG Documentation Completion [RC] STAT Orthostatic Vital Signs [RC] ASDIRECTED Saline Lock Insert [OM.PC] Stat
[2021-01-16 22:43] LABS: BLOOD UREA NITROGEN,BUN 16 mg/dL (7.0-18.0); CARBON DIOXIDE,CO2 25.6 mmol/L (21.0-32.0); CHLORIDE,CL 103 mmol/L (98-107); GLUCOSE RANDOM 128 mg/dL (74-106); POTASSIUM,K 3.3 mmol/L (3.5-5.1); SODIUM,NA 139 mmol/L (136-145)
[2021-01-16] MEDS ORDERED: Potassium Chloride 20 MEQ Tab.ER PO ONE (23:44)
--- NOTE | 2021-01-17 00:26 | CR ---
INDICATION: Syncope TECHNIQUE: Chest 1 view. COMPARISON: Chest x-ray 12/06/2020 FINDINGS: The heart is normal in size. The pulmonary vasculature is within normal limits. The lungs are clear. There is a stable loop recorder device over the left chest wall. IMPRESSION: No acute process. Dictated by Olga Chin MD @ Jan 17 2021 12:22AM Signed by Dr. Olga Chin @ Jan 17 2021 12:23AM
[2021-01-17] MEDS ORDERED: Acetaminophen 500 MG Tab PO ONE (00:30)
--- NOTE | 2021-01-17 00:53 | CT ---
INDICATION: Trauma with loss of consciousness. TECHNIQUE: CT Head without contrast. COMPARISON: [address] head. FINDINGS: CSF spaces: Within normal limits for age. Brain parenchyma: The do-white differentiation is normal. No sign of mass, hemorrhage, or midline shift. Skull base and calvarium: The visualized paranasal sinuses and mastoid air cells are clear. The visualized orbits are grossly unremarkable. No skull fractures. . IMPRESSION: Unremarkable noncontrast head CT. Please note that all CT scans at this facility use dose modulation, iterative reconstruction, and/or weight-based dosing when appropriate to reduce radiation dose to as low as reasonably achievable. Dictated by Stevie Bolden MD @ Jan 17 2021 12:50AM Signed by Dr. Stevie Bolden @ Jan 17 2021 12:51AM
[2021-01-17 03:24] VITALS: BP 109/58; PULSE 88
== END 2021-01-17 00:50 | disposition home or self-care (01) ==
LOC: MW.ED 22:00
DX: R55 Syncope and collapse (principal); E86.0 Dehydration; E87.6 Hypokalemia; Z91.040 Latex allergy status; Z88.5 Allergy status to narcotic agent; Z88.8 Allergy status to other drugs, medicaments and biological substances; Z88.4 Allergy status to anesthetic agent
CPT/HCPCS: 36415; 70450; 71045; 80053; 81003; 83735; 84100; 84484; 84703; 85025; 93005; 99285; A9270; J7120; 93010; 99284

== ENCOUNTER 2021-02-02 00:46 | Emergency (ER) | payer SELFPAY ==
[2021-02-02] MEDS ORDERED: Ondansetron 4 MG/2 ML SDV IVPUSH ONE (01:04)
[2021-02-02] MEDS ORDERED: Ketorolac 30 MG/ML SDV IVPUSH ONE (01:04)
[2021-02-02] MEDS ORDERED: Sodium Chloride 0.9% 2.5 ML Syringe FLUSH PRN (01:04)
[2021-02-02] MEDS ORDERED: fentaNYL 50 MCG/ML SDV IVPUSH ONE (01:04)
[2021-02-02] MEDS ORDERED: Sodium Chloride 0.9% 10 ML Syringe FLUSH PRN (01:04)
[2021-02-02] MEDS ORDERED: Sodium Chloride 0.9% 1,000 ML IV ONE (01:04)
[2021-02-02 01:54] LABS: BLOOD UREA NITROGEN,BUN 17 mg/dL (7.0-18.0); CARBON DIOXIDE,CO2 25.5 mmol/L (21.0-32.0); CHLORIDE,CL 104 mmol/L (98-107); GLUCOSE RANDOM 112 mg/dL (74-106); LIPASE 67 U/L (73-393); POTASSIUM,K 3.5 mmol/L (3.5-5.1); SODIUM,NA 141 mmol/L (136-145)
--- NOTE | 2021-02-02 02:25 | EDM.PDOC ---
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 Patient denies any recent fevers, shakes, chills, nausea, vomiting, diarrhea, dysuria, frequency, urgency, hematuria, melena, bright red blood per rectum. Patient reports her last menstrual period was approximately 1 to 2 weeks ago. Patient has any vaginal discharge or vaginal pain. Patient has any chest pain or shortness of breath. Patient reports that she took a Suboxone from a friend prior to coming with no relief in her pain or discomfort. Patient reports that she has been taking Midol without any significant discomfort relief. Review of systems: As per history of present illness and below otherwise all systems reviewed and negative. Past medical history: As per history of present illness and as reviewed below otherwise noncontributory. Surgical history: As per history of present illness and as reviewed below otherwise noncontributory. Social history: No reported history of drug or alcohol abuse. Family history: As per history of present illness and as reviewed below otherwise noncontributory. Physical exam: This patient was seen and evaluated during the 2019 SARS-CoV-2 novel coronavirus pandemic period. Community viral transmission is ongoing at time of this encounter and the emergency department is operating under pandemic response procedures. Constitutional: Patient is oriented to person, place, and time. Appears well- developed and well-nourished. No distress. HEENT: Moist mucous membranes Head: Normocephalic and atraumatic Eyes: Right eye exhibits no discharge. Left eye exhibits no discharge. No scleral icterus Neck: Normal range of motion. No tracheal deviation present. Cardiovascular: Normal rate and regular rhythm. Pulmonary: Effort normal, no respiratory distress. Abd: Soft, nondistended, no rebound/guarding, no psoas or obturator signs, no tenderness at Mcberney's point, no Berg's sign. Pt does not present with an exam that would be consistent with an acute surgical abdomen at this time, tenderness palpation left lower quadrant greater than suprapubic. Patient has no tenderness in her right lower quadrant. Musculoskeletal: Normal range of motion Neurologic: Alert and oriented to person, place and time. Skin: [place], warm and dry. Psychiatric: Normal mood and affect. Behavior is normal. Judgment and thought content normal. Nursing note and vital signs have been reviewed Diagnostics: Fentanyl, Toradol, Zofran, NSS x1 L Therapeutics: CBC, CMP, UA all within normal limits. Patient's test is negative. CT of the abdomen pelvis with IV contrast Assessment and plan: 25-year-old female who presents ER today complaining of left lower quadrant abdominal pain and cramping x1 day. Patient's labs are all within normal limits. Patient is clinically hemodynamically stable. Patient feels much improved after treatment with pain medicines and antiemetics here in the ED. Patient will be reevaluated throughout the course of her stay. Currently CT scan of her abdomen pelvis is still pending. 3:15 AM: Patient abdominal exam is unremarkable. Patient reports she feels much better. Patient CT scan reveals no acute pathology. Patient be discharged home with instructions to follow-up with her PCP. During the course of the patient's evaluation for abdominal pain, kidney stone, pancreatitis, cholecystitis, diverticulitis, abdominal aortic aneurysm, myocardial infarction, ischemic bowel, ruptured peptic ulcer, ruptured viscus, UTI,and appendicitis as well as other causes of abdominal pain have been considered. Definitive disposition and diagnosis as appropriate pending reevaluation and review of above. Bilateral Lower Abdominal Pain Score (Numeric/FACES): 8 - Related Data Allergies Allergy/AdvReac Type Severity Reaction Status Date / Time hydromorphone [From Dilaudid] Allergy Rash Verified 02/02/21 01:11 latex Allergy Blisters Verified 02/02/21 01:11 Latex, Natural Rubber Allergy Blisters Verified 02/02/21 01:11 lorazepam [From Ativan] Allergy Seizure Verified 02/02/21 01:11 phenazopyridine Allergy Vomiting Verified 02/02/21 01:11 [From Pyridium] promethazine Allergy Other Verified 02/02/21 01:11 chloraprep Allergy Blisters Uncoded 02/02/21 01:11 Home Meds: Home Meds . [No Known Home Meds] 11/08/20 [History] Past Medical History - Past Health History Medical/Surgical History: Denies Medical/Surgical History HEENT History: Reports: None Cardiovascular History: Reports: Arrhythmia, Other (See Below) Other Cardiovascular History: cyantistachardia, pt reports "unknown or undiagnosed heart condition, fast heart rate" Respiratory History: Reports: Asthma Gastrointestinal History: Reports: None Genitourinary History: Reports: Other (See Below) Other Genitourinary History: endometriosis, painful bladder syndrome FITNESS MANAGEMENT DIRECTOR History: Reports: 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, Other FITNESS MANAGEMENT DIRECTOR History: pt reports Musculoskeletal History: Reports: None Neurological History: Reports: None Psychiatric History: Reports: Anxiety, Depression Endocrine/Metabolic History: Reports: None Hematologic History: Reports: None Immunologic History: Reports: None Oncologic (Cancer) History: Reports: None Dermatologic History: Reports: None - Infectious Disease History Infectious Disease History: Reports: None - Past Surgical History Head Surgeries/Procedures: Reports: None HEENT Surgical History: Reports: None Cardiovascular Surgical History: Reports: None Other Cardiovascular Surgeries/Procedures: implanted loop recorder Respiratory Surgical History: Reports: None GI Surgical History: Reports: Other (See Below) Other GI Surgeries/Procedures: Laparoscopy Female Surgical History: Reports: None Endocrine Surgical History: Reports: None Neurological Surgical History: Reports: None Musculoskeletal Surgical History: Reports: None Other Musculoskeletal Surgeries/Procedures:: right wrist surgery Oncologic Surgical History: Reports: None Dermatological Surgical History: Reports: None Social & Family History - Family History Family Medical History: No Pertinent Family History - Caffeine Use Caffeine Use: Reports: None Caffeine Use Comment: 3drinks/day - Recreational Drug Use Recreational Drug Use: No ED ROS GENERAL - Review of Systems Review Of Systems: See Below ED EXAM, GENERAL - Physical Exam Exam: See Below Course - Vital Signs Last Recorded V/S: Last Vital Signs Temp 97.8 F 02/02/21 00:54 Pulse 111 H 02/02/21 00:54 Resp 16 02/02/21 00:54 BP 119/72 02/02/21 00:54 Pulse Ox 97 02/02/21 00:54 - Orders/Labs/Meds Orders: Active Orders 24 hr Category Date Time Status Sodium Chloride 0.9% [Saline Flush] Med 02/02/21 01:04 Active 10 ml FLUSH ASDIRECTED PRN Sodium Chloride 0.9% [Saline Flush] Med 02/02/21 01:04 Active 2.5 ml FLUSH ASDIRECTED PRN Saline Lock Insert [OM.PC] Stat Oth 02/02/21 01:04 Ordered Medication Orders Sodium Chloride (Sodium Chloride 0.9% 10 Ml Syringe) 10 ml FLUSH ASDIRECTED PRN PRN Reason: Keep Vein Open Last Admin: 02/02/21 01:28 Dose: 10 ml Documented by: AUTUMN Sodium Chloride (Sodium Chloride 0.9% 2.5 Ml Syringe) 2.5 ml FLUSH ASDIRECTED P RN PRN Reason: Keep Vein Open Last Admin: 02/02/21 01:28 Dose: 2.5 ml Documented by: AUTUMN Labs: Laboratory Tests 02/02/21 02/02/21 02/02/21 Range/Units 01:05 01:05 01:30 WBC 10.14 (4.0-11.0) K/uL RBC 4.21 L (4.30-5.90) M/uL Hgb 12.8 (12.0-16.0) g/dL Hct 37.4 (36.0-46.0) % MCV 88.8 (80.0-98.0) fL MCH 30.4 (27.0-32.0) pg MCHC 34.2 (31.0-37.0) g/dL RDW Std Deviation 40.4 (28.0-62.0) fl RDW Coeff of [place] 13 (11.0-15.0) % Plt Count 311 (150-400) K/uL MPV 9.70 (7.40-12.00) fL Neut % (Auto) 52.3 (48.0-80.0) % Lymph % (Auto) 29.9 (16.0-40.0) % [place] % (Auto) 6.1 (0.0-15.0) % Eos % (Auto) 11.5 H (0.0-7.0) % Baso % (Auto) 0.2 (0.0-1.5) % Neut # (Auto) 5.3 (1.4-5.7) K/uL Lymph # (Auto) 3.0 H (0.6-2.4) K/uL [place] # (Auto) 0.6 (0.0-0.8) K/uL Eos # (Auto) 1.2 H (0.0-0.7) K/uL Baso # (Auto) 0.0 (0.0-0.1) K/uL Sodium (136-145) mmol/L Potassium (3.5-5.1) mmol/L Chloride (98-107) mmol/L Carbon Dioxide (21.0-32.0) mmol/L BUN (7.0-18.0) mg/dL Creatinine (0.6-1.0) mg/dL Est Cr Clr Drug Dosing mL/min Estimated GFR (MDRD) ml/min Glucose (74-106) mg/dL Calcium (8.5-10.1) mg/dL Total Bilirubin (0.2-1.0) mg/dL AST (15-37) IU/L ALT (14-63) IU/L Alkaline Phosphatase (46-116) U/L Total Protein (6.4-8.2) g/dL Albumin (3.4-5.0) g/dL Globulin (2.6-4.0) g/dL Albumin/Globulin Ratio (0.9-1.6) Lipase (73-393) U/L Urine Color YELLOW Urine Appearance CLOUDY Urine pH 7.0 (5.0-8.0) Ur Specific [place] 1.025 (1.001-1.035) Urine Protein NEGATIVE (NEGATIVE) mg/dL Urine Glucose (UA) NEGATIVE (NEGATIVE) mg/dL Urine Ketones NEGATIVE (NEGATIVE) mg/dL Urine Occult Blood TRACE-INTACT H (NEGATIVE) Urine Nitrite NEGATIVE (NEGATIVE) Urine Bilirubin NEGATIVE (NEGATIVE) Urine Urobilinogen 0.2 (<2.0) EU/dL Ur Leukocyte Esterase NEGATIVE (NEGATIVE) Urine RBC 1-3 (0-2/HPF) Urine WBC 0-2 (0-5/HPF) Ur Epithelial Cells FEW (NONE-FEW) Amorphous Sediment MODERATE (NEGATIVE) Urine Bacteria 1+ H (NEGATIVE) Urine Mucus LIGHT (NONE-MOD) Urine HCG, Qual NEGATIVE (NEGATIVE) 02/02/21 Range/Units 01:30 WBC (4.0-11.0) K/uL RBC (4.30-5.90) M/uL Hgb (12.0-16.0) g/dL Hct (36.0-46.0) % MCV (80.0-98.0) fL MCH (27.0-32.0) pg MCHC (31.0-37.0) g/dL RDW Std Deviation (28.0-62.0) fl RDW Coeff of [place] (11.0-15.0) % Plt Count (150-400) K/uL MPV (7.40-12.00) fL Neut % (Auto) (48.0-80.0) % Lymph % (Auto) (16.0-40.0) % [place] % (Auto) (0.0-15.0) % Eos % (Auto) (0.0-7.0) % Baso % (Auto) (0.0-1.5) % Neut # (Auto) (1.4-5.7) K/uL Lymph # (Auto) (0.6-2.4) K/uL [place] # (Auto) (0.0-0.8) K/uL Eos # (Auto) (0.0-0.7) K/uL Baso # (Auto) (0.0-0.1) K/uL Sodium 141 (136-145) mmol/L Potassium 3.5 (3.5-5.1) mmol/L Chloride 104 (98-107) mmol/L Carbon Dioxide 25.5 (21.0-32.0) mmol/L BUN 17 (7.0-18.0) mg/dL Creatinine 0.9 (0.6-1.0) mg/dL Est Cr Clr Drug Dosing 94.54 mL/min Estimated GFR (MDRD) > 60.0 ml/min Glucose 112 H (74-106) mg/dL Calcium 8.6 (8.5-10.1) mg/dL Total Bilirubin 0.3 (0.2-1.0) mg/dL AST 14 L (15-37) IU/L ALT 18 (14-63) IU/L Alkaline Phosphatase 60 (46-116) U/L Total Protein 7.2 (6.4-8.2) g/dL Albumin 3.9 (3.4-5.0) g/dL Globulin 3.3 (2.6-4.0) g/dL Albumin/Globulin Ratio 1.2 (0.9-1.6) Lipase 67 L (73-393) U/L Urine Color Urine Appearance Urine pH (5.0-8.0) Ur Specific [place] (1.001-1.035) Urine Protein (NEGATIVE) mg/dL Urine Glucose (UA) (NEGATIVE) mg/dL Urine Ketones (NEGATIVE) mg/dL Urine Occult Blood (NEGATIVE) Urine Nitrite (NEGATIVE) Urine Bilirubin (NEGATIVE) Urine Urobilinogen (<2.0) EU/dL Ur Leukocyte Esterase (NEGATIVE) Urine RBC (0-2/HPF) Urine WBC (0-5/HPF) Ur Epithelial Cells (NONE-FEW) Amorphous Sediment (NEGATIVE) Urine Bacteria (NEGATIVE) Urine Mucus (NONE-MOD) Urine HCG, Qual (NEGATIVE) Meds: Medications Generic Name Dose Route Start Last Admin Trade Name Freq PRN Reason Stop Dose Admin Sodium Chloride 10 ml 02/02/21 01:04 02/02/21 01:28 Sodium Chloride 0.9% 10 Ml Syringe FLUSH 10 ml ASDIRECTED PRN Administration Keep Vein Open Sodium Chloride 2.5 ml 02/02/21 01:04 02/02/21 01:28 Sodium Chloride 0.9% 2.5 Ml Syringe FLUSH 2.5 ml ASDIRECTED PRN Administration Keep Vein Open Discontinued Medications Generic Name Dose Route Start Last Admin Trade Name Freq PRN Reason Stop Dose Admin Fentanyl 50 mcg 02/02/21 01:04 02/02/21 01:27 Fentanyl 50 Mcg/Ml Sdv IVPUSH 02/02/21 01:05 50 mcg ONETIME ONE Administration Sodium Chloride 1,000 mls @ 999 mls/hr 02/02/21 01:04 02/02/21 01:24 Normal Saline IV 02/02/21 02:04 999 mls/hr .Bolus ONE Administration Ketorolac Tromethamine 30 mg 02/02/21 01:04 02/02/21 01:25 Ketorolac 30 Mg/Ml Sdv IVPUSH 02/02/21 01:05 30 mg ONETIME ONE Administration Ondansetron HCl 4 mg 02/02/21 01:04 02/02/21 01:27 Ondansetron 4 Mg/2 Ml Sdv IVPUSH 02/02/21 01:05 4 mg ONETIME ONE Administration Departure - Departure Time of Disposition: 03:19 Disposition: Home, Self-Care 01 Condition: Good Clinical Impression: Abdominal pain Qualifiers: Abdominal location: lower abdomen, unspecified Qualified Code(s): R10.30 - Lower abdominal pain, unspecified - Discharge Information Instructions: Abdominal Pain, Adult, [id number] Referrals: PCP,None [Primary Care Provider] - Forms: ED Department Discharge Additional Instructions: Your seen and evaluated in the ER today secondary to your stomach pain. Your work-up in ER not reveal a specific cause. All your blood tests, urinalysis, and your CAT scan were all normal. Please make an appointment to see your family doctor in the next 1 to 2 days to be reevaluated. The following information is given to patients seen in the emergency department who are being discharged to home. This information is to outline your options for follow-up care. We provide all patients seen in our emergency department with a follow-up referral. The need for follow-up, as well as the timing and circumstances, are variable depending upon the specifics of your emergency department visit. If you don't have a primary care physician on staff, we will provide you with a referral. We always advise you to contact your personal physician following an emergency department visit to inform them of the circumstance of the visit and for follow-up with them and/or the need for any referrals to a consulting specialist. The emergency department will also refer you to a specialist when appropriate. This referral assures that you have the opportunity for follow-up care with a specialist. All of these measure are taken in an effort to provide you with optimal care, which includes your follow-up. Under all circumstances we always encourage you to contact your private physician who remains a resource for coordinating your care. When calling for follow-up care, please make the office aware that this follow-up is from your recent emergency room visit. If for any reason you are refused follow-up, please contact the [facility] Emergency Department at and asked to speak to the emergency department charge nurse. [facility] - Primary Care [address] [place] [id number] [facility] [address] [place] [address] Sepsis Event Note (ED) - Evaluation Sepsis Screening Result: No Definite Risk - Focused Exam Vital Signs: Vital Signs Temp Pulse Resp BP Pulse Ox 02/02/21 00:54 97.8 F 111 H 16 119/72 97 - My Orders Last 24 Hours: My Active Orders 02/02/21 01:04 Sodium Chloride 0.9% [Saline Flush] 10 ml FLUSH ASDIRECTED PRN Sodium Chloride 0.9% [Saline Flush] 2.5 ml FLUSH ASDIRECTED PRN Saline Lock Insert [OM.PC] Stat - Assessment/Plan Last 24 Hours: My Active Orders 02/02/21 01:04 Sodium Chloride 0.9% [Saline Flush] 10 ml FLUSH ASDIRECTED PRN Sodium Chloride 0.9% [Saline Flush] 2.5 ml FLUSH ASDIRECTED PRN Saline Lock Insert [OM.PC] Stat
--- NOTE | 2021-02-02 02:57 | CT ---
INDICATION: Lower abdominal pain TECHNIQUE: CT abdomen and pelvis acquired with 100 cc Isovue 370 IV contrast. COMPARISON: December 13, 2017 FINDINGS: Lower chest: Unremarkable. Liver: Unremarkable. Spleen: Unremarkable. Pancreas: Unremarkable. Gallbladder and bile ducts: Unremarkable. Adrenal glands: Unremarkable. Kidneys: Simple cyst on the left kidney. GI tract: The appendix is not visualized. Remainder of the bowel is unremarkable. Vascular structures: Unremarkable. Lymph nodes: Unremarkable. Pelvic Organs: Small amount of simple free fluid in the pelvis. 1.0 cm cyst on the left ovary, likely physiologic. Bones: Unremarkable for age. IMPRESSION: The appendix is not seen. Small amount of simple free fluid in the pelvis. Remainder of the exam is unremarkable. Please note that all CT scans at this facility use dose modulation, iterative reconstruction, and/or weight-based dosing when appropriate to reduce radiation dose to as low as reasonably achievable. Dictated by Mitzi Christine MD @ 02/02/2021 2:56:[address] Mitzi Christine @ Feb 02 2021 2:56AM
[2021-02-02 03:28] VITALS: BP 114/42; PULSE 96
== END 2021-02-02 03:31 | disposition home or self-care (01) ==
LOC: MW.ED 00:46
DX: R10.31 Right lower quadrant pain (principal); R10.32 Left lower quadrant pain; Z91.040 Latex allergy status; Z88.5 Allergy status to narcotic agent
CPT/HCPCS: 36415; 74177; 80053; 81001; 81025; 83690; 85025; 96374; 96375; 99284; J1885; J2405; J3010; J7030

== ENCOUNTER 2021-02-21 13:43 | Emergency (ER) | payer MEDICAID ==
[2021-02-21] MEDS ORDERED: Sodium Chloride 0.9% 2.5 ML Syringe FLUSH PRN (13:48)
[2021-02-21] MEDS ORDERED: Sodium Chloride 0.9% 1,000 ML IV ONE (13:48)
[2021-02-21] MEDS ORDERED: Sodium Chloride 0.9% 10 ML Syringe FLUSH PRN (13:48)
--- NOTE | 2021-02-21 14:18 | EDM.PDOC ---
ED HPI GENERAL MEDICAL PROBLEM - General Chief Complaint: Chest Pain Stated Complaint: CHEST PAIN Time Seen by Provider: 02/21/21 13:47 Source of Information: Reports: Patient History Limitations: Reports: No Limitations - History of Present Illness INITIAL COMMENTS - FREE TEXT/NARRATIVE: HISTORY AND PHYSICAL: History of present illness: Patient is a 25-year-old female who presents to the emergency room with complaints of midsternal chest pain that radiates into her left shoulder. She states this occurred approximately 1 hour prior to arrival and has been constant since. Nothing makes the pain better or worse. She states she feels diaphoretic which has now resolved. Declines concern for COVID-19, states over the past few months she has had at least "7 swabs". [employer] internal lunchroom monitor was placed Patient denies any fever, chills, headache, change in vision, syncope or near syncope. Denies any back pain, shortness of breath or cough. Denies any abdomin al pain, nausea, vomiting, diarrhea, constipation or dysuria. Has not noted any blood in urine or stool. Patient has been eating and drinking appropriately. Review of systems: As per history of present illness and below otherwise all systems reviewed and negative. Past medical history: As per history of present illness and as reviewed below otherwise noncontributory. Surgical history: As per history of present illness and as reviewed below otherwise noncontributory. Social history: See social history for further information Family history: As per history of present illness and as reviewed below otherwise noncontributory. Physical exam: General: Well developed and well nourished. Alert and orientated x 3. Nontoxic in appearance and in no acute distress. Vital signs are stable and have been reviewed by me. Nursing notes were reviewed. HEENT: Atraumatic, normocephalic, pupils equal and reactive bilaterally, negative for conjunctival pallor or scleral icterus, mucous membranes moist, TMs normal bilaterally, throat clear, neck supple, nontender, trachea midline. No drooling or trismus noted. No meningeal signs. No hot potato voice noted. Lungs: Clear to auscultation bilaterally. No wheezes, rales, or rhonchi. Chest nontender. Normal work of breathing, no accessory muscles used. Heart: S1S2, regular rate and rhythm without overt murmur, gallops, or rubs. No JVD. No peripheral edema Abdomen: Soft, nondistended, nontender. Normoactive bowel sounds. Negative for masses or costovertebral tenderness. Skin: Intact, warm, dry. No lesions or rashes noted. Hematologic: No petechiae or purpra. Mucosa appropriate color and normal nail bed color and refill. Extremities: Atraumatic, moves all extremities per self without difficulty or deficits, negative for cords or calf pain. Neurovascular unremarkable. Neuro: Awake, alert, oriented. Cranial nerves II through XII unremarkable. Cerebellum unremarkable. Motor and sensory unremarkable throughout. Exam nonfocal. Psychiatric: Mood and affect are appropriate. Normal thought process. Answering questions appropriately. Notes: *This patient was seen and evaluated during the 2019 SARS-CoV-2 novel coronavirus pandemic period. Community viral transmission is ongoing at time of this encounter and the emergency department is operating under pandemic response procedures. Lab work is unremarkable. EKG shows no significant findings. Chest x-ray is unchanged, unremarkable. Vital signs are stable. The [employer] device was interrogated. Report demonstrates no abnormalities and device is functioning appropriately. The time she has activated the device there has been no arrhythmias or abnormal findings. I have talked with the patient about today's findings, in addition to providing specific details for plan of care. Reassessment at the time of disposition demonstrates that the patient is in no acute distress. The patient is stable for discharge, counseling was provided and we discussed in great detail signs and symptoms that would prompt them to return to the Emergency Department. Medication, follow up and supportive care measures were reviewed and discussed. Voices understanding and is agreeable to plan of care. Denies any further questions or concerns at this time. Diagnostics: CBC, CMP, Troponin, EKG, CXR, Therapeutics: Toradol Prescription: None Impression: Chest pain, nonspecific Plan: 1. You were evaluated today on an emergent basis. Your lab work, chest X-ray, EKG are all unremarkable. 2. You can alternate Tylenol and ibuprofen as needed for pain and fever management. 3. We encourage you to follow up with your primary care provider and/or recommended specialist in the next few days for re-evaluation and further care/management. 4. If your symptoms should worsen, new symptoms develop or any of the signs and symptoms we discussed should arise please return to the emergency room or call 911 (if needed). Definitive disposition and diagnosis as appropriate pending reevaluation and review of above. chest Pain Score (Numeric/FACES): 6 - Related Data Allergies Allergy/AdvReac Type Severity Reaction Status Date / Time hydromorphone [From Dilaudid] Allergy Rash Verified 02/21/21 14:06 latex Allergy Blisters Verified 02/21/21 14:06 Latex, Natural Rubber Allergy Blisters Verified 02/21/21 14:06 lorazepam [From Ativan] Allergy Seizure Verified 02/21/21 14:06 phenazopyridine Allergy Vomiting Verified 02/21/21 14:06 [From Pyridium] promethazine Allergy Other Verified 02/21/21 14:06 chloraprep Allergy Blisters Uncoded 02/21/21 14:06 Home Meds: Home Meds . [No Known Home Meds] 11/08/20 [History] Past Medical History - Past Health History Medical/Surgical History: Denies Medical/Surgical History HEENT History: Reports: None Cardiovascular History: Reports: Arrhythmia, Other (See Below) Other Cardiovascular History: cyantistachardia, pt reports "unknown or undiagnosed heart condition, fast heart rate" Respiratory History: Reports: Asthma Gastrointestinal History: Reports: None Genitourinary History: Reports: Other (See Below) Other Genitourinary History: endometriosis, painful bladder syndrome [employer] History: Reports: 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, Other [employer] History: pt reports Musculoskeletal History: Reports: None Neurological History: Reports: None Psychiatric History: Reports: Anxiety, Depression Endocrine/Metabolic History: Reports: None Hematologic History: Reports: None Immunologic History: Reports: None Oncologic (Cancer) History: Reports: None Dermatologic History: Reports: None - Infectious Disease History Infectious Disease History: Reports: None - Past Surgical History Head Surgeries/Procedures: Reports: None HEENT Surgical History: Reports: None Cardiovascular Surgical History: Reports: None Other Cardiovascular Surgeries/Procedures: implanted loop recorder Respiratory Surgical History: Reports: None GI Surgical History: Reports: Other (See Below) Other GI Surgeries/Procedures: Laparoscopy Female Surgical History: Reports: None Endocrine Surgical History: Reports: None Neurological Surgical History: Reports: None Musculoskeletal Surgical History: Reports: None Other Musculoskeletal Surgeries/Procedures:: right wrist surgery Oncologic Surgical History: Reports: None Dermatological Surgical History: Reports: None Social & Family History - Family History Family Medical History: No Pertinent Family History - Caffeine Use Caffeine Use: Reports: None Caffeine Use Comment: 3drinks/day ED ROS GENERAL - Review of Systems Review Of Systems: Comprehensive ROS is negative, except as noted in HPI. ED EXAM, GENERAL - Physical Exam Exam: See Below (See dictation) Course - Vital Signs Last Recorded V/S: Last Vital Signs Temp 97.8 F 02/21/21 13:48 Pulse 104 H 02/21/21 13:48 Resp 18 02/21/21 13:48 BP 123/65 02/21/21 13:48 Pulse Ox 99 02/21/21 13:48 - Orders/Labs/Meds Orders: Active Orders 24 hr Category Date Time Status Communication Order [RC] STAT Care 02/21/21 15:36 Active EKG Documentation Completion [RC] STAT Care 02/21/21 13:48 Active Sodium Chloride 0.9% [Saline Flush] Med 02/21/21 13:48 Active 10 ml FLUSH ASDIRECTED PRN Sodium Chloride 0.9% [Saline Flush] Med 02/21/21 13:48 Active 2.5 ml FLUSH ASDIRECTED PRN Saline Lock Insert [OM.PC] Stat Oth 02/21/21 13:48 Ordered Medication Orders Sodium Chloride (Sodium Chloride 0.9% 10 Ml Syringe) 10 ml FLUSH ASDIRECTED PRN PRN Reason: Keep Vein Open Last Admin: 02/21/21 14:05 Dose: 10 ml Documented by: KRISTI Sodium Chloride (Sodium Chloride 0.9% 2.5 Ml Syringe) 2.5 ml FLUSH ASDIRECTED PRN PRN Reason: Keep Vein Open Last Admin: 02/21/21 14:05 Dose: 2.5 ml Documented by: KRISTI Labs: Laboratory Tests 02/21/21 02/21/21 02/21/21 Range/Units 13:54 13:54 14:52 WBC 6.31 (4.0-11.0) K/uL RBC 4.13 L (4.30-5.90) M/uL Hgb 12.8 (12.0-16.0) g/dL Hct 37.2 (36.0-46.0) % MCV 90.1 (80.0-98.0) fL MCH 31.0 (27.0-32.0) pg MCHC 34.4 (31.0-37.0) g/dL RDW Std Deviation 44.1 (28.0-62.0) fl RDW Coeff of [place] 13 (11.0-15.0) % Plt Count 277 (150-400) K/uL MPV 9.70 (7.40-12.00) fL Neut % (Auto) 52.7 (48.0-80.0) % Lymph % (Auto) 36.0 (16.0-40.0) % [place] % (Auto) 5.9 (0.0-15.0) % Eos % (Auto) 4.9 (0.0-7.0) % Baso % (Auto) 0.5 (0.0-1.5) % Neut # (Auto) 3.3 (1.4-5.7) K/uL Lymph # (Auto) 2.3 (0.6-2.4) K/uL [place] # (Auto) 0.4 (0.0-0.8) K/uL Eos # (Auto) 0.3 (0.0-0.7) K/uL Baso # (Auto) 0.0 (0.0-0.1) K/uL Nucleated RBC % 0.0 /100WBC Nucleated RBCs # 0 K/uL Sodium 139 (136-145) mmol/L Potassium 3.7 (3.5-5.1) mmol/L Chloride 104 (98-107) mmol/L Carbon Dioxide 26.0 (21.0-32.0) mmol/L BUN 15 (7.0-18.0) mg/dL Creatinine 0.9 (0.6-1.0) mg/dL Est Cr Clr Drug Dosing TNP Estimated GFR (MDRD) > 60.0 ml/min Glucose 114 H (74-106) mg/dL Calcium 8.7 (8.5-10.1) mg/dL Magnesium 2.0 (1.8-2.4) mg/dL Total Bilirubin 0.5 (0.2-1.0) mg/dL AST 15 (15-37) IU/L ALT 15 (14-63) IU/L Alkaline Phosphatase 58 (46-116) U/L Troponin I < 0.050 (0.000-0.056) ng/mL Total Protein 7.1 (6.4-8.2) g/dL Albumin 3.9 (3.4-5.0) g/dL Globulin 3.2 (2.6-4.0) g/dL Albumin/Globulin Ratio 1.2 (0.9-1.6) Urine Color YELLOW Urine Appearance CLEAR Urine pH 7.0 (5.0-8.0) Ur Specific Funk 1.020 (1.001-1.035) Urine Protein NEGATIVE (NEGATIVE) mg/dL Urine Glucose (UA) NEGATIVE (NEGATIVE) mg/dL Urine Ketones NEGATIVE (NEGATIVE) mg/dL Urine Occult Blood TRACE-INTACT H (NEGATIVE) Urine Nitrite NEGATIVE (NEGATIVE) Urine Bilirubin NEGATIVE (NEGATIVE) Urine Urobilinogen 0.2 (<2.0) EU/dL Ur Leukocyte Esterase NEGATIVE (NEGATIVE) Urine RBC 0-2 (0-2/HPF) Urine WBC 0-2 (0-5/HPF) Ur Epithelial Cells MODERATE (NONE-FEW) Urine Bacteria RARE (NEGATIVE) Urine HCG, Qual (NEGATIVE) 02/21/21 Range/Units 14:52 WBC (4.0-11.0) K/uL RBC (4.30-5.90) M/uL Hgb (12.0-16.0) g/dL Hct (36.0-46.0) % MCV (80.0-98.0) fL MCH (27.0-32.0) pg MCHC (31.0-37.0) g/dL RDW Std Deviation (28.0-62.0) fl RDW Coeff of [place] (11.0-15.0) % Plt Count (150-400) K/uL MPV (7.40-12.00) fL Neut % (Auto) (48.0-80.0) % Lymph % (Auto) (16.0-40.0) % [place] % (Auto) (0.0-15.0) % Eos % (Auto) (0.0-7.0) % Baso % (Auto) (0.0-1.5) % Neut # (Auto) (1.4-5.7) K/uL Lymph # (Auto) (0.6-2.4) K/uL [place] # (Auto) (0.0-0.8) K/uL Eos # (Auto) (0.0-0.7) K/uL Baso # (Auto) (0.0-0.1) K/uL Nucleated RBC % /100WBC Nucleated RBCs # K/uL Sodium (136-145) mmol/L Potassium (3.5-5.1) mmol/L Chloride (98-107) mmol/L Carbon Dioxide (21.0-32.0) mmol/L BUN (7.0-18.0) mg/dL Creatinine (0.6-1.0) mg/dL Est Cr Clr Drug Dosing Estimated GFR (MDRD) ml/min Glucose (74-106) mg/dL Calcium (8.5-10.1) mg/dL Magnesium (1.8-2.4) mg/dL Total Bilirubin (0.2-1.0) mg/dL AST (15-37) IU/L ALT (14-63) IU/L Alkaline Phosphatase (46-116) U/L Troponin I (0.000-0.056) ng/mL Total Protein (6.4-8.2) g/dL Albumin (3.4-5.0) g/dL Globulin (2.6-4.0) g/dL Albumin/Globulin Ratio (0.9-1.6) Urine Color Urine Appearance Urine pH (5.0-8.0) Ur Specific [place] (1.001-1.035) Urine Protein (NEGATIVE) mg/dL Urine Glucose (UA) (NEGATIVE) mg/dL Urine Ketones (NEGATIVE) mg/dL Urine Occult Blood (NEGATIVE) Urine Nitrite (NEGATIVE) Urine Bilirubin (NEGATIVE) Urine Urobilinogen (<2.0) EU/dL Ur Leukocyte Esterase (NEGATIVE) Urine RBC (0-2/HPF) Urine WBC (0-5/HPF) Ur Epithelial Cells (NONE-FEW) Urine Bacteria (NEGATIVE) Urine HCG, Qual NEGATIVE (NEGATIVE) Meds: Medications Generic Name Dose Route Start Last Admin Trade Name Freq PRN Reason Stop Dose Admin Sodium Chloride 10 ml 02/21/21 13:48 02/21/21 14:05 Sodium Chloride 0.9% 10 Ml Syringe FLUSH 10 ml ASDIRECTED PRN Administration Keep Vein Open Sodium Chloride 2.5 ml 02/21/21 13:48 02/21/21 14:05 Sodium Chloride 0.9% 2.5 Ml Syringe FLUSH 2.5 ml ASDIRECTED PRN Administration Keep Vein Open Discontinued Medications Generic Name Dose Route Start Last Admin Trade Name Freq PRN Reason Stop Dose Admin Sodium Chloride 1,000 mls @ 999 mls/hr 02/21/21 13:48 02/21/21 14:05 Normal Saline IV 02/21/21 14:48 999 mls/hr STAT ONE Administration Ketorolac Tromethamine 30 mg 02/21/21 14:19 02/21/21 14:24 Ketorolac 30 Mg/Ml Sdv IVPUSH 02/21/21 14:20 30 mg ONETIME ONE Administration Departure - Departure Time of Disposition: 16:13 Disposition: Home, Self-Care 01 Clinical Impression: Chest pain Qualifiers: Chest pain type: unspecified Qualified Code(s): R07.9 - Chest pain, unspecified Instructions: Nonspecific Chest Pain, Adult, [id number] Referrals: PCP,None [Primary Care Provider] - Forms: ED Department Discharge Additional Instructions: The following information is given to patients seen in the emergency department who are being discharged to home. This information is to outline your options for follow-up care. We provide all patients seen in our emergency department with a follow-up referral. The need for follow-up, as well as the timing and circumstances, are variable depending upon the specifics of your emergency department visit. If you don't have a primary care physician on staff, we will provide you with a referral. We always advise you to contact your personal physician following an emergency department visit to inform them of the circumstance of the visit and for follow-up with them and/or the need for any referrals to a consulting specialist. The emergency department will also refer you to a specialist when appropriate. This referral assures that you have the opportunity for follow-up care with a specialist. All of these measure are taken in an effort to provide you with optimal care, which includes your follow-up. Under all circumstances we always encourage you to contact your private physician who remains a resource for coordinating your care. When calling for follow-up care, please make the office aware that this follow-up is from your recent emergency room visit. If for any reason you are refused follow-up, please contact the [facility] Emergency Department at and asked to speak to the emergency department charge nurse. [facility] [address] [place] [address] [facility] [address] [place] [address] Thank you for choosing the [facility] emergency department in [place] for your medical needs today. It was a pleasure caring for you. Today you were seen in the emergency department for chest pain. 1. You were evaluated today on an emergent basis. Your lab work, chest X-ray, EKG are all unremarkable. 2. You can alternate Tylenol and ibuprofen as needed for pain and fever management. 3. We encourage you to follow up with your primary care provider and/or recommended specialist in the next few days for re-evaluation and further care/management. 4. If your symptoms should worsen, new symptoms develop or any of the signs and symptoms we discussed should arise please return to the emergency room or call 911 (if needed). Sepsis Event Note (ED) - Evaluation Sepsis Screening Result: No Definite Risk - Focused Exam Vital Signs: Vital Signs Temp Pulse Resp BP Pulse Ox 02/21/21 13:48 97.8 F 104 H 18 123/65 99 - My Orders Last 24 Hours: My Active Orders 02/21/21 13:48 EKG Documentation Completion [RC] STAT Sodium Chloride 0.9% [Saline Flush] 10 ml FLUSH ASDIRECTED PRN Sodium Chloride 0.9% [Saline Flush] 2.5 ml FLUSH ASDIRECTED PRN Saline Lock Insert [OM.PC] Stat 02/21/21 15:36 Communication Order [RC] STAT - Assessment/Plan Last 24 Hours: My Active Orders 02/21/21 13:48 EKG Documentation Completion [RC] STAT Sodium Chloride 0.9% [Saline Flush] 10 ml FLUSH ASDIRECTED PRN Sodium Chloride 0.9% [Saline Flush] 2.5 ml FLUSH ASDIRECTED PRN Saline Lock Insert [OM.PC] Stat 02/21/21 15:36 Communication Order [RC] STAT
[2021-02-21] MEDS ORDERED: Ketorolac 30 MG/ML SDV IVPUSH ONE (14:19)
[2021-02-21 14:41] LABS: BLOOD UREA NITROGEN,BUN 15 mg/dL (7.0-18.0); CHLORIDE,CL 104 mmol/L (98-107); GLUCOSE RANDOM 114 mg/dL (74-106); POTASSIUM,K 3.7 mmol/L (3.5-5.1); SODIUM,NA 139 mmol/L (136-145)
--- NOTE | 2021-02-21 14:55 | PCM.EKG ---
#1 Interpretation EKG Date: 02/21/21 Time: 13:52 Rhythm: NSR Rate (Beats/Min): 86 [place]: Normal P-Wave: Present QRS: Normal ST-T: Normal QT: Normal Comparison: No Change (01/06/21) EKG Interpretation Comments: Sinus Rhythm
--- NOTE | 2021-02-21 15:57 | CR ---
INDICATION: Chest pain. TECHNIQUE: AP chest. COMPARISON: January 26, 2021. FINDINGS: Clear lungs. Normal heart size and pulmonary vascularity. Normal included skeleton. Cardiac event recorder projected over the left hemithorax. IMPRESSION: No acute cardiopulmonary process. No change. Dictated by Robert Cedillo MD @ 02/21/2021 3:55:[address] Robert Cedillo @ Feb 21 2021 3:55PM
[2021-02-21 16:21] VITALS: BP 104/62; PULSE 73
== END 2021-02-21 16:22 | disposition home or self-care (01) ==
LOC: MW.ED 13:43
DX: R07.2 Precordial pain (principal); Z91.040 Latex allergy status; Z88.5 Allergy status to narcotic agent; Z88.8 Allergy status to other drugs, medicaments and biological substances
CPT/HCPCS: 71045; 80053; 81001; 81025; 83735; 84484; 85025; 93005; 96374; 99285; J1885; J7030; 93010; 99284

== ENCOUNTER 2021-03-15 23:06 | Emergency (ER) | payer SELFPAY ==
--- NOTE | 2021-03-15 23:35 | EDM.PDOC ---
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 Pat ney states her last period was February 15 and took some test at home as it was positive. She has she saw [facility] today and her beta was low and he wanted to come back tomorrow to have her beta redrawn. She was told that if she had any increased bleeding to come to the ED. They states that while in the shower she noticed some blood coming out and saw some small clots passed as well denies any tissue passed. Patient states that she does feel tired and weak and her boyfriend thinks she may be paler than normal. Patient not having nausea or vomiting no other complaints currently. abdominal Pain Score (Numeric/FACES): 5 - Related Data Allergies Allergy/AdvReac Type Severity Reaction Status Date / Time hydromorphone [From Dilaudid] Allergy Rash Verified 03/15/21 23:26 latex Allergy Blisters Verified 03/15/21 23:26 Latex, Natural Rubber Allergy Blisters Verified 03/15/21 23:26 lorazepam [From Ativan] Allergy Seizure Verified 03/15/21 23:26 phenazopyridine Allergy Vomiting Verified 03/15/21 23:26 [From Pyridium] promethazine Allergy Other Verified 03/15/21 23:26 chloraprep Allergy Blisters Uncoded 03/15/21 23:26 Home Meds: Home Meds . 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, Other 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 SERVICE ENGINEER History: pt reports Musculoskeletal History: Reports: None Neurological History: Reports: None Psychiatric History: Reports: Anxiety, Depression Endocrine/Metabolic History: Reports: None Hematologic History: Reports: None Immunologic History: Reports: None Oncologic (Cancer) History: Reports: None Dermatologic History: Reports: None - Infectious Disease History Infectious Disease History: Reports: None - Past Surgical History Head Surgeries/Procedures: Reports: None HEENT Surgical History: Reports: None Cardiovascular Surgical History: Reports: None Other Cardiovascular Surgeries/Procedures: implanted loop recorder Respiratory Surgical History: Reports: None GI Surgical History: Reports: Other (See Below) Other GI Surgeries/Procedures: Laparoscopy Female Surgical History: Reports: None Endocrine Surgical History: Reports: None Neurological Surgical History: Reports: None Musculoskeletal Surgical History: Reports: None Other Musculoskeletal Surgeries/Procedures:: right wrist surgery Oncologic Surgical History: Reports: None Dermatological Surgical History: Reports: None Social & Family History - Family History Family Medical History: No Pertinent Family History - Caffeine Use Caffeine Use: Reports: None Caffeine Use Comment: 3drinks/day ED ROS GENERAL - Review of Systems Review Of Systems: See Below Constitutional: Reports: No Symptoms HEENT: Reports: No Symptoms Respiratory: Reports: No Symptoms Cardiovascular: Reports: No Symptoms Endocrine: Reports: No Symptoms GI/Abdominal: Reports: No Symptoms : Reports: Irregular Menses Musculoskeletal: Reports: No Symptoms Skin: Reports: No Symptoms Neurological: Reports: No Symptoms Psychiatric: Reports: No Symptoms Hematologic/Lymphatic: Reports: No Symptoms Immunologic: Reports: No Symptoms ED EXAM, GI/ABD - Physical Exam Exam: See Below Exam Limited By: No Limitations General Appearance: Alert, WD/WN, No Apparent Distress Respiratory/Chest: No Respiratory Distress, Lungs Clear Cardiovascular: Normal Peripheral Pulses, Regular Rate, Rhythm GI/Abdominal Exam: Normal Bowel Sounds, Soft, Non-Tender Neurological: Alert, Oriented Course - Vital Signs Last Recorded V/S: Last Vital Signs Temp 97.7 F 03/15/21 23:22 Pulse 95 03/15/21 23:22 Resp 14 03/15/21 23:22 BP 129/78 03/15/21 23:22 Pulse Ox 98 03/15/21 23:22 - Orders/Labs/Meds Labs: Laboratory Tests 03/15/21 03/15/21 03/15/21 Range/Units 23:16 23:16 23:41 WBC 6.61 (4.0-11.0) K/uL RBC 4.01 L (4.30-5.90) M/uL Hgb 12.5 (12.0-16.0) g/dL Hct 36.0 (36.0-46.0) % MCV 89.8 (80.0-98.0) fL MCH 31.2 (27.0-32.0) pg MCHC 34.7 (31.0-37.0) g/dL RDW Std Deviation 43.3 (28.0-62.0) fl RDW Coeff of [place] 13 (11.0-15.0) % Plt Count 267 (150-400) K/uL MPV 9.50 (7.40-12.00) fL Neut % (Auto) 49.6 (48.0-80.0) % Lymph % (Auto) 38.6 (16.0-40.0) % [place] % (Auto) 7.0 (0.0-15.0) % Eos % (Auto) 4.5 (0.0-7.0) % Baso % (Auto) 0.3 (0.0-1.5) % Neut # (Auto) 3.3 (1.4-5.7) K/uL Lymph # (Auto) 2.6 H (0.6-2.4) K/uL [place] # (Auto) 0.5 (0.0-0.8) K/uL Eos # (Auto) 0.3 (0.0-0.7) K/uL Baso # (Auto) 0.0 (0.0-0.1) K/uL Nucleated RBC % 0.0 /100WBC Nucleated RBCs # 0 K/uL INR APTT (18.6-31.3) SEC Sodium (136-145) mmol/L Potassium (3.5-5.1) mmol/L Chloride (98-107) mmol/L Carbon Dioxide (21.0-32.0) mmol/L BUN (7.0-18.0) mg/dL Creatinine (0.6-1.0) mg/dL Est Cr Clr Drug Dosing mL/min Estimated GFR (MDRD) ml/min Glucose (74-106) mg/dL Calcium (8.5-10.1) mg/dL HCG, Quant mIU/mL Urine Color YELLOW Urine Appearance CLOUDY Urine pH 6.0 (5.0-8.0) Ur Specific [place] 1.025 (1.001-1.035) Urine Protein NEGATIVE (NEGATIVE) mg/dL Urine Glucose (UA) NEGATIVE (NEGATIVE) mg/dL Urine Ketones NEGATIVE (NEGATIVE) mg/dL Urine Occult Blood LARGE H (NEGATIVE) Urine Nitrite NEGATIVE (NEGATIVE) Urine Bilirubin NEGATIVE (NEGATIVE) Urine Urobilinogen 0.2 (<2.0) EU/dL Ur Leukocyte Esterase NEGATIVE (NEGATIVE) Urine RBC TOO NUMEROUS TO CT H (0-2/HPF) Urine WBC 0-3 (0-5/HPF) Ur Epithelial Cells FEW (NONE-FEW) Urine Bacteria FEW (NEGATIVE) Urine Mucus LIGHT (NONE-MOD) Urine HCG, Qual NEGATIVE (NEGATIVE) 03/15/21 03/15/21 Range/Units 23:41 23:41 WBC (4.0-11.0) K/uL RBC (4.30-5.90) M/uL Hgb (12.0-16.0) g/dL Hct (36.0-46.0) % MCV (80.0-98.0) fL MCH (27.0-32.0) pg MCHC (31.0-37.0) g/dL RDW Std Deviation (28.0-62.0) fl RDW Coeff of [place] (11.0-15.0) % Plt Count (150-400) K/uL MPV (7.40-12.00) fL Neut % (Auto) (48.0-80.0) % Lymph % (Auto) (16.0-40.0) % [place] % (Auto) (0.0-15.0) % Eos % (Auto) (0.0-7.0) % Baso % (Auto) (0.0-1.5) % Neut # (Auto) (1.4-5.7) K/uL Lymph # (Auto) (0.6-2.4) K/uL [place] # (Auto) (0.0-0.8) K/uL Eos # (Auto) (0.0-0.7) K/uL Baso # (Auto) (0.0-0.1) K/uL Nucleated RBC % /100WBC Nucleated RBCs # K/uL INR 0.99 APTT 24.7 (18.6-31.3) SEC Sodium 141 (136-145) mmol/L Potassium 3.7 (3.5-5.1) mmol/L Chloride 107 (98-107) mmol/L Carbon Dioxide 24.8 (21.0-32.0) mmol/L BUN 21 H (7.0-18.0) mg/dL Creatinine 0.9 (0.6-1.0) mg/dL Est Cr Clr Drug Dosing 94.54 mL/min Estimated GFR (MDRD) > 60.0 ml/min Glucose 104 (74-106) mg/dL Calcium 9.0 (8.5-10.1) mg/dL HCG, Quant < 1.0 mIU/mL Urine Color Urine Appearance Urine pH (5.0-8.0) Ur Specific [place] (1.001-1.035) Urine Protein (NEGATIVE) mg/dL Urine Glucose (UA) (NEGATIVE) mg/dL Urine Ketones (NEGATIVE) mg/dL Urine Occult Blood (NEGATIVE) Urine Nitrite (NEGATIVE) Urine Bilirubin (NEGATIVE) Urine Urobilinogen (<2.0) EU/dL Ur Leukocyte Esterase (NEGATIVE) Urine RBC (0-2/HPF) Urine WBC (0-5/HPF) Ur Epithelial Cells (NONE-FEW) Urine Bacteria (NEGATIVE) Urine Mucus (NONE-MOD) Urine HCG, Qual (NEGATIVE) Meds: Medications Discontinued Medications Generic Name Dose Route Start Last Admin Trade Name Freq PRN Reason Stop Dose Admin Ondansetron HCl 4 mg 03/15/21 23:54 03/16/21 00:01 Ondansetron 4 Mg/2 Ml Sdv IVPUSH 03/15/21 23:55 4 mg ONETIME ONE Administration - Re-Assessments/Exams Free Text/Narrative Re-Assessment/Exam: 03/16/21 00:23 Patient urine is negative we also did a quant that is also negative. Patient hemoglobin is stable she has been hemodynamically stable here. Patient was seen by [facility] 2 days ago scheduled see him tomorrow. We will have patient follow-up with [facility]. Patient will be discharged home. Departure - Departure Time of Disposition: 00:24 Disposition: Home, Self-Care 01 Condition: Good Clinical Impression: Irregular menstrual bleeding - Discharge Information *PRESCRIPTION DRUG MONITORING PROGRAM REVIEWED*: Not Applicable *COPY OF PRESCRIPTION DRUG MONITORING REPORT IN PATIENT DAMION: Not Applicable Instructions: Dysmenorrhea, [id number] Referrals: PCP,None [Primary Care Provider] - Forms: ED Department Discharge Additional Instructions: The following information is given to patients seen in the emergency department who are being discharged to home. This information is to outline your options for follow-up care. We provide all patients seen in our emergency department with a follow-up referral. The need for follow-up, as well as the timing and circumstances, are variable depending upon the specifics of your emergency department visit. If you don't have a primary care physician on staff, we will provide you with a referral. We always advise you to contact your personal physician following an emergency department visit to inform them of the circumstance of the visit and for follow-up with them and/or the need for any referrals to a consulting specialist. The emergency department will also refer you to a specialist when appropriate. This referral assures that you have the opportunity for follow-up care with a specialist. All of these measure are taken in an effort to provide you with optimal care, which includes your follow-up. Under all circumstances we always encourage you to contact your private physician who remains a resource for coordinating your care. When calling for follow-up care, please make the office aware that this follow-up is from your recent emergency room visit. If for any reason you are refused follow-up, please contact the [facility] Emergency Department at and asked to speak to the emergency department charge nurse. Please follow up with your primary care physician. If you do not have a primary care physician, see below: [facility] [address] [place] [address] [id number] [facility] [address] [place] [id number] He was seen today because you had a heavier period and saw some large clots no concern about pregnancies. We did a urine and blood test they are both negative here. Your vital signs been stable. Your blood work and hemoglobin are within normal range. You have appointment scheduled tomorrow with your [facility] doctor we recommend you keep this appointment still follow-up if you have any other concerning signs or symptoms please feel free to return to the ED. Sepsis Event Note (ED) - Evaluation Sepsis Screening Result: No Definite Risk - Focused Exam Vital Signs: Vital Signs Temp Pulse Resp BP Pulse Ox 03/15/21 23:22 97.7 F 95 14 129/78 98 - Assessment/Plan Plan: Patient is a 25-year-old female presents today for vaginal bleeding. Patient is unsure if she is she had a beta done at [facility] and said it was indeterminate but had home positive pricey test. Will obtain urine today CBC and reassess patient.
[2021-03-15 23:53] VITALS: BP 129/78; PULSE 95
[2021-03-15] MEDS ORDERED: Ondansetron 4 MG/2 ML SDV IVPUSH ONE (23:54)
[2021-03-16 00:06] LABS: BLOOD UREA NITROGEN,BUN 21 mg/dL (7.0-18.0); CARBON DIOXIDE,CO2 24.8 mmol/L (21.0-32.0); CHLORIDE,CL 107 mmol/L (98-107); GLUCOSE RANDOM 104 mg/dL (74-106); POTASSIUM,K 3.7 mmol/L (3.5-5.1); SODIUM,NA 141 mmol/L (136-145)
== END 2021-03-16 00:39 | disposition home or self-care (01) ==
LOC: MW.ED 23:06
DX: N92.6 Irregular menstruation, unspecified (principal); J45.909 Unspecified asthma, uncomplicated; Z88.5 Allergy status to narcotic agent; Z91.040 Latex allergy status; Z88.8 Allergy status to other drugs, medicaments and biological substances
CPT/HCPCS: 36415; 80048; 81001; 81025; 84702; 85025; 85610; 85730; 96374; 99284; J2405

== ENCOUNTER 2021-05-15 16:27 | Emergency (ER) | payer SELFPAY ==
--- NOTE | 2021-05-15 17:35 | PCM.SN.2 ---
- Free Text/Narrative Note: EKG done 1820 at 1643 hrs. shows a sinus tachycardia with a heart rate of 100 [place] 155 QT duration 447 axis [address] and T compared to 02/21/2021 no change except rate impression tachycardia but otherwise normal
[2021-05-15] MEDS ORDERED: Ketorolac 60 MG/2 ML SDV IM ONE (18:02)
[2021-05-15 18:44] LABS: BLOOD UREA NITROGEN,BUN 13 mg/dL (7.0-18.0); CARBON DIOXIDE,CO2 23.7 mmol/L (21.0-32.0); CHLORIDE,CL 104 mmol/L (98-107); GLUCOSE RANDOM 94 mg/dL (74-106); POTASSIUM,K 3.7 mmol/L (3.5-5.1); SODIUM,NA 137 mmol/L (136-145)
--- NOTE | 2021-05-15 19:22 | CR ---
INDICATION: Chest injury from fall, syncope TECHNIQUE: Chest radiograph 1 view COMPARISON: 02/21/2021 FINDINGS: Mediastinum: The mediastinum is normal in appearance. The heart silhouette is normal in size and morphology. A left chest loop recorder is noted. Lung: Both lungs are unremarkable in appearance. No sign of pleural effusion seen. No pneumothorax is identified. Bone and Soft tissue: Unremarkable for age. IMPRESSION: 1. No acute cardiopulmonary disease is seen. Dictated by: Yared oChn MD @ 05/15/2021 19:20:31 (Electronically Signed)
--- NOTE | 2021-05-15 19:22 | CR ---
Indication: Fall Technique: Two views left forearm Comparison: None Findings: Bones: Alignment is normal. No fractures or bone lesions. Joint spaces: Unremarkable. Soft tissues: Unremarkable. Impression: Negative. Dictated by Mitzi Christine MD @ 05/15/2021 7:20:[address] Mitzi Christine @ May 15 2021 7:20PM
--- NOTE | 2021-05-15 19:24 | CR ---
Indication: Fall Technique: Two views left shoulder Comparison: None Findings: Bones: Alignment is normal. No fractures or bone lesions. Joint spaces: Unremarkable. Soft tissues: Electrical device projects over the left cardiac shadow. Impression: Negative. Dictated by Mitzi Christine MD @ 05/15/2021 7:22:[address] Mitzi Christine @ May 15 2021 7:22PM
--- NOTE | 2021-05-15 19:42 | EDM.PDOC ---
ED HPI GENERAL MEDICAL PROBLEM - General Chief Complaint: Upper Extremity Injury/Pain Stated Complaint: HEART CONDITION Time Seen by Provider: 05/15/21 16:58 Source of Information: Reports: Patient History Limitations: Reports: No Limitations - History of Present Illness INITIAL COMMENTS - FREE TEXT/NARRATIVE: HISTORY AND PHYSICAL: History of present illness: Patient is a 26-year-old female who presents emergency room today with concern of left shoulder injury after a syncopal event. Patient states that she has had a longstanding issue with syncope and does have a loop recorder internally at this time which is being closely monitored by her paper products machine operator in [place]. Patient states that she has had "numerous "testing to evaluate her syncopal events as she has these frequently and states she has them a couple times a week. Patient states typically, she is able to feel them coming on so was able to get into a safe place. Patient states that she started feeling it and started to put out her left shoulder and then fell onto her left shoulder and now has pain. Patient states she did not hit her head. Patient denies any other resuscitative symptoms. Patient states that she follows with a paper products machine operator and her syncopal event was typical of her usual syncopal events. Patient denies fever, chills, chest pain, shortness of breath, or cough. Denies headache, neck stiff ness, change in vision. Denies nausea, vomiting, abdominal pain, diarrhea, constipation, or dysuria. Has not noted any blood in urine or stool. Patient has been eating and drinking appropriately. Review of systems: As per history of present illness and below otherwise all systems reviewed and negative. Past medical history: As per history of present illness and as reviewed below otherwise noncontributory. Surgical history: As per history of present illness and as reviewed below otherwise noncontributory. Social history: See social history for further information Family history: As per history of present illness and as reviewed below otherwise noncontributory. Physical exam: General: Patient is alert, oriented, and in no acute distress. Patient sitting comfortably on exam table. Vitals stable and reviewed by me. HEENT: Atraumatic, normocephalic, pupils equal and reactive bilaterally, negative for conjunctival pallor or scleral icterus, mucous membranes moist, TMs normal bilaterally, throat clear, neck supple, nontender, trachea midline. No drooling or trismus noted. No meningeal signs. No hot potato voice noted. Lungs: Clear to auscultation, breath sounds equal bilaterally, chest nontender. Heart: S1S2, regular rate and rhythm without overt murmur Abdomen: Soft, nondistended, nontender. Negative for masses or hepatosplenomegaly. Negative for costovertebral tenderness. Pelvis: Stable nontender. Genitourinary: Deferred. Rectal: Deferred. Skin: Intact, warm, dry. No lesions or rashes noted. Extremities: No obvious deformity of the complete left upper extremity. Limited range of motion of the left shoulder due to pain with pain to palpation of the generalized left shoulder. Patient does have full range of motion of the left elbow but does have some pain with palpation of the left mid forearm without obvious deformity. Radial pulses grossly intact to left upper extremity with capillary refill less than 2 seconds. All compartments are soft of the left upper extremity. Intact sensation to light and deep touch of the complete left upper extremity. Otherwise, atraumatic, negative for cords or calf pain. Neurovascular unremarkable. Neuro: Awake, alert, oriented. Cranial nerves II through XII unremarkable. Cerebellum unremarkable. Motor and sensory unremarkable throughout. Exam nonfocal. Notes: Patient is a 26-year-old female, with a history of multiple syncopal events, who presents emergency room today with concern of left shoulder injury following a syncopal event that occurred just prior to travel to emergency room. Upon arrival to the ED, patient is vitally stable and well-appearing on exam. Patient does have limited range of motion of the left shoulder due to pain without any obvious deformity of the left shoulder. Will obtain cardiac work-up and image left shoulder. See Dr. Alonso's dictation for specific EKG interpretation. However, normal sinus rhythm without STEMI or acute changes. CBC is unremarkable. CMP mild derangements unremarkable. Troponin negative. hCG is negative. Forearm x-ray is unremarkable. Shoulder x-ray is unremarkable. Chest x-ray shows no acute cardiopulmonary process. Upon reevaluation of patient, she remains vitally stable and comfortable throughout stay in ED. Strict return precautions thoroughly discussed with patient. Discussed importance for follow-up with her paper products machine operator and or thopedic provider. Voices understanding and is agreeable to plan of care. Denies any further questions or concerns at this time. Diagnostics: CBC, CMP, troponin, EKG, chest x-ray, hCG, forearm and shoulder x-ray, left Therapeutics: Shoulder sling, Toradol Prescription: None Impression: Left shoulder injury Syncope Plan: 1. Rest, ice, elevate the affected extremity. You can apply ice 15 minutes on, 15 minutes off. 2. Tylenol and/or Ibuprofen as directed for pain management or discomfort. 3. Follow up with the Orthopedic provider and your paper products machine operator as discussed. Return to the ED as needed and as discussed. Definitive disposition and diagnosis as appropriate pending reevaluation and review of above. left shoulder Pain Score (Numeric/FACES): 8 - Related Data Allergies Allergy/AdvReac Type Severity Reaction Status Date / Time hydromorphone [From Dilaudid] Allergy Rash Verified 05/15/21 16:43 latex Allergy Blisters Verified 05/15/21 16:43 Latex, Natural Rubber Allergy Blisters Verified 05/15/21 16:43 lorazepam [From Ativan] Allergy Seizure Verified 05/15/21 16:43 phenazopyridine Allergy Vomiting Verified 05/15/21 16:43 [From Pyridium] promethazine Allergy Other Verified 05/15/21 16:43 chloraprep Allergy Blisters Uncoded 05/15/21 16:43 Home Meds: Home Meds . 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, Other PICK UP TRUCK DRIVER History: pt reports Musculoskeletal History: Reports: None Neurological History: Reports: None Psychiatric History: Reports: Anxiety, Depression Endocrine/Metabolic History: Reports: None Hematologic History: Reports: None Immunologic History: Reports: None Oncologic (Cancer) History: Reports: None Dermatologic History: Reports: None - Infectious Disease History Infectious Disease History: Reports: None - Past Surgical History Head Surgeries/Procedures: Reports: None HEENT Surgical History: Reports: None Cardiovascular Surgical History: Reports: None Other Cardiovascular Surgeries/Procedures: implanted loop recorder Respiratory Surgical History: Reports: None GI Surgical History: Reports: Other (See Below) Other GI Surgeries/Procedures: Laparoscopy Female Surgical History: Reports: None Other Female Surgeries/Procedures: pt states hshe has home confirmed , LMP Oct 30. Pt states she has apt with obgyn . Endocrine Surgical History: Reports: None Neurological Surgical History: Reports: None Musculoskeletal Surgical History: Reports: None Other Musculoskeletal Surgeries/Procedures:: right wrist surgery Oncologic Surgical History: Reports: None Dermatological Surgical History: Reports: None Social & Family History - Family History Family Medical History: No Pertinent Family History - Tobacco Use Tobacco Use Status *Q: Never Tobacco User Second Hand Smoke Exposure: No - Caffeine Use Caffeine Use: Reports: None Caffeine Use Comment: 3drinks/day - Recreational Drug Use Recreational Drug Use: No ED ROS GENERAL - Review of Systems Review Of Systems: Comprehensive ROS is negative, except as noted in HPI. ED EXAM, GENERAL - Physical Exam Exam: See Below (See dictation) Course - Vital Signs Last Recorded V/S: Last Vital Signs Temp 96.7 F L 05/15/21 20:00 Pulse 92 05/15/21 20:00 Resp 20 05/15/21 20:00 BP 111/70 05/15/21 20:00 Pulse Ox 100 05/15/21 20:00 - Orders/Labs/Meds Labs: Laboratory Tests 05/15/21 05/15/21 05/15/21 Range/Units 17:35 17:35 17:35 WBC 6.49 (4.0-11.0) K/uL RBC 4.45 (4.30-5.90) M/uL Hgb 13.4 (12.0-16.0) g/dL Hct 38.9 (36.0-46.0) % MCV 87.4 (80.0-98.0) fL MCH 30.1 (27.0-32.0) pg MCHC 34.4 (31.0-37.0) g/dL RDW Std Deviation 41.4 (28.0-62.0) fl RDW Coeff of [place] 13 (11.0-15.0) % Plt Count 316 (150-400) K/uL MPV 9.90 (7.40-12.00) fL Neut % (Auto) 54.0 (48.0-80.0) % Lymph % (Auto) 35.1 (16.0-40.0) % [place] % (Auto) 7.1 (0.0-15.0) % Eos % (Auto) 3.5 (0.0-7.0) % Baso % (Auto) 0.3 (0.0-1.5) % Neut # (Auto) 3.5 (1.4-5.7) K/uL Lymph # (Auto) 2.3 (0.6-2.4) K/uL [place] # (Auto) 0.5 (0.0-0.8) K/uL Eos # (Auto) 0.2 (0.0-0.7) K/uL Baso # (Auto) 0.0 (0.0-0.1) K/uL Nucleated RBC % 0.0 /100WBC Nucleated RBCs # 0 K/uL Sodium 137 (136-145) mmol/L Potassium 3.7 (3.5-5.1) mmol/L Chloride 104 (98-107) mmol/L Carbon Dioxide 23.7 (21.0-32.0) mmol/L BUN 13 (7.0-18.0) mg/dL Creatinine 0.7 (0.6-1.0) mg/dL Est Cr Clr Drug Dosing 120.51 mL/min Estimated GFR (MDRD) > 60.0 ml/min Glucose 94 (74-106) mg/dL Calcium 8.4 L (8.5-10.1) mg/dL Total Bilirubin 0.3 (0.2-1.0) mg/dL AST 15 (15-37) IU/L ALT 23 (14-63) IU/L Alkaline Phosphatase 56 (46-116) U/L Troponin I < 0.050 (0.000-0.056) ng/mL Total Protein 7.1 (6.4-8.2) g/dL Albumin 4.1 (3.4-5.0) g/dL Globulin 3.0 (2.6-4.0) g/dL Albumin/Globulin Ratio 1.4 (0.9-1.6) HCG, Qual NEGATIVE (NEG) Meds: Medications Discontinued Medications Generic Name Dose Route Start Last Admin Trade Name Freq PRN Reason Stop Dose Admin Ketorolac Tromethamine 60 mg 05/15/21 18:02 05/15/21 18:19 Ketorolac 60 Mg/2 Ml Sdv IM 05/15/21 18:03 60 mg ONETIME ONE Administration Departure - Departure Time of Disposition: 19:41 Disposition: Home, Self-Care 01 Clinical Impression: Shoulder injury Qualifiers: Encounter type: initial encounter Laterality: left Qualified Code(s): S49.92XA - Unspecified injury of left shoulder and upper arm, initial encounter Syncope Qualifiers: Syncope type: unspecified Qualified Code(s): R55 - Syncope and collapse - Discharge Information Referrals: Elan Dillard MD [Primary Care Provider] - Forms: ED Department Discharge Additional Instructions: The following information is given to patients seen in the emergency department who are being discharged to home. This information is to outline your options for follow-up care. We provide all patients seen in our emergency department with a follow-up referral. The need for follow-up, as well as the timing and circumstances, are variable depending upon the specifics of your emergency department visit. If you don't have a primary care physician on staff, we will provide you with a referral. We always advise you to contact your personal physician following an emergency department visit to inform them of the circumstance of the visit and for follow-up with them and/or the need for any referrals to a consulting specialist. The emergency department will also refer you to a specialist when appropriate. This referral assures that you have the opportunity for follow-up care with a specialist. All of these measure are taken in an effort to provide you with optimal care, which includes your follow-up. Under all circumstances we always encourage you to contact your private physician who remains a resource for coordinating your care. When calling for follow-up care, please make the office aware that this follow-up is from your recent emergency room visit. If for any reason you are refused follow-up, please contact the [facility] Emergency Department at and asked to speak to the emergency department charge nurse. [facility] [address] [place] [id number] [facility] [address] [place] [address] [facility] - [facility] Professional Building [address], [address] [place] [address] 1. Rest, ice, elevate the affected extremity. You can apply ice 15 minutes on, 15 minutes off. 2. Tylenol and/or Ibuprofen as directed for pain management or discomfort. 3. Follow up with the Orthopedic provider and your paper products machine operator as discussed. Return to the ED as needed and as discussed. Sepsis Event Note (ED) - Evaluation Sepsis Screening Result: No Definite Risk - Focused Exam Vital Signs: Vital Signs Temp Pulse Resp BP Pulse Ox 05/15/21 20:00 96.7 F L 92 20 111/70 100 05/15/21 17:30 97 18 115/68 97 05/15/21 16:39 97.8 F 114 H 18 120/68 98
[2021-05-15 21:11] VITALS: BP 111/70; PULSE 92
== END 2021-05-15 20:00 | disposition home or self-care (01) ==
LOC: MW.ED 16:27
DX: R55 Syncope and collapse (principal); S49.92XA Unspecified injury of left shoulder and upper arm, initial encounter; J45.909 Unspecified asthma, uncomplicated; Z88.8 Allergy status to other drugs, medicaments and biological substances; Z88.5 Allergy status to narcotic agent; Z91.040 Latex allergy status; W18.30XA Fall on same level, unspecified, initial encounter
CPT/HCPCS: 36415; 71045; 73030; 73090; 80053; 84484; 84703; 85025; 93005; 96372; 99284; J1885

== ENCOUNTER 2021-07-05 20:48 | Emergency (ER) | payer SELFPAY ==
[2021-07-05] MEDS ORDERED: Sodium Chloride 0.9% 2.5 ML Syringe FLUSH PRN (22:42)
[2021-07-05] MEDS ORDERED: Sodium Chloride 0.9% 10 ML Syringe FLUSH PRN (22:42)
[2021-07-05 23:00] LABS: BLOOD UREA NITROGEN,BUN 14 mg/dL (7.0-18.0); CARBON DIOXIDE,CO2 27.5 mmol/L (21.0-32.0); CHLORIDE,CL 103 mmol/L (98-107); GLUCOSE RANDOM 99 mg/dL (74-106); POTASSIUM,K 3.6 mmol/L (3.5-5.1); SODIUM,NA 141 mmol/L (136-145)
[2021-07-05] MEDS ORDERED: Naproxen 500 MG Tab PO ONE (23:26)
--- NOTE | 2021-07-06 00:05 | EDM.PDOC ---
ED HPI GENERAL MEDICAL PROBLEM - General Chief Complaint: Chest Pain Stated Complaint: CHEST PAIN Time Seen by Provider: 07/05/21 22:33 - History of Present Illness INITIAL COMMENTS - FREE TEXT/NARRATIVE: HISTORY AND PHYSICAL: History of present illness: Is a 26-year-old female with a history significant for arrhythmias in the past and is currently having a Holter monitor in place who presents ER today complaining of left-sided chest pain has been sharp in nature and intermittent times today. Patient reports she had similar pain in the past and they have not been able determine the cause of it. Patient denies any recent fevers, shakes, chills, nausea, vomiting, diarrhea, dysuria, frequency, urgency. Patient reports no pain rating down her arms or back. Patient ports pain is noted underneath her left breast and increases with deep inspiration and palpation. Patient reports that she does have an appoint with Dr. Pham on July 13. Review of systems: As per history of present illness and below otherwise all systems reviewed and negative. Past medical history: As per history of present illness and as reviewed below otherwise noncontributory. Surgical history: As per history of present illness and as reviewed below otherwise noncontributory. Social history: No reported history of drug abuse. Family history: As per history of present illness and as reviewed below otherwise noncontributory. Physical exam: This patient was seen and evaluated during the 2019 SARS-CoV-2 novel coronavirus pandemic period. Community viral transmission is ongoing at time of this encounter and the emergency department is operating under pandemic response procedures. Constitutional: Patient is oriented to person, place, and time. Appears well- developed and well-nourished. No distress. HEENT: Moist mucous membranes Head: Normocephalic and atraumatic Eyes: Right eye exhibits no discharge. Left eye exhibits no discharge. No scleral icterus Neck: Normal range of motion. No tracheal deviation present. Cardiovascular: Normal rate and regular rhythm. Pulmonary: Effort normal, no respiratory distress. Abdominal: No distention Musculoskeletal: Normal range of motion Neurologic: Alert and oriented to person, place and time. Skin: Coward, warm and dry. Psychiatric: Normal mood and affect. Behavior is normal. Judgment and thought content normal. Nursing note and vital signs have been reviewed Patient's ER physical exam is significant for reproducible tenderness palpation to her left anterior chest wall underneath her left breast. Diagnostics: CBC, CMP within normal limits. D-dimer negative. Troponin negative. July 05, 2021 8:49 PM EKG: As interpreted by ER physician: Cass: Nonspecific ST-T wave abnormalities Normal axis No evidence of ST elevation [place] Normal sinus rhythm heart rate of 100 Therapeutics: Naprosyn 500 mg p.o. Assessment and plan: 26-year-old female who presents ER today with atypical chest pain. Etiology of her pain is unclear however patient does have a normal D-dimer, normal CBC, CMP, troponin and EKG. At this time, I feel that the patient is stable for discharge home for continued outpatient evaluation for her chest pain and arrhythmias. Patient has remained clinically stable in the ED. Patient's vital signs are all within normal limits. Reassessment at the time of disposition demonstrates that the patient is in no acute distress. The patient has remained stable throughout the entire ED visit and is without objective evidence for acute process requiring urgent intervention or hospitalization. The patient is stable for discharge, counseling is provided as documented above, discussed symptomatic treatment and specific conditions for return. I have spoken with the patient/caregiver and discussed todays findings, in addition to providing specific details for the plan of care. Questions are answered and there is agreement with the plan. Definitive disposition and diagnosis as appropriate pending reevaluation and review of above. chest Pain Score (Numeric/FACES): 6 - Related Data Allergies Allergy/AdvReac Type Severity Reaction Status Date / Time cyclobenzaprine Allergy Agitation Verified 07/05/21 20:55 [From Flexeril] hydromorphone [From Dilaudid] Allergy Rash Verified 07/05/21 20:52 latex Allergy Blisters Verified 07/05/21 20:52 Latex, Natural Rubber Allergy Blisters Verified 07/05/21 20:52 lorazepam [From Ativan] Allergy Seizure Verified 07/05/21 20:52 phenazopyridine Allergy Vomiting Verified 07/05/21 20:52 [From Pyridium] promethazine Allergy Other Verified 07/05/21 20:52 chloraprep Allergy Blisters Uncoded 07/05/21 20:52 Home Meds: Home Meds Aspirin 81 mg PO DAILY 07/05/21 [History] Past Medical History - Past Health History Medical/Surgical History: Denies Medical/Surgical History HEENT History: Reports: None Cardiovascular History: Reports: Other (See Below) Other Cardiovascular History: cyantistachardia, pt reports "unknown or undiagnosed heart condition, fast heart rate" Respiratory History: Reports: Asthma Gastrointestinal History: Reports: None Genitourinary History: Reports: Other (See Below) Other Genitourinary History: endometriosis, painful bladder syndrome 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, Other CASE MANAGER SPECIALIST History: pt reports Musculoskeletal History: Reports: None Neurological History: Reports: None Psychiatric History: Reports: Anxiety, Depression Endocrine/Metabolic History: Reports: None Hematologic History: Reports: None Immunologic History: Reports: None Oncologic (Cancer) History: Reports: None Dermatologic History: Reports: None - Infectious Disease History Infectious Disease History: Reports: None - Past Surgical History Head Surgeries/Procedures: Reports: None HEENT Surgical History: Reports: None Cardiovascular Surgical History: Reports: None Other Cardiovascular Surgeries/Procedures: implanted loop recorder Respiratory Surgical History: Reports: None GI Surgical History: Reports: Other (See Below) Other GI Surgeries/Procedures: Laparoscopy Female Surgical History: Reports: None Endocrine Surgical History: Reports: None Neurological Surgical History: Reports: None Musculoskeletal Surgical History: Reports: None Other Musculoskeletal Surgeries/Procedures:: right wrist surgery Oncologic Surgical History: Reports: None Dermatological Surgical History: Reports: None Social & Family History - Family History Family Medical History: No Pertinent Family History - Tobacco Use Tobacco Use Status *Q: Current Every Day Tobacco User Years of Tobacco use: 10 Packs/Tins Daily: 0.5 - Caffeine Use Caffeine Use: Reports: Energy Drinks Caffeine Use Comment: 3drinks/day - Recreational Drug Use Recreational Drug Use: Yes Drug Use in Last 12 Months: Yes Recreational Drug Type: Reports: Marijuana/Hashish Recreational Drug Use Frequency: Socially ED ROS GENERAL - Review of Systems Review Of Systems: See Below ED EXAM, GENERAL - Physical Exam Exam: See Below Course - Vital Signs Last Recorded V/S: Last Vital Signs Temp 97.1 F 07/05/21 20:56 Pulse 93 07/05/21 21:42 Resp 19 07/05/21 21:42 BP 99/49 L 07/05/21 21:42 Pulse Ox 98 07/05/21 21:42 - Orders/Labs/Meds Orders: Active Orders 24 hr Category Date Time Status Sodium Chloride 0.9% [Saline Flush] Med 07/05/21 22:42 Active 10 ml FLUSH ASDIRECTED PRN Sodium Chloride 0.9% [Saline Flush] Med 07/05/21 22:42 Active 2.5 ml FLUSH ASDIRECTED PRN Saline Lock Insert [OM.PC] Stat Oth 07/05/21 22:42 Ordered Medication Orders Sodium Chloride (Sodium Chloride 0.9% 10 Ml Syringe) 10 ml FLUSH ASDIRECTED PRN PRN Reason: Keep Vein Open Last Admin: 07/05/21 23:40 Dose: 10 ml Documented by: GARY Sodium Chloride (Sodium Chloride 0.9% 2.5 Ml Syringe) 2.5 ml FLUSH ASDIRECTED PRN PRN Reason: Keep Vein Open Last Admin: 07/05/21 23:40 Dose: 2.5 ml Documented by: GARY Labs: Laboratory Tests 07/05/21 07/05/21 07/05/21 Range/Units 21:50 21:50 21:50 WBC 8.22 (4.0-11.0) K/uL RBC 4.20 L (4.30-5.90) M/uL Hgb 12.8 (12.0-16.0) g/dL Hct 37.1 (36.0-46.0) % MCV 88.3 (80.0-98.0) fL MCH 30.5 (27.0-32.0) pg MCHC 34.5 (31.0-37.0) g/dL RDW Std Deviation 42.4 (28.0-62.0) fl RDW Coeff of [place] 13 (11.0-15.0) % Plt Count 320 (150-400) K/uL MPV 10.10 (7.40-12.00) fL Neut % (Auto) 54.3 (48.0-80.0) % Lymph % (Auto) 33.0 (16.0-40.0) % [place] % (Auto) 8.3 (0.0-15.0) % Eos % (Auto) 4.0 (0.0-7.0) % Baso % (Auto) 0.4 (0.0-1.5) % Neut # (Auto) 4.5 (1.4-5.7) K/uL Lymph # (Auto) 2.7 H (0.6-2.4) K/uL [place] # (Auto) 0.7 (0.0-0.8) K/uL Eos # (Auto) 0.3 (0.0-0.7) K/uL Baso # (Auto) 0.0 (0.0-0.1) K/uL Nucleated RBC % 0.0 /100WBC Nucleated RBCs # 0 K/uL D-Dimer, Quantitative 0.19 (0.0-0.50) mg/L FEU Sodium 141 (136-145) mmol/L Potassium 3.6 (3.5-5.1) mmol/L Chloride 103 (98-107) mmol/L Carbon Dioxide 27.5 (21.0-32.0) mmol/L BUN 14 (7.0-18.0) mg/dL Creatinine 0.9 (0.6-1.0) mg/dL Est Cr Clr Drug Dosing 93.73 mL/min Estimated GFR (MDRD) > 60.0 ml/min Glucose 99 (74-106) mg/dL Calcium 9.1 (8.5-10.1) mg/dL Total Bilirubin 0.3 (0.2-1.0) mg/dL AST 16 (15-37) IU/L ALT 11 L (14-63) IU/L Alkaline Phosphatase 58 (46-116) U/L Troponin I < 0.050 (0.000-0.056) ng/mL Total Protein 7.5 (6.4-8.2) g/dL Albumin 4.2 (3.4-5.0) g/dL Globulin 3.3 (2.6-4.0) g/dL Albumin/Globulin Ratio 1.3 (0.9-1.6) Meds: Medications Generic Name Dose Route Start Last Admin Trade Name Freq PRN Reason Stop Dose Admin Sodium Chloride 10 ml 07/05/21 22:42 07/05/21 23:40 Sodium Chloride 0.9% 10 Ml Syringe FLUSH 10 ml ASDIRECTED PRN Administration Keep Vein Open Sodium Chloride 2.5 ml 07/05/21 22:42 07/05/21 23:40 Sodium Chloride 0.9% 2.5 Ml Syringe FLUSH 2.5 ml ASDIRECTED PRN Administration Keep Vein Open Discontinued Medications Generic Name Dose Route Start Last Admin Trade Name Freq PRN Reason Stop Dose Admin Naproxen 500 mg 07/05/21 23:26 07/05/21 23:39 Naproxen 500 Mg Tab PO 07/05/21 23:27 500 mg ONETIME ONE Administration Departure - Departure Time of Disposition: 00:04 Disposition: Home, Self-Care 01 Condition: Good Clinical Impression: Chest pain, atypical - Discharge Information Instructions: Nonspecific Chest Pain, Adult Referrals: Elan Dillard MD [Primary Care Provider] - Additional Instructions: Your seen and evaluated in the ER today secondary to atypical chest discomfort. This may be related to muscle pain or inflammation of your linings of your heart. I would continue taking nonsteroidal medications like Naprosyn or ibuprofen help you with your pain and discomfort. Please keep your appointment with Dr. Pham on July 13 for reevaluation. The following information is given to patients seen in the emergency department who are being discharged to home. This information is to outline your options for follow-up care. We provide all patients seen in our emergency department with a follow-up referral. The need for follow-up, as well as the timing and circumstances, are variable depending upon the specifics of your emergency department visit. If you don't have a primary care physician on staff, we will provide you with a referral. We always advise you to contact your personal physician following an emergency department visit to inform them of the circumstance of the visit and for follow-up with them and/or the need for any referrals to a consulting specialist. The emergency department will also refer you to a specialist when appropriate. This referral assures that you have the opportunity for follow-up care with a specialist. All of these measure are taken in an effort to provide you with optimal care, which includes your follow-up. Under all circumstances we always encourage you to contact your private physician who remains a resource for coordinating your care. When calling for follow-up care, please make the office aware that this follow-up is from your recent emergency room visit. If for any reason you are refused follow-up, please contact the [facility] Emergency Department at and asked to speak to the emergency department charge nurse. [facility] [address] [place] [id number] [place] [address] Sepsis Event Note (ED) - Evaluation Sepsis Screening Result: No Definite Risk - Focused Exam Vital Signs: Vital Signs Temp Pulse Resp BP Pulse Ox 07/05/21 21:42 93 19 99/49 L 98 07/05/21 20:56 97.1 F 103 H 18 130/77 99 - My Orders Last 24 Hours: My Active Orders 07/05/21 22:42 Sodium Chloride 0.9% [Saline Flush] 10 ml FLUSH ASDIRECTED PRN Sodium Chloride 0.9% [Saline Flush] 2.5 ml FLUSH ASDIRECTED PRN Saline Lock Insert [OM.PC] Stat - Assessment/Plan Last 24 Hours: My Active Orders 07/05/21 22:42 Sodium Chloride 0.9% [Saline Flush] 10 ml FLUSH ASDIRECTED PRN Sodium Chloride 0.9% [Saline Flush] 2.5 ml FLUSH ASDIRECTED PRN Saline Lock Insert [OM.PC] Stat
[2021-07-06 00:14] VITALS: BP 94/54; PULSE 92
== END 2021-07-06 00:07 | disposition home or self-care (01) ==
LOC: MW.ED 20:48
DX: R07.89 Other chest pain (principal); J45.909 Unspecified asthma, uncomplicated; Z72.0 Tobacco use; Z88.8 Allergy status to other drugs, medicaments and biological substances; Z88.5 Allergy status to narcotic agent; Z91.040 Latex allergy status; Z79.82 Long term (current) use of aspirin
CPT/HCPCS: 36415; 80053; 84484; 85025; 85379; 93005; 93010; 99284; 99285-25; A9270-GY

== ENCOUNTER 2021-10-13 16:22 | Emergency (ER) | payer SELFPAY ==
[2021-10-13] MEDS ORDERED: diphenhydrAMINE 50 MG/ML SDV IM ONE (16:47)
[2021-10-13] MEDS ORDERED: methylPREDNISolone Sodium Succinate 125 MG/2 ML SDV IM ONE (16:47)
[2021-10-13] MEDS ORDERED: Alum Hydro/Mag Hydro/Simeth XS 15 ML, Lidocaine 2% 5 ML PO ONE ×2 (16:48)
--- NOTE | 2021-10-13 16:51 | EDM.PDOC ---
ED HPI GENERAL MEDICAL PROBLEM - General Chief Complaint: Allergic Reaction Stated Complaint: ALLERGIC REACTION/FEELS LIKE THROAT IS CLOSING Time Seen by Provider: 10/13/21 16:35 Source of Information: Reports: Patient History Limitations: Reports: No Limitations - History of Present Illness INITIAL COMMENTS - FREE TEXT/NARRATIVE: 26-year-old female past medical history of several medication allergies presents for concern for allergic reaction. Patient states that she was eating breakfast and afterwards noticed that her throat seemed scratchy and felt as if it might be closing. She denies any rashes, nausea, vomiting. Symptoms have been continuous throughout the day without worsening but not getting better. No shortness of breath. Tolerating secretions. No history of anything similar to this in the past. She also notes that she has some white patches on the back of her left-sided throat. - Related Data Allergies Allergy/AdvReac Type Severity Reaction Status Date / Time cyclobenzaprine Allergy Agitation Verified 10/13/21 16:33 [From Flexeril] hydromorphone [From Dilaudid] Allergy Rash Verified 10/13/21 16:33 latex Allergy Blisters Verified 10/13/21 16:33 Latex, Natural Rubber Allergy Blisters Verified 10/13/21 16:33 lorazepam [From Ativan] Allergy Seizure Verified 10/13/21 16:33 phenazopyridine Allergy Vomiting Verified 10/13/21 16:33 [From Pyridium] promethazine Allergy Other Verified 10/13/21 16:33 chloraprep Allergy Blisters Uncoded 10/13/21 16:33 Home Meds: Home Meds Aspirin 81 mg PO DAILY 07/05/21 [History] Metoprolol Succinate/HCTZ [Dutoprol 25-12.5 mg Tablet] 1 each PO 10/13/21 [History] Past Medical History - Past Health History Medical/Surgical History: Denies Medical/Surgical History HEENT History: Reports: None Cardiovascular History: Reports: Other (See Below) Other Cardiovascular History: cyantistachardia, pt reports "unknown or undiagnosed heart condition, fast heart rate" Respiratory History: Reports: Asthma Gastrointestinal History: Reports: None Genitourinary History: Reports: Other (See Below) Other Genitourinary History: endometriosis, painful bladder syndrome 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, 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 Musculoskeletal History: Reports: None Neurological History: Reports: None Psychiatric History: Reports: Anxiety, Depression Endocrine/Metabolic History: Reports: None Hematologic History: Reports: None Immunologic History: Reports: None Oncologic (Cancer) History: Reports: None Dermatologic History: Reports: None - Infectious Disease History Infectious Disease History: Reports: None - Past Surgical History Head Surgeries/Procedures: Reports: None HEENT Surgical History: Reports: None Cardiovascular Surgical History: Reports: None Other Cardiovascular Surgeries/Procedures: implanted loop recorder Respiratory Surgical History: Reports: None GI Surgical History: Reports: Other (See Below) Other GI Surgeries/Procedures: Laparoscopy Female Surgical History: Reports: None Other Female Surgeries/Procedures: pt states hshe has home confirmed , LMP Oct 30. Pt states she has apt with obgyn . Endocrine Surgical History: Reports: None Neurological Surgical History: Reports: None Musculoskeletal Surgical History: Reports: None Other Musculoskeletal Surgeries/Procedures:: right wrist surgery Oncologic Surgical History: Reports: None Dermatological Surgical History: Reports: None Social & Family History - Family History Family Medical History: No Pertinent Family History - Tobacco Use Tobacco Use Status *Q: Current Every Day Tobacco User Years of Tobacco use: 9 Packs/Tins Daily: 0.2 - Caffeine Use Caffeine Use: Reports: Energy Drinks Caffeine Use Comment: 3drinks/day - Recreational Drug Use Recreational Drug Use: No ED ROS ALLERGIC REACTION - Review of Systems Review Of Systems: Comprehensive ROS is negative, except as noted in HPI. ED EXAM GENERAL NO PERIP PULSE - Physical Exam Exam: See Below Exam Limited By: No Limitations General Appearance: Alert, WD/WN, No Apparent Distress Ears: Hearing Grossly Normal Throat/Mouth: Normal Voice, No Airway Compromise, Other (erythema/dry oropharynx, small area of white patches (exudates?) on L oropharynx, no swelling, uveula midline) Head: Atraumatic, Normocephalic Neck: Normal Inspection, Other (No stridor) Respiratory/Chest: No Respiratory Distress, Lungs Clear, Normal Breath Sounds, N o Accessory Muscle Use Cardiovascular: Normal Peripheral Pulses, Regular Rate, Rhythm Extremities: Normal Inspection Neurological: Alert, Normal Cognition, Normal Gait Psychiatric: Normal Affect, Normal Mood Skin Exam: Warm, Dry, Intact, Normal Color Course - Vital Signs Last Recorded V/S: Last Vital Signs Temp 98.1 F 10/13/21 16:34 Pulse 93 10/13/21 16:34 Resp 18 10/13/21 16:34 BP 108/67 10/13/21 16:34 Pulse Ox 99 10/13/21 16:34 - Orders/Labs/Meds Labs: Laboratory Tests 10/13/21 Range/Units 17:05 Group A Strep (PCR) NOT DETECTED (NOT DETECT) Meds: Medications Discontinued Medications Generic Name Dose Route Start Last Admin Trade Name Noelle PRN Reason Stop Dose Admin [place]um [place]/Mag [place]/Simeth XS 0 ml 10/13/21 16:48 10/13/21 17:02 15 ml/ Lidocaine HCl 5 ml PO 10/13/21 16:49 1 each ONETIME ONE Administration Diphenhydramine HCl 50 mg 10/13/21 16:47 10/13/21 17:02 Diphenhydramine 50 Mg/Ml Sdv IM 10/13/21 16:48 50 mg ONETIME ONE Administration Methylprednisolone Sodium Succinate 125 mg 10/13/21 16:47 10/13/21 17:09 Methylprednisolone Sodium Succinate 125 Mg/2 Ml Sdv IM 10/13/21 16:48 125 mg ONETIME ONE Administration - Re-Assessments/Exams Free Text/Narrative Re-Assessment/Exam: 10/13/21 16:50 We will treat with steroids and Benadryl. Will give GI cocktail. Will get streptococcal pharyngitis testing. Will reassess. 10/13/21 17:50 Strep test is negative. Patient feels better after GI cocktail and meds. Will discharge with short course of steroids for potential allergic reaction. Departure - Departure Time of Disposition: 17:50 Disposition: Home, Self-Care 01 Condition: Good Clinical Impression: Allergic reaction Qualifiers: Encounter type: initial encounter Qualified Code(s): T78.40XA - Allergy, unspecified, initial encounter - Discharge Information Instructions: Allergies, Adult, [id number] Forms: ED Department Discharge Additional Instructions: Your steroids of been [facility]. The following information is given to patients seen in the emergency department who are being discharged to home. This information is to outline your options for follow-up care. We provide all patients seen in our emergency department with a follow-up referral. The need for follow-up, as well as the timing and circumstances, are variable depending upon the specifics of your emergency department visit. If you don't have a primary care physician on staff, we will provide you with a referral. We always advise you to contact your personal physician following an emergency department visit to inform them of the circumstance of the visit and for follow-up with them and/or the need for any referrals to a consulting specialist. The emergency department will also refer you to a specialist when appropriate. This referral assures that you have the opportunity for follow-up care with a specialist. All of these measure are taken in an effort to provide you with optimal care, which includes your follow-up. Under all circumstances we always encourage you to contact your private physician who remains a resource for coordinating your care. When calling for follow-up care, please make the office aware that this follow-up is from your recent emergency room visit. If for any reason you are refused follow-up, please contact the [facility] Emergency Department at and asked to speak to the emergency department charge nurse. Please follow up with your primary care physician. If you do not have a primary care physician, see below: [facility] [address] [place] [id number] [facility] [address] [place] [id number] [facility] [address] [place] [id number] Sepsis Event Note (ED) - Evaluation Sepsis Screening Result: No Definite Risk - Focused Exam Vital Signs: Vital Signs Temp Pulse Resp BP Pulse Ox 10/13/21 16:34 98.1 F 93 18 108/67 99
[2021-10-13 17:57] VITALS: BP 110/67; PULSE 80
== END 2021-10-13 17:57 | disposition home or self-care (01) ==
LOC: MW.ED 16:22
DX: T78.40XA Allergy, unspecified, initial encounter (principal); J45.909 Unspecified asthma, uncomplicated; Z72.0 Tobacco use; Z88.8 Allergy status to other drugs, medicaments and biological substances; Z88.5 Allergy status to narcotic agent; Z91.040 Latex allergy status; Z79.82 Long term (current) use of aspirin; Z79.899 Other long term (current) drug therapy
CPT/HCPCS: 87651; 96372; 99283; A9270; J1200; J2930

== ENCOUNTER 2021-11-21 21:44 | Emergency (ER) | payer SELFPAY ==
[2021-11-21] MEDS ORDERED: Ketorolac 30 MG/ML SDV IM ONE (22:47)
[2021-11-21] MEDS ORDERED: diphenhydrAMINE 50 MG Cap PO ONE (22:52)
[2021-11-21 23:50] VITALS: BP 110/70; PULSE 88
== END 2021-11-21 23:50 | disposition home or self-care (01) ==
LOC: MW.ED 21:44
DX: S93.602A Unspecified sprain of left foot, initial encounter (principal); Z88.8 Allergy status to other drugs, medicaments and biological substances; Z91.040 Latex allergy status; Z88.5 Allergy status to narcotic agent; Z79.82 Long term (current) use of aspirin; W19.XXXA Unspecified fall, initial encounter
CPT/HCPCS: 29515; 73590; 73630; 96372; 99283; A9270; J1885; 99282

== ENCOUNTER 2022-01-23 03:37 | Emergency (ER) | payer SELFPAY ==
[2022-01-23] MEDS ORDERED: Morphine 4 MG/ML VIAL IM ONE (03:40)
[2022-01-23] MEDS ORDERED: Morphine 4 MG/ML VIAL IVPUSH ONE (03:47)
[2022-01-23 05:54] VITALS: BP 104/56; PULSE 73
== END 2022-01-23 05:53 | disposition home or self-care (01) ==
LOC: MW.ED 03:37
DX: M54.2 Cervicalgia (principal); Z91.040 Latex allergy status; Z88.8 Allergy status to other drugs, medicaments and biological substances; Z79.82 Long term (current) use of aspirin
CPT/HCPCS: 70450; 71250; 72125; 96374; 99283; J2270

== ENCOUNTER 2022-02-10 17:13 | Emergency (ER) | payer SELFPAY ==
[2022-02-10] MEDS ORDERED: methylPREDNISolone Sodium Succinate 125 MG/2 ML SDV IVPUSH ONE (17:25)
[2022-02-10] MEDS ORDERED: diphenhydrAMINE 50 MG/ML SDV IVPUSH ONE (17:25)
[2022-02-10 18:23] VITALS: BP 117/71; PULSE 87
== END 2022-02-10 18:23 | disposition home or self-care (01) ==
LOC: MW.ED 17:13
DX: L50.0 Allergic urticaria (principal); Z91.018 Allergy to other foods; Z91.040 Latex allergy status; Z88.8 Allergy status to other drugs, medicaments and biological substances; Z79.82 Long term (current) use of aspirin; Z72.0 Tobacco use
CPT/HCPCS: 96374; 96375; 99283; J1200; J2930

== ENCOUNTER 2022-02-13 21:06 | Emergency (ER) | payer OTHER ==
[2022-02-13] MEDS ORDERED: Ketorolac 30 MG/ML SDV IM ONE (21:25)
[2022-02-13] MEDS ORDERED: Cyclobenzaprine 10 MG Tab PO ONE (22:32)
[2022-02-13] MEDS ORDERED: Acetaminophen/HYDROcodone 325-5 MG Tab PO ONE (22:40)
[2022-02-13 22:55] VITALS: BP 112/71; PULSE 88
== END 2022-02-13 22:51 | disposition home or self-care (01) ==
LOC: MW.ED 21:06
DX: S16.1XXA Strain of muscle, fascia and tendon at neck level, initial encounter (principal); S20.212A Contusion of left front wall of thorax, initial encounter; Z88.8 Allergy status to other drugs, medicaments and biological substances; Z91.018 Allergy to other foods; Z91.040 Latex allergy status; Z79.82 Long term (current) use of aspirin; V89.2XXA Person injured in unspecified motor-vehicle accident, traffic, initial encounter; Y92.410 Unspecified street and highway as the place of occurrence of the external cause
CPT/HCPCS: 71045; 71045-26; 72125; 72125-26; 96372; 99284-25; A9270-GY; J1885

== ENCOUNTER 2022-03-31 13:41 | Emergency (ER) | payer SELFPAY | END 2022-03-31 14:14 | disposition left against medical advice (07) | LOC: MW.ED 13:41 | DX: Z53.21 Procedure and treatment not carried out due to patient leaving prior to being seen by health care provider (principal) ==

== ENCOUNTER 2022-03-31 15:12 | Emergency (ER) | payer SELFPAY ==
[2022-03-31] MEDS ORDERED: Sodium Chloride 0.9% 1,000 ML IV ONE (15:32)
[2022-03-31] MEDS ORDERED: Ketorolac 30 MG/ML SDV IVPUSH ONE (16:09)
[2022-03-31] MEDS ORDERED: Ondansetron 4 MG/2 ML SDV IVPUSH ONE (16:09)
[2022-03-31 16:28] LABS: BLOOD UREA NITROGEN,BUN 11 mg/dL (7.0-18.0); CARBON DIOXIDE,CO2 23.1 mmol/L (21.0-32.0); CHLORIDE,CL 103 mmol/L (98-107); GLUCOSE RANDOM 95 mg/dL (74-106); POTASSIUM,K 3.9 mmol/L (3.5-5.1); SODIUM,NA 139 mmol/L (136-145)
[2022-03-31 16:29] LABS: CORONAVIRUS COVID-19 NAA NEGATIVE (NEGATIVE); INFLUENZA A NAA NEGATIVE (NEGATIVE); INFLUENZA B NAA NEGATIVE (NEGATIVE)
[2022-03-31 16:30] LABS: ESTIMATED GFR 92 mL/min (>60)
[2022-03-31 17:03] VITALS: BP 113/58; PULSE 82
== END 2022-03-31 17:06 | disposition home or self-care (01) ==
LOC: MW.ED 15:12
DX: N93.8 Other specified abnormal uterine and vaginal bleeding (principal); Z91.040 Latex allergy status; Z91.018 Allergy to other foods; Z88.5 Allergy status to narcotic agent; Z88.8 Allergy status to other drugs, medicaments and biological substances; Z79.82 Long term (current) use of aspirin; Z20.822 Contact with and (suspected) exposure to COVID-19
CPT/HCPCS: 0240U; 36415; 80053; 84702; 85025; 93005; 96361; 96374; 96375; 99284; J1885; J2405; J7030; 93010

== ENCOUNTER 2022-04-19 01:14 | Emergency (ER) | payer MEDICAID ==
[2022-04-19] MEDS ORDERED: Acetaminophen/HYDROcodone 325-5 MG Tab PO ONE (01:42)
[2022-04-19] MEDS ORDERED: Sodium Chloride 0.9% 1,000 ML IV ONE (01:45)
[2022-04-19 02:38] LABS: POTASSIUM,K 3.3 mmol/L (3.5-5.1)
[2022-04-19] MEDS ORDERED: Morphine 4 MG/ML VIAL IVPUSH ONE (02:44)
[2022-04-19] MEDS ORDERED: Iopamidol 755 MG/ML 500 ML Multipack Bottle IVPUSH STA (03:47)
[2022-04-19] MEDS ORDERED: diphenhydrAMINE 50 MG/ML SDV IVPUSH ONE (04:28)
[2022-04-19 05:31] VITALS: BP 111/62; PULSE 90
== END 2022-04-19 05:15 | disposition home or self-care (01) ==
LOC: MW.ED 01:14
DX: T74.11XA Adult physical abuse, confirmed, initial encounter (principal); Z91.040 Latex allergy status; Z88.5 Allergy status to narcotic agent; Z91.018 Allergy to other foods; Z88.8 Allergy status to other drugs, medicaments and biological substances; Z79.899 Other long term (current) drug therapy; Z79.82 Long term (current) use of aspirin
CPT/HCPCS: 36415; 70450; 71045; 72125; 72128; 72131; 73030; 73090; 73110; 74177; 80053; 81025; 84703; 85025; 96361; 96374; 96375; 99284; A9270; J1200; J2270; J7030; Q9967

== ENCOUNTER 2022-05-29 01:19 | Emergency (ER) | payer SELFPAY ==
[2022-05-29] MEDS ORDERED: Methocarbamol 750 MG TAB PO STA (02:38)
[2022-05-29] MEDS ORDERED: Acetaminophen 325 MG Tab PO ONE (02:40)
[2022-05-29] MEDS ORDERED: hydrOXYzine HCl 25 MG Tab PO ONE (02:40)
[2022-05-29] MEDS ORDERED: Ibuprofen 400 MG Tab PO ONE (02:40)
[2022-05-29 04:15] VITALS: BP 118/65; PULSE 71
== END 2022-05-29 03:36 | disposition home or self-care (01) ==
LOC: MW.ED 01:19
DX: M54.9 Dorsalgia, unspecified (principal); F17.210 Nicotine dependence, cigarettes, uncomplicated; Z88.8 Allergy status to other drugs, medicaments and biological substances; Z88.6 Allergy status to analgesic agent; Z91.018 Allergy to other foods; Z91.040 Latex allergy status; Z79.82 Long term (current) use of aspirin; Z79.899 Other long term (current) drug therapy
CPT/HCPCS: 81003; 99284; A9270; 99283

== ENCOUNTER 2022-06-17 23:55 | Emergency (ER) | payer SELFPAY ==
[2022-06-18] MEDS ORDERED: Nitroglycerin 0.4 MG Tab.SL SL ONE (00:18)
[2022-06-18] MEDS ORDERED: Aspirin 81 MG Tab.Chew PO ONE (00:18)
[2022-06-18 01:02] LABS: BLOOD UREA NITROGEN,BUN 14 mg/dL (7.0-18.0); CARBON DIOXIDE,CO2 21.6 mmol/L (21.0-32.0); CHLORIDE,CL 104 mmol/L (98-107); GLUCOSE RANDOM 97 mg/dL (74-106); SODIUM,NA 139 mmol/L (136-145)
[2022-06-18 01:06] LABS: ESTIMATED GFR 80 mL/min (>60)
[2022-06-18] MEDS ORDERED: Magnesium Oxide 400 MG Tab PO ONE (01:15)
[2022-06-18] MEDS ORDERED: Potassium Chloride 20 MEQ Tab.ER ONE (01:28)
[2022-06-18] MEDS ORDERED: Potassium Chloride 20 MEQ Tab.ER PO ONE (01:29)
[2022-06-18] MEDS ORDERED: Potassium Bicarbonate 25 MEQ Tab.EFF PO SCH (01:30)
[2022-06-18 01:45] VITALS: BP 108/64; PULSE 87
== END 2022-06-18 01:44 | disposition home or self-care (01) ==
LOC: MW.ED 23:55
DX: R07.89 Other chest pain (principal); Z88.8 Allergy status to other drugs, medicaments and biological substances; Z88.6 Allergy status to analgesic agent; Z91.018 Allergy to other foods; Z91.040 Latex allergy status; Z79.899 Other long term (current) drug therapy; Z79.82 Long term (current) use of aspirin; Z20.822 Contact with and (suspected) exposure to COVID-19
CPT/HCPCS: 36415; 80053; 80307; 82550; 84443; 84484; 84702; 85025; 87635; 93005; 99285; A9270; U0002

== ENCOUNTER 2022-09-04 01:47 | Emergency (ER) | payer SELFPAY ==
[2022-09-04] MEDS ORDERED: Ibuprofen 600 MG Tab PO ONE (02:05)
[2022-09-04] MEDS ORDERED: hydrOXYzine HCl 25 MG Tab PO ONE (02:05)
[2022-09-04] MEDS ORDERED: Acetaminophen 500 MG Tab PO ONE (02:05)
[2022-09-04] MEDS ORDERED: Methocarbamol 750 MG TAB PO STA (02:06)
[2022-09-04] MEDS ORDERED: Gabapentin 100 MG Cap PO ONE (03:24)
[2022-09-04] MEDS ORDERED: Acetaminophen/oxyCODONE 325-5 MG Tab PO ONE (03:25)
[2022-09-04 05:24] VITALS: BP 128/72; PULSE 85
== END 2022-09-04 04:37 | disposition home or self-care (01) ==
LOC: MW.ED 01:47
DX: M54.6 Pain in thoracic spine (principal); Z88.6 Allergy status to analgesic agent; Z91.018 Allergy to other foods; Z91.040 Latex allergy status; Z88.8 Allergy status to other drugs, medicaments and biological substances; Z79.899 Other long term (current) drug therapy
CPT/HCPCS: 99283; A9270

== ENCOUNTER 2022-10-07 00:19 | Emergency (ER) | payer SELFPAY ==
[2022-10-07 00:42] VITALS: BP 120/67; PULSE 101
[2022-10-07] MEDS ORDERED: Ibuprofen 600 MG Tab PO ONE (00:54)
[2022-10-07] MEDS ORDERED: traMADol 50 MG Tab PO ONE (00:54)
== END 2022-10-07 01:25 | disposition home or self-care (01) ==
LOC: MW.ED 00:19
DX: M54.50 Low back pain, unspecified (principal); F17.210 Nicotine dependence, cigarettes, uncomplicated; Z88.6 Allergy status to analgesic agent; Z91.040 Latex allergy status; Z91.018 Allergy to other foods; Z79.899 Other long term (current) drug therapy; W19.XXXA Unspecified fall, initial encounter
CPT/HCPCS: 99283; A9270

== ENCOUNTER 2022-10-15 17:33 | Emergency (ER) | payer SELFPAY ==
[2022-10-15] MEDS ORDERED: Lidocaine 5% 700 MG Patch TOP ONE (18:30)
[2022-10-15] MEDS ORDERED: Acetaminophen 325 MG Tab PO ONE (18:31)
[2022-10-15 20:48] VITALS: BP 99/61; PULSE 81
== END 2022-10-15 20:34 | disposition home or self-care (01) ==
LOC: MW.ED 17:33
DX: M79.661 Pain in right lower leg (principal); F17.210 Nicotine dependence, cigarettes, uncomplicated; Z91.040 Latex allergy status; Z91.018 Allergy to other foods; Z88.5 Allergy status to narcotic agent; Z88.8 Allergy status to other drugs, medicaments and biological substances
CPT/HCPCS: 93971; 99283; A9270

== ENCOUNTER 2022-11-22 18:35 | Emergency (ER) | payer SELFPAY ==
[2022-11-22 18:55] VITALS: BP 137/76
[2022-11-22 19:22] VITALS: PULSE 101
== END 2022-11-22 19:22 | disposition home or self-care (01) ==
LOC: MW.ED 18:35
DX: L03.317 Cellulitis of buttock (principal); J45.909 Unspecified asthma, uncomplicated; Z88.8 Allergy status to other drugs, medicaments and biological substances; Z88.5 Allergy status to narcotic agent; Z91.018 Allergy to other foods; Z91.040 Latex allergy status; Z79.899 Other long term (current) drug therapy
CPT/HCPCS: 99282; 99283

== ENCOUNTER 2022-11-24 19:18 | Emergency (ER) | payer SELFPAY ==
[2022-11-24] MEDS ORDERED: Lidocaine 1% PF 2 ML SDV INJECT ONE (19:40)
[2022-11-24] MEDS ORDERED: Sodium Chloride 0.9% 1,000 ML IV ONE (19:40)
[2022-11-24] MEDS ORDERED: Sodium Chloride 0.9% 2.5 ML Syringe FLUSH PRN (19:40)
[2022-11-24] MEDS ORDERED: Sodium Chloride 0.9% 10 ML Syringe FLUSH PRN (19:40)
[2022-11-24] MEDS ORDERED: Ketorolac 30 MG/ML SDV IVPUSH ONE (19:42)
[2022-11-24] MEDS ORDERED: Cephalexin 500 MG Cap PO ONE (20:19)
[2022-11-24] MEDS ORDERED: Acetaminophen/HYDROcodone 325-10 MG Tab PO ONE (20:20)
[2022-11-24 20:25] LABS: CARBON DIOXIDE,CO2 24.9 mmol/L (21.0-32.0); POTASSIUM,K 3.8 mmol/L (3.5-5.1)
[2022-11-24 21:30] VITALS: BP 111/72; PULSE 97
== END 2022-11-24 21:28 | disposition home or self-care (01) ==
LOC: MW.ED 19:18
DX: L03.317 Cellulitis of buttock (principal); J45.909 Unspecified asthma, uncomplicated; Z88.8 Allergy status to other drugs, medicaments and biological substances; Z91.040 Latex allergy status; Z88.5 Allergy status to narcotic agent; Z91.018 Allergy to other foods; Z79.899 Other long term (current) drug therapy
CPT/HCPCS: 10060; 36415; 80053; 83605; 85025; 87040; 96361; 96374; 99283; A9270; J1885; J3490; J7030; 99284

== ENCOUNTER 2023-07-20 02:19 | Emergency (ER) | payer SELFPAY ==
[2023-07-20] MEDS ORDERED: Sodium Chloride 0.9% 10 ML Syringe FLUSH PRN (02:45)
[2023-07-20] MEDS ORDERED: HYDROmorphone 1 MG/ML Syringe IVPUSH ONE (02:45)
[2023-07-20] MEDS ORDERED: Sodium Chloride 0.9% 2.5 ML Syringe FLUSH PRN (02:45)
[2023-07-20] MEDS ORDERED: Ondansetron 4 MG/2 ML SDV IVPUSH ONE (02:45)
[2023-07-20] MEDS ORDERED: Morphine 10 MG/ML SDV IVPUSH ONE (02:48)
[2023-07-20] MEDS ORDERED: Sulfamethoxazole/Trimethoprim 800-160 MG Tab PO ONE (02:50)
[2023-07-20] MEDS ORDERED: Morphine 4 MG/ML Syringe ONE (03:01)
[2023-07-20 03:07] LABS: BASOPHILS ABSOLUTE AUTO 0.04 K/uL (0.00-0.20); BASOPHILS PERCENT AUTO 0.4 % (0.0-1.0); HEMATOCRIT 34.8 % (37.0-47.0); HEMOGLOBIN 12.4 g/dL (12.0-16.0); IMMATURE GRAN ABSOLUTE AUTO 0.01 K/uL (0.00-0.05); IMMATURE GRAN PERCENT AUTO 0.1 % (0.0-0.4); LYMPHOCYTES ABSOLUTE AUTO 3.09 K/uL (1.00-4.80); MEAN CORPUSCULAR HEMOGLOBIN 30.8 pg (28.0-32.0); MEAN CORPUSCULAR HGB CONC 35.6 g/dL (32.0-36.0); MEAN CORPUSCULAR VOLUME 86.6 fL (83.0-99.0); MEAN PLATELET VOLUME 9.5 fL (9.4-12.3); MONOCYTES ABSOLUTE AUTO 0.72 K/uL (0.00-0.80); MONOCYTES PERCENT AUTO 7.2 % (0.0-8.0); NEUTROPHILS ABSOLUTE AUTO 5.81 K/uL (1.80-7.70); NEUTROPHILS PERCENT AUTO 58.3 % (41.0-71.0); PLATELET COUNT,PLT 289 K/uL (150-400); RED BLOOD CELL COUNT 4.02 M/uL (4.10-5.30); WHITE BLOOD CELL COUNT,WBC 9.97 K/uL (3.9-11.3)
[2023-07-20] MEDS: Morphine 2 MG/ML SYRINGE ONE ×2 (03:17→03:18)
[2023-07-20] MEDS ORDERED: VANCOmycin 1.5 GM/300 ML 300 ML IV ONE (03:30)
[2023-07-20 03:33] LABS: A/G RATIO 1.3 (0.9-1.6); ALBUMIN 4.1 g/dL (3.4-5.0); BILIRUBIN TOTAL 0.1 mg/dL (0.2-1.0); CALCIUM 9.3 mg/dL (8.5-10.1); CARBON DIOXIDE,CO2 25.2 mmol/L (21.0-32.0); EST CRCL DRUG DOSING (CG) 82.9 mL/min; POTASSIUM,K 3.5 mmol/L (3.5-5.1); PROTEIN TOTAL,TP 7.3 g/dL (6.4-8.2)
[2023-07-20 04:15] LABS: LACTIC ACID 0.5 mmol/L (0.4-2.0)
[2023-07-20 04:43] VITALS: BP 111/65; PULSE 83
== END 2023-07-20 04:43 | disposition home or self-care (01) ==
LOC: MW.ED 02:19
DX: L02.416 Cutaneous abscess of left lower limb (principal); Z91.040 Latex allergy status; Z91.018 Allergy to other foods; Z88.8 Allergy status to other drugs, medicaments and biological substances; Z88.5 Allergy status to narcotic agent
CPT/HCPCS: 10060; 36415; 80053; 83605; 85025; 87040; 99283; A9270; J2270; J2405; J3370; J3490; 99284

== ENCOUNTER 2023-07-23 19:17 | Emergency (ER) | payer SELFPAY | END 2023-07-23 20:15 | disposition left against medical advice (07) | LOC: MW.ED 19:17 | DX: Z53.21 Procedure and treatment not carried out due to patient leaving prior to being seen by health care provider (principal) ==

== ENCOUNTER 2023-08-11 19:18 | Emergency (ER) | payer SELFPAY ==
[2023-08-11] MEDS ORDERED: Sodium Chloride 0.9% 2.5 ML Syringe FLUSH PRN (19:34)
[2023-08-11] MEDS ORDERED: Sodium Chloride 0.9% 10 ML Syringe FLUSH PRN (19:34)
[2023-08-11 19:44] LABS: BASOPHILS ABSOLUTE AUTO 0.05 K/uL (0.00-0.20); BASOPHILS PERCENT AUTO 0.6 % (0.0-1.0); EOSINOPHILS ABSOLUTE AUTO 0.23 K/uL (0.00-0.45); EOSINOPHILS PERCENT AUTO 2.8 % (0.0-6.0); HEMATOCRIT 36.8 % (37.0-47.0); HEMOGLOBIN 12.9 g/dL (12.0-16.0); IMMATURE GRAN ABSOLUTE AUTO 0.02 K/uL (0.00-0.05); IMMATURE GRAN PERCENT AUTO 0.2 % (0.0-0.4); LYMPHOCYTES ABSOLUTE AUTO 3.23 K/uL (1.00-4.80); LYMPHOCYTES PERCENT AUTO 39.6 % (24.0-44.0); MEAN CORPUSCULAR HEMOGLOBIN 30.5 pg (28.0-32.0); MEAN CORPUSCULAR HGB CONC 35.1 g/dL (32.0-36.0); MEAN PLATELET VOLUME 9.2 fL (9.4-12.3); MONOCYTES ABSOLUTE AUTO 0.55 K/uL (0.00-0.80); MONOCYTES PERCENT AUTO 6.7 % (0.0-8.0); NEUTROPHILS ABSOLUTE AUTO 4.08 K/uL (1.80-7.70); NEUTROPHILS PERCENT AUTO 50.1 % (41.0-71.0); PLATELET COUNT,PLT 284 K/uL (150-400); RED BLOOD CELL COUNT 4.23 M/uL (4.10-5.30); WHITE BLOOD CELL COUNT,WBC 8.16 K/uL (3.9-11.3)
[2023-08-11 20:00] LABS: CALCIUM 9.3 mg/dL (8.5-10.1); CARBON DIOXIDE,CO2 24.3 mmol/L (21.0-32.0); CREATININE 0.8 mg/dL (0.6-1.0); EST CRCL DRUG DOSING (CG) 103.63 mL/min; POTASSIUM,K 3.8 mmol/L (3.5-5.1)
[2023-08-11] MEDS ORDERED: Lidocaine 1% with EPINEPHrine 1:100,000 20 ML MDV ONE (20:30)
[2023-08-11 21:32] VITALS: BP 116/66; PULSE 16
== END 2023-08-11 20:50 | disposition home or self-care (01) ==
LOC: MW.ED 19:18
DX: L02.416 Cutaneous abscess of left lower limb (principal); J45.909 Unspecified asthma, uncomplicated; Z79.899 Other long term (current) drug therapy; Z88.8 Allergy status to other drugs, medicaments and biological substances; Z88.5 Allergy status to narcotic agent; Z91.018 Allergy to other foods; Z91.040 Latex allergy status
CPT/HCPCS: 36415; 80048; 85025; 99283; J3490

== ENCOUNTER 2023-09-01 00:54 | Emergency (ER) | payer SELFPAY ==
[2023-09-01] MEDS ORDERED: Sodium Chloride 0.9% 1,000 ML IV ONE (01:15)
[2023-09-01] MEDS ORDERED: Sodium Chloride 0.9% 2.5 ML Syringe FLUSH PRN (01:15)
[2023-09-01] MEDS ORDERED: Sodium Chloride 0.9% 10 ML Syringe FLUSH PRN (01:15)
[2023-09-01] MEDS ORDERED: Morphine 4 MG/ML Syringe IVPUSH ONE (01:16)
[2023-09-01] MEDS ORDERED: Ondansetron 4 MG/2 ML SDV IVPUSH ONE (01:16)
[2023-09-01] MEDS ORDERED: Naloxone 0.4 MG/ML SDV IVPUSH PRN (01:16)
[2023-09-01 01:33] LABS: BASOPHILS ABSOLUTE AUTO 0.04 K/uL (0.00-0.20); BASOPHILS PERCENT AUTO 0.4 % (0.0-1.0); EOSINOPHILS ABSOLUTE AUTO 0.18 K/uL (0.00-0.45); EOSINOPHILS PERCENT AUTO 1.9 % (0.0-6.0); HEMATOCRIT 36.8 % (37.0-47.0); HEMOGLOBIN 12.7 g/dL (12.0-16.0); IMMATURE GRAN ABSOLUTE AUTO 0.02 K/uL (0.00-0.05); IMMATURE GRAN PERCENT AUTO 0.2 % (0.0-0.4); LYMPHOCYTES ABSOLUTE AUTO 2.96 K/uL (1.00-4.80); LYMPHOCYTES PERCENT AUTO 31.1 % (24.0-44.0); MEAN CORPUSCULAR HEMOGLOBIN 30.2 pg (28.0-32.0); MEAN CORPUSCULAR HGB CONC 34.5 g/dL (32.0-36.0); MEAN CORPUSCULAR VOLUME 87.4 fL (83.0-99.0); MEAN PLATELET VOLUME 9.2 fL (9.4-12.3); MONOCYTES ABSOLUTE AUTO 0.66 K/uL (0.00-0.80); MONOCYTES PERCENT AUTO 6.9 % (0.0-8.0); NEUTROPHILS ABSOLUTE AUTO 5.66 K/uL (1.80-7.70); NEUTROPHILS PERCENT AUTO 59.5 % (41.0-71.0); PLATELET COUNT,PLT 412 K/uL (150-400); RED BLOOD CELL COUNT 4.21 M/uL (4.10-5.30); WHITE BLOOD CELL COUNT,WBC 9.52 K/uL (3.9-11.3)
[2023-09-01 01:46] LABS: INR 0.94 (0.86-1.11)
[2023-09-01 02:02] LABS: A/G RATIO 1.4 (0.9-1.6); ALBUMIN 4.4 g/dL (3.4-5.0); BILIRUBIN TOTAL 0.2 mg/dL (0.2-1.0); CALCIUM 9.8 mg/dL (8.5-10.1); CARBON DIOXIDE,CO2 25.1 mmol/L (21.0-32.0); EST CRCL DRUG DOSING (CG) 82.9 mL/min; POTASSIUM,K 3.4 mmol/L (3.5-5.1); PROTEIN TOTAL,TP 7.6 g/dL (6.4-8.2)
[2023-09-01] MEDS ORDERED: Iopamidol 755 MG/ML 500 ML Multipack Bottle IVPUSH STA (02:12)
[2023-09-01] MEDS ORDERED: diphenhydrAMINE 50 MG/ML SDV IVPUSH ONE (03:07)
[2023-09-01] MEDS ORDERED: Famotidine 20 MG/2 ML SDV IVPUSH ONE (03:07)
[2023-09-01 05:31] VITALS: BP 99/44; PULSE 68
== END 2023-09-01 05:38 | disposition home or self-care (01) ==
LOC: MW.ED 00:54
DX: S06.0X0A Concussion without loss of consciousness, initial encounter (principal); S30.0XXA Contusion of lower back and pelvis, initial encounter; M54.2 Cervicalgia; Z88.5 Allergy status to narcotic agent; Z91.018 Allergy to other foods; Z91.040 Latex allergy status; Z88.8 Allergy status to other drugs, medicaments and biological substances; W01.0XXA Fall on same level from slipping, tripping and stumbling without subsequent striking against object, initial encounter
CPT/HCPCS: 36415; 70450; 71260; 72125; 72128; 72131; 74177; 80053; 83690; 84703; 85025; 85610; 96374; 96375; 99284; J1200; J2270; J2405; J3490; J7030; Q9967

== ENCOUNTER 2024-01-05 15:58 | Emergency (ER) | payer SELFPAY ==
[2024-01-05] MEDS: Lidocaine 4% 1 each Patch TOP STA (17:16)
[2024-01-05] MEDS: Sodium Chloride 0.9% 1,000 ML IV ONE (17:16)
[2024-01-05] MEDS: Orphenadrine 60 MG/2 ML Inj IM ONE (17:19)
[2024-01-05 17:24] LABS: BASOPHILS ABSOLUTE AUTO 0.04 K/uL (0.00-0.20); BASOPHILS PERCENT AUTO 0.5 % (0.0-1.0); EOSINOPHILS ABSOLUTE AUTO 0.11 K/uL (0.00-0.45); EOSINOPHILS PERCENT AUTO 1.3 % (0.0-6.0); HEMATOCRIT 34.6 % (37.0-47.0); HEMOGLOBIN 12.3 g/dL (12.0-16.0); IMMATURE GRAN ABSOLUTE AUTO 0.01 K/uL (0.00-0.05); IMMATURE GRAN PERCENT AUTO 0.1 % (0.0-0.4); LYMPHOCYTES ABSOLUTE AUTO 2.76 K/uL (1.00-4.80); LYMPHOCYTES PERCENT AUTO 33.8 % (24.0-44.0); MEAN CORPUSCULAR HEMOGLOBIN 31.2 pg (28.0-32.0); MEAN CORPUSCULAR HGB CONC 35.5 g/dL (32.0-36.0); MEAN CORPUSCULAR VOLUME 87.8 fL (83.0-99.0); MONOCYTES PERCENT AUTO 7.4 % (0.0-8.0); NEUTROPHILS ABSOLUTE AUTO 4.64 K/uL (1.80-7.70); NEUTROPHILS PERCENT AUTO 56.9 % (41.0-71.0); PLATELET COUNT,PLT 342 K/uL (150-400); RED BLOOD CELL COUNT 3.94 M/uL (4.10-5.30); WHITE BLOOD CELL COUNT,WBC 8.16 K/uL (3.9-11.3)
[2024-01-05 17:50] LABS: A/G RATIO 1.3 (0.9-1.6); BILIRUBIN TOTAL 0.3 mg/dL (0.2-1.0); CALCIUM 9.3 mg/dL (8.5-10.1); CARBON DIOXIDE,CO2 25.6 mmol/L (21.0-32.0); CREATININE 0.9 mg/dL (0.6-1.0); EST CRCL DRUG DOSING (CG) 92.11 mL/min; POTASSIUM,K 3.9 mmol/L (3.5-5.1); PROTEIN TOTAL,TP 7.2 g/dL (6.4-8.2)
[2024-01-05 20:06] VITALS: BP 110/73; PULSE 67
[2024-01-05] MEDS: Methocarbamol 750 MG Tab PO STA (20:14)
== END 2024-01-05 20:15 | disposition home or self-care (01) ==
LOC: MW.ED 15:58
DX: S16.1XXA Strain of muscle, fascia and tendon at neck level, initial encounter (principal); J45.909 Unspecified asthma, uncomplicated; Z88.8 Allergy status to other drugs, medicaments and biological substances; Z88.5 Allergy status to narcotic agent; Z91.040 Latex allergy status; Z79.899 Other long term (current) drug therapy; Z79.51 Long term (current) use of inhaled steroids; Z75.8 Other problems related to medical facilities and other health care; W10.8XXA Fall (on) (from) other stairs and steps, initial encounter
CPT/HCPCS: 36415; 70450; 72125; 80053; 81025; 84703; 85025; 96360; 99284; A9270; J7030; 99283

== ENCOUNTER 2024-04-28 05:46 | Emergency (ER) | payer OTHER ==
[2024-04-28] MEDS: Acetaminophen/HYDROcodone 325-5 MG Tab PO ONE (05:55)
[2024-04-28] MEDS: Baclofen 10 MG Tab PO ONE (06:54)
[2024-04-28] MEDS: Lidocaine 4% 1 each Patch TOP ONE (06:54)
[2024-04-28 06:59] VITALS: BP 115/76; PULSE 87
== END 2024-04-28 06:59 | disposition home or self-care (01) ==
LOC: MW.ED 05:46
DX: S16.1XXA Strain of muscle, fascia and tendon at neck level, initial encounter (principal); S20.211A Contusion of right front wall of thorax, initial encounter; S40.011A Contusion of right shoulder, initial encounter; Z79.899 Other long term (current) drug therapy; Z88.8 Allergy status to other drugs, medicaments and biological substances; Z91.018 Allergy to other foods; Z88.1 Allergy status to other antibiotic agents; Z91.040 Latex allergy status; V43.52XA Car driver injured in collision with other type car in traffic accident, initial encounter; Y92.410 Unspecified street and highway as the place of occurrence of the external cause
CPT/HCPCS: 71045; 72125; 73030; 99285; A9270

== ENCOUNTER 2024-06-01 18:08 | Emergency (ER) | payer BC ==
[2024-06-01] MEDS: Ibuprofen 400 MG Tab PO ONE (20:23)
[2024-06-01] MEDS: Acetaminophen 500 MG Tab PO ONE (20:23)
[2024-06-01 20:29] VITALS: BP 114/72; PULSE 78
== END 2024-06-01 21:03 | disposition home or self-care (01) ==
LOC: MW.ED 18:08
DX: T26.41XA Burn of right eye and adnexa, part unspecified, initial encounter (principal); T31.0 Burns involving less than 10% of body surface; J45.909 Unspecified asthma, uncomplicated; Z79.899 Other long term (current) drug therapy; Z88.8 Allergy status to other drugs, medicaments and biological substances; Z88.1 Allergy status to other antibiotic agents; Z75.8 Other problems related to medical facilities and other health care; Z88.5 Allergy status to narcotic agent; Y99.0 Civilian activity done for income or pay; Z91.018 Allergy to other foods; Z91.040 Latex allergy status; W31.1XXA Contact with metalworking machines, initial encounter
CPT/HCPCS: 70030; 99283; A9270

== ENCOUNTER 2024-07-07 17:03 | Emergency (ER) | payer SELFPAY ==
[2024-07-07 17:49] LABS: BASOPHILS ABSOLUTE AUTO 0.04 K/uL (0.00-0.20); BASOPHILS PERCENT AUTO 0.5 % (0.0-1.0); EOSINOPHILS ABSOLUTE AUTO 0.08 K/uL (0.00-0.45); HEMOGLOBIN 12.4 g/dL (12.0-16.0); IMMATURE GRAN ABSOLUTE AUTO 0.02 K/uL (0.00-0.05); IMMATURE GRAN PERCENT AUTO 0.2 % (0.0-0.4); LYMPHOCYTES ABSOLUTE AUTO 2.45 K/uL (1.00-4.80); LYMPHOCYTES PERCENT AUTO 30.1 % (24.0-44.0); MEAN CORPUSCULAR HEMOGLOBIN 30.3 pg (28.0-32.0); MEAN CORPUSCULAR HGB CONC 34.4 g/dL (32.0-36.0); MEAN PLATELET VOLUME 8.9 fL (9.4-12.3); MONOCYTES ABSOLUTE AUTO 0.51 K/uL (0.00-0.80); MONOCYTES PERCENT AUTO 6.3 % (0.0-8.0); NEUTROPHILS ABSOLUTE AUTO 5.05 K/uL (1.80-7.70); NEUTROPHILS PERCENT AUTO 61.9 % (41.0-71.0); PLATELET COUNT,PLT 301 K/uL (150-400); RED BLOOD CELL COUNT 4.09 M/uL (4.10-5.30); WHITE BLOOD CELL COUNT,WBC 8.15 K/uL (3.9-11.3)
[2024-07-07 17:51] LABS: APPEARANCE,URINE CLEAR; BILIRUBIN,URINE NEGATIVE (NEGATIVE); COLOR,URINE YELLOW; GLUCOSE,URINE NEGATIVE (NEGATIVE); KETONES,URINE NEGATIVE (NEGATIVE); LEUKOCYTE ESTERASE,URINE NEGATIVE (NEGATIVE); NITRITE,URINE NEGATIVE (NEGATIVE); OCCULT BLOOD,URINE TRACE-INTACT (NEGATIVE); PH,URINE 7.5 (5.0-8.0); PROTEIN,URINE NEGATIVE (NEGATIVE); UROBILINOGEN,URINE 0.2 EU/dL (<2.0)
[2024-07-07 18:03] LABS: EPITHELIAL CELLS,URINE FEW (NONE-FEW); RBC,URINE 0-2 (0-2/HPF); WBC,URINE NONE SEEN (0-5/HPF)
[2024-07-07 18:04] LABS: BACTERIA,URINE FEW (NEGATIVE)
[2024-07-07 18:18] LABS: A/G RATIO 1.3 (0.9-1.6); ALBUMIN 4.2 g/dL (3.4-5.0); BILIRUBIN TOTAL 0.4 mg/dL (0.2-1.0); CALCIUM 9.5 mg/dL (8.5-10.1); CARBON DIOXIDE,CO2 26.5 mmol/L (21.0-32.0); EST CRCL DRUG DOSING (CG) 82.18 mL/min; POTASSIUM,K 3.7 mmol/L (3.5-5.1); PROTEIN TOTAL,TP 7.4 g/dL (6.4-8.2)
[2024-07-07] MEDS: Ketorolac 10 MG Tab PO ONE (18:35)
[2024-07-07 20:15] LABS: HEMATOCRIT 34.9 % (37.0-47.0); HEMOGLOBIN 12.1 g/dL (12.0-16.0)
[2024-07-07] MEDS: Acetaminophen/HYDROcodone 325-5 MG Tab PO ONE (20:16)
[2024-07-07 20:44] VITALS: BP 116/71; PULSE 85
== END 2024-07-07 20:45 | disposition home or self-care (01) ==
LOC: MW.ED 17:03
DX: N83.201 Unspecified ovarian cyst, right side (principal); Z75.8 Other problems related to medical facilities and other health care
CPT/HCPCS: 36415; 76830; 80053; 81001; 81025; 85014; 85018; 85025; 99284; A9270; 99283

== ENCOUNTER 2024-07-19 02:31 | Emergency (ER) | payer SELFPAY ==
[2024-07-19] MEDS: oxyCODONE 5 MG Tab PO ONE (03:10)
[2024-07-19] MEDS: Ketorolac 30 MG/ML SDV IM ONE (03:10)
[2024-07-19 04:01] VITALS: BP 130/47; PULSE 87
== END 2024-07-19 04:01 | disposition home or self-care (01) ==
LOC: MW.ED 02:31
DX: M25.561 Pain in right knee (principal); J45.909 Unspecified asthma, uncomplicated; Z79.899 Other long term (current) drug therapy; Z88.8 Allergy status to other drugs, medicaments and biological substances; Z88.5 Allergy status to narcotic agent; Z91.018 Allergy to other foods; Z91.040 Latex allergy status; Z88.3 Allergy status to other anti-infective agents
CPT/HCPCS: 73560; 96372; 99283; A9270; J1885

== ENCOUNTER 2024-10-24 03:46 | Emergency (ER) | payer MEDICAID, OTHER ==
[2024-10-24] MEDS: Ketorolac 30 MG/ML SDV IM ONE (04:07)
[2024-10-24] MEDS: oxyCODONE 5 MG Tab PO ONE (04:54)
[2024-10-24 04:57] VITALS: BP 113/54; PULSE 96
== END 2024-10-24 04:56 | disposition home or self-care (01) ==
LOC: MW.ED 03:46
DX: M25.561 Pain in right knee (principal); J45.909 Unspecified asthma, uncomplicated; Z88.8 Allergy status to other drugs, medicaments and biological substances; Z91.018 Allergy to other foods; Z91.040 Latex allergy status; Z79.899 Other long term (current) drug therapy; Z79.51 Long term (current) use of inhaled steroids; X50.0XXA Overexertion from strenuous movement or load, initial encounter; Y93.89 Activity, other specified
CPT/HCPCS: 73562; 96372; 99283; A9270; J1885